=== PATIENT | female | born 1955 | race Caucasian/White ===

== ENCOUNTER 2016-05-03 10:28 | Outpatient (CLI) | payer OTHER | END 2016-05-03 10:29 | disposition home or self-care (01) | DX: E11.9 Type 2 diabetes mellitus without complications (principal) ==

== ENCOUNTER 2016-05-27 12:09 | Outpatient (CLI) | payer OTHER | END 2016-05-27 12:10 | disposition home or self-care (01) | DX: R92.1 Mammographic calcification found on diagnostic imaging of breast (principal) ==

== ENCOUNTER 2016-10-16 14:01 | Outpatient (CLI) | payer OTHER ==
[2016-10-16 20:26] LABS: CREATININE 1.4 mg/dL (0.4-1.0)
== END 2016-10-16 14:02 ==
LOC: LAB.WCP 14:01
PROVIDERS: ATTEND Family Medicine
DX: C79.51 Secondary malignant neoplasm of bone (principal)
CPT/HCPCS: 36415; 82565

== ENCOUNTER 2016-10-21 11:31 | Outpatient (CLI) | payer OTHER ==
--- NOTE | 2016-10-21 18:56 | CT Report ---
NONCONTRAST CT EXAM OF THE CHEST: 10/21/2016 CLINICAL HISTORY: A 61-year-old female who has a chronic cough. Only a noncontrast exam was done. Patient had an elevated creatinine of 1.4 with a GFR today of only 38. TECHNIQUE: Noncontrast CT exam was done in axial, coronal, and sagittal reconstruction images at 5 x 5 mm intervals. No comparison studies are available. In accordance with CT protocol optimization, one or more of the following dose reduction techniques were utilized for this exam: automated exposure control, adjustment of mA and/or KV based on patient size, or use of iterative reconstructive technique. FINDINGS: Thyroid appears mildly enlarged. Recommend clinical correlation. Thyroid enlargement can be a result of familial goiter, Graves disease, or Gosia's thyroiditis. Surgical clips are seen in the right axilla and right breast with some calcifications also noted in the right breast. This most likely is the result of a lumpectomy with axillary node dissection. There is some associated scarring present in the right breast especially toward the tail of the right breast. Left axilla and left breast show no significant abnormality. Mediastinum shows a few small benign-appearing lymph nodes. Normal cardiac size is seen. Vascular calcification is noted in the aortic arch and at the origin of the right subclavian artery. Lungs demonstrate an equivocal finding in regard to a tiny 3 mm nodule in the lateral aspect of the right middle lobe. Nodules of this size are not considered significant and do not require followup exams. No significant infiltrates are seen. No bronchial thickening is noted. Adrenal glands appear normal. Bones demonstrate sclerotic change along the anterior aspect of one of the lower thoracic vertebrae. This most likely is the result of osteoarthritis. Examination is negative for metastatic bone disease. Spleen demonstrates mild nonspecific enlargement. Recommend clinical correlation. IMPRESSION: 1. MEDIASTINUM AND LUNGS SHOW NO SIGNIFICANT ABNORMALITY. 2. MILD NONSPECIFIC ENLARGEMENT OF THE SPLEEN IS SEEN. 3. EVIDENCE OF RIGHT BREAST LUMPECTOMY WITH RIGHT AXILLARY NODE DISSECTION IS NOTED. JOB #: [id number] EXT JOB #: [id number] [facility]
== END 2016-10-21 11:32 | disposition home or self-care (01) ==
LOC: DI 11:31
PROVIDERS: ATTEND Family Medicine
DX: R05 Cough (principal)
CPT/HCPCS: 71250

== ENCOUNTER 2016-11-21 11:48 | Outpatient (CLI) | payer OTHER ==
--- NOTE | 2016-11-21 17:13 | CT Report ---
CT PARANASAL SINUSES WITHOUT CONTRAST: 11/21/2016 CLINICAL INDICATION: Sinusitis, chronic cough. Axial CT images of the paranasal sinuses were obtained without contrast. Sagittal and coronal recons tructions were performed. In accordance with CT protocol optimization, one or more of the following dose reduction techniques w ere utilized for this exam: automated exposure control, adjustment of mA and/or KV based on patient size, or use of iterative reconstructive technique. There is mucosal thickening in the right maxillary sinus and right ethmoid air cells. The right osti omeatal unit is patent. The nasal septum is midline. The other paranasal sinuses are clear. The le ft ostiomeatal unit is patent. There is no evidence of osseous destruction. The visualized intraorb ital contents are unremarkable. IMPRESSION: CHRONIC RIGHT MAXILLARY AND ETHMOID SINUS DISEASE. JOB #: [id number] EXT JOB #:[id number]
== END 2016-11-21 11:49 | disposition home or self-care (01) ==
LOC: DI 11:48
PROVIDERS: ATTEND Family Medicine
DX: J32.0 Chronic maxillary sinusitis (principal); J32.2 Chronic ethmoidal sinusitis
CPT/HCPCS: 70486

== ENCOUNTER 2016-11-27 13:01 | Outpatient (CLI) | payer OTHER ==
--- NOTE | 2016-11-28 11:11 | Mammography Report ---
DIGITAL DIAGNOSTIC BILATERAL MAMMOGRAM: 11/27/2016 CLINICAL INDICATION: History of right breast cancer, status post lumpectomy and radiation therapy, fo llowup calcifications. TECHNIQUE: Bilateral CC, MLO views, right true lateral and spot magnification views. COMPARISON: 05/27/2016, 11/24/2015, 10/23/2015, 10/21/2014, 08/20/2013, 08/05/2012, 06/26/2011, 06/05, 06/02/2009. FINDINGS: The breasts again demonstrate scattered fibroglandular densities. Postoperative and posttr eatment changes in the right breast are stable. Calcifications in the right lower central breast cont inue to coarsen, likely posttreatment in etiology. No suspicious masses, clustered microcalcification s, or regions of architectural distortion are identified. IMPRESSION: PROBABLE BENIGN FINDINGS. RECOMMENDATION: DIAGNOSTIC RIGHT MAMMOGRAM IN SIX MONTHS, TO ASSURE STABILITY. BIRADS CATEGORY 3-PROBABLE BENIGN FINDINGS. STANDARD QUALIFYING STATEMENTS 1. This examination was reviewed with the aid of Computer-Aided Detection (CAD). 2. A negative or benign imaging report should not delay biopsy if clinically suspicious findings are present. Consider surgical consultation if warranted. More than 5% of cancers are not identified by i maging. 3. Dense breasts may obscure an underlying neoplasm. JOB #: [id number] EXT JOB #:
== END 2016-11-27 13:02 | disposition home or self-care (01) ==
LOC: DI 13:01
PROVIDERS: ATTEND Family Medicine
DX: R92.1 Mammographic calcification found on diagnostic imaging of breast (principal); Z85.3 Personal history of malignant neoplasm of breast
CPT/HCPCS: 77066

== ENCOUNTER 2017-01-16 09:43 | Day surgery (SDC) | payer OTHER ==
[2017-01-16] MEDS ORDERED: MIDAZOLAM 2 MG/2 ML VIAL IVP ONE (10:44)
[2017-01-16] MEDS ORDERED: ONDANSETRON 4 MG/2 ML VIAL IVP ONE (10:44)
[2017-01-16] MEDS ORDERED: fentaNYL 100 MCG/2 ML VIAL IVP ONE (10:44)
[2017-01-16] MEDS ORDERED: LACTATED RINGERS 1,000 ML IV ONE (10:50)
[2017-01-16 11:44] VITALS: BP 102/68
== END 2017-01-16 09:44 | disposition home or self-care (01) ==
LOC: SDS 09:43
PROVIDERS: ATTEND Surgery
PROC: 0DB78ZX Excision of Stomach, Pylorus, Via Natural or Artificial Opening Endoscopic, Diagnostic (ICD-10-PCS; principal; 2017-01-16 11:00)
DX: K31.89 Other diseases of stomach and duodenum (principal); C79.51 Secondary malignant neoplasm of bone; C50.911 Malignant neoplasm of unspecified site of right female breast; E11.9 Type 2 diabetes mellitus without complications; Z79.4 Long term (current) use of insulin; K21.9 Gastro-esophageal reflux disease without esophagitis; Z87.891 Personal history of nicotine dependence
CPT/HCPCS: 43239; 88305; J7120

== ENCOUNTER 2017-06-12 06:08 | Day surgery (SDC) | payer OTHER ==
[2017-06-12 06:57] LABS: CALCIUM 9.1 mg/dL (8.5-10.3); CREATININE 2.7 mg/dL (0.4-1.0)
--- NOTE | 2017-06-12 07:22 | HISTORY & PHYSICAL EXAMINATION ---
HPI - History of Present Illness HPI Comment/Other: Francisca is here for colonoscopy for severe transfusion dependent anemia. Past Medical History: Reviewed history from 01/08/2017 and no changes required: NKDA R breast cancer--infiltrating ductal cancer. Rx with surgery, chemo and radiation. 04/25 nodes +. Tumor 2.5cm in size. Transitional Cell Bladder Ca Anxiety Chest Pain Heart Murmur High Blood Pressure Chronic Cough Diabetes Acid Reflux Heartburn Past Surgical History: Reviewed history from 01/08/2017 and no changes required: R lumpectomy and axillary node dissection--2006 Cataract Extraction--R eye 2012 Perirectal Abcess C-Sections Family History Summary: Reviewed history Last on 01/08/2017 and no changes required:05/07/2017 Father (biol.) - Has a father - Committed suicide. - Entered On: 2013 Mother (biol.) - Has Family History of Heart Disease - Entered On: 05/07/2017 Mother (biol.) - Has Family History of Kidney/Renal Disease - Entered On: 2017 Sister (full) - Has Family History of Uterine Cancer - Entered On: 05/07/2017 Sister (full) - Has Family History of Other Cancer - Entered On: 05/07/2017 General Comments - FH: Sister had endometrial cancer. Father committed suicide. Sister has bipolar disorder. Parkinson's--grandfather. Social History: Reviewed history from 03/26/2010 and no changes required: Patient is a former smoker. Alcohol Use - no , one son Risk Factors: Smoked Tobacco Use: Former smoker Cigarettes: Yes -- 1 pack(s) per day, Year quit: 1995 Years Since Last Quit: 22 Drug use: no Alcohol use: no Exercise: no Review of Systems General Denies weight loss. GI Bleeding hemorrhoids. Denies vomiting, diarrhea, constipation, change in bowel habits, melena and hematochezia. CV Complains of chest pains. Resp Denies shortness of breath. Psych Denies anxiety. Heme easy bruising, nose bleeds anemia Medications were reviewed with the patient during this visit. Allergies were reviewed with the patient during this visit. Allergies: LEVAQUIN (Critical) INDOCIN (Critical) * TAPE (Critical) * MICARDIS (Critical) * METFORMIN (Critical) * LISINOPRIL (Moderate) Physical Exam General: normal appearance and obese. Lungs: clear bilaterally to A & P Heart: regular rate and rhythm, S1, S2 without murmurs, rubs, gallops, or clicks Abdomen: bowel sounds positive; abdomen soft and non-tender without masses, organomegaly, or hernias noted Pulses: pulses normal in all 4 extremities Extremities: no clubbing, cyanosis, edema, or deformity noted with normal full range of motion of all joints Cervical Nodes: no significant adenopathy Psych: alert and cooperative; normal mood and affect; normal attention span and concentration Impression & Recommendations: Problem # 1: severe anemia Will proceed with colonoscopy. PMH/PSH - Past Medical History Cardiovascular: positive: Hypertension, High cholesterol, Murmur Respiratory: positive: None Neuro: positive: None Endocrine/Autoimmune: positive: Type 2 diabetes GI: positive: Hemorrhoids : positive: Renal insuffiency HEENT: positive: Chronic sinusitis Psych: positive: None Musculoskeletal: positive: Fatigue, Chronic back pain Derm: positive: Psoriasis MRSA Hx?: No - Past Surgical History General: positive: Colonoscopy /FINGER WAVER: positive: section HEENT: positive: Cataracts Social & Family Hx - Social History Does the pt smoke?: No Smoking Status: Former smoker Meds/Allgy - Home Medications Home Medications: Ambulatory Orders Medication Instructions Recorded Confirmed Folic Acid 1 mg PO DAILY 10/21/12 06/12/17 Insulin Aspart [Novolog Flexpen] 9 - 15 units SQ TIDWM 03/20/15 06/12/17 Insulin Glargine [Lantus Solostar] 40 units SQ QPM 03/20/15 06/12/17 Letrozole [Femara] 2.5 mg PO DAILY 03/20/15 06/12/17 Palbociclib [Ibrance] 125 mg PO .21DAYSON,7DAYSOFF 03/20/15 06/12/17 Cyclobenzaprine HCl 10 mg PO PRN PRN 06/10/17 06/10/17 Famotidine 20 mg PO DAILY 06/10/17 06/12/17 Potassium Chloride [Klor-Con M20] 20 meq PO BID 06/10/17 06/12/17 amLODIPine [Norvasc] 5 mg PO DAILY 06/10/17 06/12/17 - Allergies Allergies/Adverse Reactions: Allergies Allergy/AdvReac Type Severity Reaction Status Date / Time indomethacin [From Indocin] Allergy Intermediate Rash Verified 06/10/17 15:10 lisinopril Allergy Intermediate cough Verified 06/10/17 15:10 levofloxacin [From Levaquin] Allergy Unknown rash? Verified 06/10/17 15:10 oxycodone HCl * AdvReac Emesis Verified 06/10/17 15:10 [From Percocet] shrimp Allergy Intermediate Hives Uncoded 06/10/17 15:10 Exam - Vital Signs Vital Signs: Vital Signs x48h Temp Pulse Resp BP Pulse Ox 06/12/17 06:41 37.4 C 116 H 16 104/85 H 100 Results - Lab Results Fish Bones: 06/12/17 06:45 Other Lab Results: Lab Results x24hrs 06/12/17 06/12/17 Range/Units 06:45 06:43 Sodium 137 (135-145) mmol/L Potassium 3.2 L (3.5-5.0) mmol/L Chloride 110 (101-111) mmol/L Carbon Dioxide 14 L (21-32) mmol/L Anion Gap 13.0 (6-13) BUN 19 (6-20) mg/dL Creatinine 2.7 H (0.4-1.0) mg/dL Estimated GFR (MDRD) 18 L (>89) Glucose 182 H (70-100) mg/dL POC Whole Bld Glucose 177 H (70 - 100) mg/dL Calcium 9.1 (8.5-10.3) mg/dL
[2017-06-12] MEDS ORDERED: LACTATED RINGERS 1,000 ML IV ONE (07:24)
[2017-06-12] MEDS ORDERED: LIDOCAINE 1% 50 ML MDV ONE (07:26)
[2017-06-12] MEDS ORDERED: LIDOCAINE-MPF 2% 5 ML VIAL IM ONE (07:57)
[2017-06-12] MEDS ORDERED: PROPOFOL 200 MG/20 ML VIAL IVP ONE (07:57)
[2017-06-12 08:40] VITALS: BP 116/54
== END 2017-06-12 06:09 | disposition home or self-care (01) ==
LOC: SDS 06:08
PROVIDERS: ATTEND Surgery
PROC: 0DJD8ZZ Inspection of Lower Intestinal Tract, Via Natural or Artificial Opening Endoscopic (ICD-10-PCS; principal; 2017-06-12 07:30)
DX: D64.9 Anemia, unspecified (principal); K57.30 Diverticulosis of large intestine without perforation or abscess without bleeding; K64.8 Other hemorrhoids; K64.4 Residual hemorrhoidal skin tags; E11.9 Type 2 diabetes mellitus without complications; Z79.4 Long term (current) use of insulin; I10 Essential (primary) hypertension; L40.9 Psoriasis, unspecified; E78.00 Pure hypercholesterolemia, unspecified; Z87.891 Personal history of nicotine dependence
CPT/HCPCS: 36415; 45378; 80048; J7120

== ENCOUNTER 2017-06-14 11:31 | Inpatient (IN) | payer OTHER ==
[2017-06-14] MEDS ORDERED: SODIUM CHLORIDE 0.9% 1,000 ML IV ONE ×2 (11:57)
[2017-06-14] MEDS ORDERED: ONDANSETRON 4 MG/2 ML VIAL IVP STA (11:58)
[2017-06-14] MEDS ORDERED: fentaNYL 100 MCG/2 ML VIAL IVP STA (11:58)
--- NOTE | 2017-06-14 12:19 | ED Physician Documentation ---
PD HPI ABD PAIN - Stated complaint Stated Complaint: FEMALE - Chief complaint Chief Complaint: Abd Pain - History obtained from History obtained from: Patient - History of Present Illness Timing - onset: How many days ago (2) Timing - duration: Days (2) Timing - details: Gradual onset Pain level max: 10 Pain level now: 10 Quality: Aching, Pain Location: RLQ, Other (rectal) Improved by: Other (nothing) Worsened by: Other (everything) Associated symptoms: Fever. No: Nausea, Vomiting, Hematemesis, Melena, Hematochezia Recently seen: Surgery (had a colonoscopy 2 weeks ago) - Additional information Additional information: pt with a history of metastatic breast cancer with mets to bones. Currently on chemotherapy. Had renal failure in april of this year at [facility]. States pain of the R side of abdomen since then. Now worse since the colonoscopy. Review of Systems Ten Systems: 10 systems reviewed and negative Constitutional: reports: Fever (today), Chills Ears: denies: Ear pain Nose: reports: Rhinorrhea / runny nose, Congestion Throat: denies: Sore throat Cardiac: denies: Chest pain / pressure Respiratory: reports: Cough (dry) GI: denies: Vomiting, Diarrhea Skin: denies: Rash Musculoskeletal: denies: Neck pain, Back pain Neurologic: denies: Headache PD PAST MEDICAL HISTORY - Past Medical History Cardiovascular: Hypertension, High cholesterol, Murmur Respiratory: None Neuro: None Endocrine/Autoimmune: Type 2 diabetes GI: Hemorrhoids : Renal insuffiency HEENT: Chronic sinusitis Psych: None Musculoskeletal: Fatigue, Chronic back pain Derm: Psoriasis - Past Surgical History Past Surgical History: Yes General: Colonoscopy /CORE PLACER: section HEENT: Cataracts - Present Medications Home Medications: Ambulatory Orders Medication Instructions Recorded Confirmed Folic Acid 1 mg PO DAILY 10/21/12 06/14/17 Insulin Aspart [Novolog Flexpen] 10 units SUBQ TIDWM 03/20/15 06/14/17 Insulin Glargine [Lantus Solostar] 40 units SUBQ QPM 03/20/15 06/14/17 Letrozole [Femara] 2.5 mg PO DAILY 03/20/15 06/14/17 Palbociclib [Ibrance] 125 mg PO .21DAYSON,7DAYSOFF 03/20/15 06/14/17 Cyclobenzaprine HCl 10 mg PO TID PRN 06/10/17 06/14/17 Famotidine 20 mg PO BID 06/10/17 06/14/17 Potassium Chloride [Klor-Con M20] 20 meq PO BIDWM 06/10/17 06/14/17 amLODIPine [Norvasc] 5 mg PO DAILY 06/10/17 06/14/17 Aspirin [Aspirin EC] 81 mg PO DAILY 06/14/17 06/14/17 Atorvastatin Calcium 40 mg PO QPM 06/14/17 06/14/17 Spironolactone [Spironolactone] 50 mg PO DAILY 06/14/17 06/14/17 - Allergies Allergies/Adverse Reactions: Allergies Allergy/AdvReac Type Severity Reaction Status Date / Time indomethacin [From Indocin] Allergy Intermediate Rash Verified 06/14/17 11:47 lisinopril Allergy Intermediate cough Verified 06/14/17 11:47 levofloxacin [From Levaquin] Allergy Unknown rash? Verified 06/14/17 11:47 oxycodone HCl * AdvReac Emesis Verified 06/14/17 11:47 [From Percocet] shrimp Allergy Intermediate Hives Uncoded 06/14/17 11:47 - Social History Does the pt smoke?: No Smoking Status: Former smoker PD ED PE NORMAL - Vitals Vital signs reviewed: Yes - General General: Alert and oriented X 3, No acute distress - HEENT HEENT: Moist mucous membranes - Neck Neck: Supple, no meningeal sign - Cardiac Cardiac: RRR - Respiratory Respiratory: No respiratory distress, Clear bilaterally - Abdomen Abdomen: Other (TTP RLQ at Mcburney's point. + rebound and guarding.) - Derm Derm: Warm and dry - Neuro Neuro: Alert and oriented X 3 - Psych Psych: Normal mood, Normal affect Results - Vitals Vitals: Vital Signs - 24 hr 06/14/17 06/14/17 11:42 13:58 Temperature 38.6 C H 38.5 C H Heart Rate 111 H 98 Respiratory 22 16 Rate Blood Pressure 133/63 H 99/51 L O2 Saturation 100 98 Oxygen O2 Source Room air - Labs Labs: Laboratory Tests 06/14/17 06/14/17 06/14/17 12:23 12:23 12:23 WBC 2.1 L RBC 2.25 L Hgb 7.6 L Hct 21.6 L MCV 96.0 MCH 33.9 H MCHC 35.4 RDW 23.8 H Plt Count 67 L MPV 10.0 Neut # Not Reportable Lymph # Not Reportable [place] # Not Reportable Eos # Not Reportable Baso # Not Reportable Absolute Nucleated RBC Not Reportable Total Counted 100 Band Neuts % (Manual) 5 Abnorm Lymph % (Manual) 0 Myelocytes % 2 H Promyelocytes % 1 H Nucleated RBC % Not Reportable Neutrophils # (Manual) 1.7 Lymphocytes # (Manual) 0.3 L Monocytes # (Manual) 0.0 Eosinophils # (Manual) 0.0 Basophils # (Manual) 0.0 Differential Comment MANUAL DIFFERENTIAL Platelet Estimate DECREASED (<130,000) RBC Morph Micro Appear OVALOCYTES Sodium 136 Potassium 2.6 L Chloride 109 Carbon Dioxide 16 L Anion Gap 11.0 BUN 15 Creatinine 2.2 H Estimated GFR (MDRD) 23 L Glucose 135 H Lactic Acid Calcium 8.7 Total Bilirubin 1.5 H AST 34 ALT 20 Alkaline Phosphatase 100 Total Protein 7.9 Albumin 3.7 Globulin 4.2 Albumin/Globulin Ratio 0.9 L Lipase 77 H Urine Color Urine Clarity Urine pH Ur Specific [place] Urine Protein Urine Glucose (UA) Urine Ketones Urine Occult Blood Urine Nitrite Urine Bilirubin Urine Urobilinogen Ur Leukocyte Esterase Urine RBC Urine WBC Ur Squamous Epith Cells Urine Bacteria Urine Casts Ur Microscopic Review Urine Culture Comments Blood Type Blood Type Recheck A POSITIVE Antibody Screen Crossmatch IS Only 06/14/17 06/14/17 06/14/17 12:57 13:27 13:27 WBC RBC Hgb Hct MCV MCH MCHC RDW Plt Count MPV Neut # Lymph # [place] # Eos # Baso # Absolute Nucleated RBC Total Counted Band Neuts % (Manual) Abnorm Lymph % (Manual) Myelocytes % Promyelocytes % Nucleated RBC % Neutrophils # (Manual) Lymphocytes # (Manual) Monocytes # (Manual) Eosinophils # (Manual) Basophils # (Manual) Differential Comment Platelet Estimate RBC Morph Micro Appear Sodium Potassium Chloride Carbon Dioxide Anion Gap BUN Creatinine Estimated GFR (MDRD) Glucose Lactic Acid 1.7 Calcium Total Bilirubin AST ALT Alkaline Phosphatase Total Protein Albumin Globulin Albumin/Globulin Ratio Lipase Urine Color YELLOW Urine Clarity CLEAR Urine pH 6.0 Ur Specific [place] 1.025 Urine Protein 100 H Urine Glucose (UA) NEGATIVE Urine Ketones NEGATIVE Urine Occult Blood MODERATE H Urine Nitrite NEGATIVE Urine Bilirubin NEGATIVE Urine Urobilinogen 1 (NORMAL) Ur Leukocyte Esterase NEGATIVE Urine RBC 0-5 Urine WBC 0-3 Ur Squamous Epith Cells RARE Squamous Urine Bacteria Few Urine Casts 0-2 Granular Casts Ur Microscopic Review INDICATED Urine Culture Comments NOT INDICATED Blood Type A POSITIVE Blood Type Recheck Antibody Screen NEGATIVE Crossmatch IS Only See Detail - Rads (name of study) CT abd/pelvis Radiology: Prelim report reviewed, EMP read contemporaneously, See rad report ( Possible mild ascending colon acute colitis. Mild stranding seen in the bilateral lateral recesses and paracolic gutters and there could be a minimal amount of ascites present. Normal appendix. Multiple areas of sclerosis are seen in the right iliac bone, left proximal femur, L4 pedicle and transverse process and at the T9 vertebral body, could represent blastic bone metastasis. Correlate clinically. Perianal abscesses with gas, the largest is on the right measuring 1.9 x 3.8 x 2.3 cm. The perianal abscess on the left side measures 3.2 x 1.2 x 1.9 cm. Perianal gas pockets are seen more proximally. ) PD MEDICAL DECISION MAKING - ED course Complexity details: reviewed results, re-evaluated patient, considered differential, d/w patient, d/w family ED course: Patient is a 62-year-old female who presents to the emergency department with a perirectal abscess, concern for early sepsis. Given Zosyn and Flagyl. Her fever broke with Ofirmev. IV fluids given. Consulted general surgery, Dr. Cruz we will plan to take the patient to the operating room once she is stable. Discussed the case with Dr. Gutierrez, hospitalist who will admit the patient to the ICU for further care. This document was made in part using voice recognition software. While efforts are made to proofread this document, sound alike and grammatical errors may occur. Departure - Departure Disposition: ED Transfer to [facility] Clinical Impression: Hypokalemia, Perirectal abscess, Acute renal insufficiency Fever Qualifiers: Fever type: unspecified Qualified Code(s): R50.9 - Fever, unspecified T2DM (type 2 diabetes mellitus) Qualifiers: Diabetes mellitus complication status: with unspecified complications Diabetes mellitus fdc insulin use: unspecified fdc insulin use status Qualified Code(s): E11.8 - Type 2 diabetes mellitus with unspecified complications Condition: Stable Discharge Date/Time: 06/14/17 17:10
[2017-06-14 12:36] LABS: BASOPHILS % (AUTO) 3.5 %; EOSINOPHILS % (AUTO) 0.1 %; HGB - HEMOGLOBIN 7.6 g/dL (12.0-16.0); LYMPHOCYTES % (AUTO) 12.2 %; MEAN CORPUSCULAR HEMOGLOBIN 33.9 pg (27.0-31.0); MEAN CORPUSCULAR HGB CONC 35.4 g/dL (32.0-36.0); NEUTROPHILS % (AUTO) 72.2 %; PLT - PLATELET COUNT 67 10^3/uL (130-450); RED BLOOD COUNT 2.25 10^6/uL (4.20-5.40); RED CELL DISTRIBUTION WIDTH 23.8 % (12.0-15.0); WHITE BLOOD COUNT 2.1 x10^3/uL (4.8-10.8)
[2017-06-14 12:43] LABS: ABNORMAL LYMPHS % (MANUAL) 0 %
[2017-06-14 12:51] LABS: ALBUMIN 3.7 g/dL (3.2-5.5); ALBUMIN/GLOBULIN RATIO 0.9 (1.0-2.2); BILIRUBIN,TOTAL 1.5 mg/dL (0.2-1.0); CALCIUM 8.7 mg/dL (8.5-10.3); CREATININE 2.2 mg/dL (0.4-1.0); TOTAL PROTEIN 7.9 g/dL (6.7-8.2)
[2017-06-14] MEDS ORDERED: ACETAMINOPHEN 1,000 MG/100 ML 100 ML IV STA (13:06)
[2017-06-14] MEDS ORDERED: HYDROmorphone 1 MG/ML SYRINGE IVP STA ×2 (13:07→15:33)
[2017-06-14 13:10] LABS: BILIRUBIN,URINE NEGATIVE (NEGATIVE); GLUCOSE, URINE (UA) NEGATIVE (NEGATIVE); KETONES,URINE (UA) NEGATIVE (NEGATIVE); LEUKOCYTE ESTERASE, URINE NEGATIVE (NEGATIVE); NITRITE,URINE NEGATIVE (NEGATIVE); OCCULT BLOOD,URINE MODERATE (NEGATIVE); PROTEIN,URINE 100 mg/dL (NEGATIVE); UROBILINOGEN,URINE 1 (NORMAL) E.U./dL (NORMAL)
[2017-06-14 13:14] LABS: BAND NEUTROPHILS % (MANUAL) 5 %; LYMPHOCYTES # (MANUAL) 0.3 10^3/uL (1.5-3.5); LYMPHOCYTES % (MANUAL) 12 %; MYELOCYTES % (MANUAL) 2 %; NEUTROPHILS # (MANUAL) 1.7 10^3/uL (1.5-6.6); NEUTROPHILS % (MANUAL) 78 %; PROMYELOCYTES % (MANUAL) 1 %
[2017-06-14 13:17] LABS: PLATELET ESTIMATE, MANUAL DECREASED (<130,000) (NORMAL)
[2017-06-14 13:17] LABS: CLARITY,URINE CLEAR (CLEAR)
[2017-06-14 13:20] LABS: DIFFERENTIAL COMMENT MANUAL DIFFERENTIAL
[2017-06-14 13:26] LABS: BACTERIA,URINE Few /HPF (None Seen); RBC,URINE 0-5 /HPF (0-5); SQUAMOUS EPITHELIAL CELL,UR RARE Squamous (<= Few)
[2017-06-14] MEDS ORDERED: metroNIDAZOLE 500 MG/100 ML 500 MG/100 ML BAG IV ONE (14:34)
[2017-06-14] MEDS ORDERED: PIPERACILLIN/TAZOBACTAM 4.5 GM in SODIUM CHLORIDE 0.9% MINIBAG 100 ML IV STA (14:34)
[2017-06-14] MEDS ORDERED: POTASSIUM CHLOR 10 MEQ/100 ML 10 MEQ/100 ML BAG IV ONE ×2 (14:34→18:00)
--- NOTE | 2017-06-14 15:23 | CT Report ---
EXAM: CT ABDOMEN AND PELVIS EXAM DATE: 06/14/2017 02:20 PM. CLINICAL HISTORY: Right lower quadrant abdominal pain status post colonoscopy 2 days ago. Rectal pain . History of renal failure. Not on dialysis. COMPARISONS: None. TECHNIQUE: Routine helical CT imaging was performed through the abdomen and pelvis. IV contrast: No. Enteric contrast: No. Reconstructions: Coronal and sagittal. In accordance with CT protocol optimization, one or more of the following dose reduction techniques w ere utilized for this exam: automated exposure control, adjustment of mA and/or KV based on patient s ize, or use of iterative reconstructive technique. FINDINGS: Lung bases: No acute findings. Aortic valve calcifications. Liver: Unremarkable. Gallbladder: Unremarkable. Bile ducts: Unremarkable. Pancreas: Unremarkable. Spleen: Unremarkable. Adrenals: Unremarkable. Kidneys: Unremarkable. No renal calculus. No hydronephrosis. Bowel: Normal appendix. No dilated bowel loops are seen to suggest obstruction. Mild stranding seen i n the bilateral lateral recesses and paracolic gutters and there could be a minimal amount of ascites present. No free air. No abscess. Mild stranding is most prominent adjacent to the ascending colon a nd mild acute colitis is not excluded. Mild amount of ascending colon colonic wall thickening is poss ible. Pelvis: The bladder and remaining pelvic organs appear unremarkable. Rectum appears unremarkable. Vascular structures: No acute findings. Bones: Multiple areas of sclerosis are seen in the right iliac bone, left proximal femur, L4 pedicle and transverse process and at the T9 vertebral body, could represent blastic bone metastasis. Correla te clinically. IMPRESSION: 1. Possible mild ascending colon acute colitis. 2. Mild stranding seen in the bilateral lateral recesses and paracolic gutters and there could be a m inimal amount of ascites present. 3. Normal appendix. 4. Multiple areas of sclerosis are seen in the right iliac bone, left proximal femur, L4 pedicle and transverse process and at the T9 vertebral body, could represent blastic bone metastasis. Correlate oscar GROSS Referring Provider Line: [phone] SITE ID: [id number]
[2017-06-14] MEDS ORDERED: ONDANSETRON 4 MG/2 ML VIAL IVP PRN (15:48)
[2017-06-14] MEDS ORDERED: ACETAMINOPHEN 1,000 MG/100 ML 100 ML IV ONE (17:26)
[2017-06-14] MEDS: SODIUM CHLORIDE 0.9% 1,000 ML IV SCH (17:51)
[2017-06-14] MEDS: PANTOPRAZOLE 40 MG VIAL IVP SCH (18:18)
[2017-06-14] MEDS: SODIUM CHLORIDE FLUSH 0.9% 10 ML SYRINGE IVP PRN (18:21)
[2017-06-14] MEDS ORDERED: diphenhydrAMINE INJ 50 MG/ML VIAL IVP ONE (18:30)
[2017-06-14] MEDS ORDERED: LORazepam 2 MG/ML VIAL IVP SCH (19:00)
[2017-06-14] MEDS ORDERED: LIDOCAINE-MPF 1% 5 ML VIAL ONE (19:20)
[2017-06-14] MEDS ORDERED: POTASSIUM CHLOR 10 MEQ/100 ML 10 MEQ/100 ML BAG IV SCH (20:00)
--- NOTE | 2017-06-14 20:01 | XRAY Report ---
EXAM: CHEST RADIOGRAPHY EXAM DATE: 06/14/2017 07:41 PM. CLINICAL HISTORY: Line placement. COMPARISON: 07/22/2016. TECHNIQUE: 1 view. FINDINGS: Lungs/Pleura: No focal opacities evident. No pleural effusion. No pneumothorax. Mediastinum: Within exam limitations, the cardiomediastinal contour is normal. Other: Right IJ line to the low SVC. IMPRESSION: Right IJ line to the low SVC, otherwise unremarkable single view chest. [facility] Referring Provider Line: [phone] SITE ID: [id number]
[2017-06-14] MEDS: INSULIN REGULAR HUMAN 100 UNIT/1 ML 10 ML MDV SUBQ SCH (20:42)
[2017-06-14] MEDS: metroNIDAZOLE 500 MG/100 ML 500 MG/100 ML BAG IV SCH (21:05)
[2017-06-14] MEDS: INSULIN GLARGINE 300 UNIT/3 ML PEN SUBQ SCH (21:06)
[2017-06-14] MEDS: POTASSIUM CHLOR 20 MEQ/100 ML 20 MEQ/100 ML BAG IV SCH ×3 (21:11→23:18)
[2017-06-14] MEDS: PIPERACILLIN/TAZOBACTAM 3.375 GM in SODIUM CHLORIDE 0.9% MINIBAG 100 ML IV SCH (22:06)
--- NOTE | 2017-06-14 22:36 | HISTORY & PHYSICAL EXAMINATION ---
DATE OF SERVICE: 06/14/2017 Physician: Aurora Gutierrez MD PRIMARY CARE PROVIDER: Juanito Wilkins DO ADMITTING PROVIDER: Aurora Gutierrez MD CHIEF COMPLAINT: Severe rectal pain. HISTORY OF PRESENT ILLNESS: The patient is an unfortunate 62-year-old female who already has suffered the consequences of a perirectal abscess as a complication of internal hemorrhoids with the use of Ibrance, status post radiation therapy for bladder cancer to the pelvis in March 2015. At that time, she was admitted with the rectal abscess and had incision and debridement by the local surgeon litigation examiner. Admission was complicated by hypokalemia and acute kidney injury. Between then and now, the patient has begun to have symptomatic anemia and has been requiring 1-2 units of packed cells a month. She has already had a previous colonoscopy in 2010 or so. It was done at [facility]. She underwent an EGD, looking for causes of anemia 01/24/2017 here at [facility]. She had diffuse erythematous mucosa in the esophagus, stomach, and duodenum, but the pathology report was negative. She did not have a colonoscopy at that time because she was unable to do the colonoscopy prep. She vomited the prep and did not complete the colonoscopy. She has continued to have anemia, and her oncologist has been pressing her to get the workup done. She finally agreed to do the colonoscopy and underwent the colonoscopy with Dr. Hinson on 06/12/2017 of this year. The colonoscopy found her to have diverticulosis and internal hemorrhoids. Her other GI history does consist of gastroesophageal reflux disease, but she has no other pathology. About 2 days ago, she started developing aching rectal pain, made worse with bowel movements. The pain occasionally shot into her right lower quadrant and right labial area and was agonizing. Sitting on it made it worse. She did not have any rectal bleeding. The pain finally got so severe that she came to the emergency room, and she was seen by Dr. Kim. She is febrile to 38.6, tachycardic to 111. Respiratory rate was 111. Her blood pressure started out at 133/63 and then dropped to 99/51. She has tender McBurney point, rebound and guarding. She does have bowel sounds. CT scans shows a perirectal abscess. It is invading into the gluteus juan. She has mild stranding seen in the bilateral lateral recesses and pericolic gutters. The perianal abscesses do have gas. It is both on the right and left side. She also continues to have multiple areas of sclerosis from her metastatic breast cancer. Her white cell count is low. This is chronic for her. She is 2.1, and she has 5% bands, 2% myelocytes, and 1% promyelocytes. Her chronic anemia is still evident at 7.6. Her last transfusion was a month ago. She is hypokalemic to 2.6, and creatinine is elevated to 2.2. Lactic acid is 1.7. Preoperative evaluation and review of systems showed her to have chronic dyspnea on exertion. She says that she gets short of breath with walking up a flight of stairs on a regular basis, much less when she is anemic. She develops mild central aching chest pain that is nonradiating, she is very anemic, as she does exertion. This was evaluated with echocardiogram and nuclear medicine stress test on 05/13/2017. She has a chronic murmur since childhood. The echocardiogram shows mild concentric left ventricular hypertrophy, an ejection fraction of 55%-60%. She has generalized normal wall motion. She does have aortic stenosis of 1.7 cm cm2 with a gradient of 9 mmHg. The stress test has an ejection fraction with exertion at 84% and dropped into the 70s at rest. She has an extensive reversible defect that is read as probably artifact in this obese lady. Cardiology evaluation done with Dr. Cervantes was done 05/23/2017 as he interpreted those results. He feels that this woman has chest pain due to severe anemia and mild to moderate coronary artery disease. He does not think that she should result in an intervention, and he recommends maximal medical management for coronary artery disease, which includes aspirin, atorvastatin, optimal blood pressure control with amlodipine, continual optimal diabetes management, and work on weight loss. She was hypokalemic with his visit as well. PAST MEDICAL HISTORY 1. Type 2 diabetes mellitus for over 10 years. Complications include nephropathy, mild neuropathy, no retinopathy. 2. Hypertension. 3. Right breast infiltrating ductal carcinoma in 2006, status post lumpectomy, radiation for 35 treatments, and chemotherapy for 12 weeks before radiation and 12 weeks after radiation. In September 2014, she underwent a PET scan, which showed her to have diffuse bony metastatic disease. She had 3 weeks of radiation therapy in October 2014 and was started on Ibrance 10/24/2014 for 21 days a month. Then, a 7-day break. A PET scan done 05/09/2017 at [facility] shows numerous sclerotic lesions scattered throughout the osseous skeleton, compatible with metastatic disease. They are not significantly changed in size, contour or number compared to 04/17/2016. She has no new lesions. No lymphadenopathy. Splenomegaly is present of uncertain etiology. She has trace free fluid in the cul-de-sac of the pelvis and adjacent to the right lobe of the liver of uncertain etiology. In addition to the Ibrance, she is on Femara. PAST MEDICAL HISTORY 1. Morbid obesity. 2. Psoriasis. 3. Transitional cell bladder cancer, status post resection in 2009. 4. Fatty liver disease. 5. Gout. 6. Right cataract removed October 2012 with lens implant. Left cataract removed March 2013 with lens implant. 7. Chronic kidney disease. She was hospitalized with [facility] with a sharp rise in her creatinine, associated with dehydration. She did not need dialysis. In addition to the renal failure from dehydration, she was felt to have acute interstitial nephritis secondary to drug-induced nephritis. The drug noted was ampicillin. She had been recently treated with ampicillin for unstated reasons. Her creatinine was 5.58 on admission and 3.57 on discharge. ALLERGIES 1. INDOMETHACIN. 2. LISINOPRIL. 3. PERCOCET. 4. SHRIMP. She does not like taking statins but will take them. MEDICATIONS: Are supposed to be 1. Folic acid 1 mg daily. 2. Letrozole 2.5 mg daily. 3. Ibrance 125 mg capsule daily, 21 days out of the month. 4. Lantus 66 units daily. 5. Aspirin 81 mg daily. 6. Zofran 4 mg every 4 hours as needed for nausea. 7. Lispro 10 units a.c. t.i.d. 8. Pepcid 20 mg b.i.d. 9. Potassium 20 mEq daily. 10. Acetaminophen 500 mg every 6 hours. 11. Flexeril 10 mg 3 times a day as needed. 12. Amlodipine 5 mg daily. 13. Atorvastatin 40 mg daily. SOCIAL HISTORY: She was born and raised in [place]. Her is from [place]. They currently live in [place]. They have been for 42 years, and they have one son who lives in [place]. She smokes 1-1/2 packs per day since her early 20s and quit in 1995. She has no history of alcohol abuse or recreational substance abuse. CODE STATUS: FULL CODE. FAMILY HISTORY: Mom at 84 of complications of gout, hypertension, skin cancer, macular degeneration, and aging. Dad killed himself in his 40s and had a history of depression. She has a sister who has had skin cancer, another sister who has had uterine cancer. One sister is healthy. Her son has had testicular cancer in the past but is currently healthy. REVIEW OF SYSTEMS GENERAL: She has no recent changes in weight status or fevers. She has had sweats with her medications for cancer. HEAD AND NECK: On head and neck questioning, she denies changes in vision, blurred vision, spots in her vision. No change in hearing. No change in swallowing. No facial deficits. No facial dysesthesias. No allergy symptoms of rhinitis. PULMONARY: She denies coughing, wheezing, chest congestion, recent cold. CARDIAC: She is always dyspneic on exertion. She is overweight and really does not exercise. Again, her shortness of breath gets worse when she is anemic and causes some anginal-like equivalents with the recent evaluation. That is unchanged in this last week or two since she has had her stress test, with no edema or orthopnea. GI: Positive as above. : Occasional urinary incontinence but no urgency, frequency, dysuria or hematuria. JOINTS: Between her arthritis and diffuse metastatic disease, she hurts "all the time." That is unchanged. PSYCHIATRIC: Depression but no suicidal ideation. 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 She has no focal deficits. No gait ataxia. She denies peripheral neuropathy. PHYSICAL EXAMINATION VITAL SIGNS: The patient is seen in the emergency room. She has received Zosyn and Flagyl and IV fluids. Blood pressure had dropped to 99/51 and has now rebounded to 112/56. Pulse was 111 and is now 80. Temperature was 38.6 and now 37.1. She is breathing around 19 breaths a minute and 97% on room air. GENERAL: She is a severely overweight middle-aged female. is at the bedside. She is dying for ice or a glass of water. Lips are quite dry, and she keeps on licking them, but is in no acute respiratory or abdominal distress. HEAD AND NECK: Exam showed her to be wearing glasses. Dry, dry oral mucosa. No facial asymmetry. Voice is slightly hoarse. Pupils are reactive. Sclerae are nonicteric. Neck is supple without goiter or bruits. LUNGS: Clear to auscultation and percussion with slow, shallow, unlabored respiration. Sitting her up is difficult because it induces quite a bit of abdominal pain. Breath sounds are diminished at the bases. CARDIAC: Regular rate and rhythm. Murmur starts at the left lower sternal border, systolic. It gets louder to the right upper sternal border and does radiate to the carotids. No axillary murmur. No right ventricular lift. ABDOMEN: Huge pannus, tender, right lower quadrant. Rebound and guarding but it is not tense or rigid. She does have infrequent bowel sounds that are hypoactive. I really cannot assess for organomegaly because of the large pannus. SKIN: Intertriginous fold, resolving candidiasis. RECTAL: Deferred. The patient has been examined by General Surgery and Dr. Kim. EXTREMITIES: Warm. She does not have any clubbing, cyanosis or edema. There are no chronic venous stasis changes. Calves are soft. Haim's negative. NEUROLOGIC: She is alert and oriented to person, place and time. Can follow 2-step commands. Has spontaneous, natural, normal movement of her upper extremities as she repositions glasses, repositions IV tubing, grabs a blanket and puts it over her. She lifts her legs off the bed for me, but that quickly comes down because of pain in the right lower quadrant. She can plantar and dorsiflex her feet at my request with no loss of strength. She says that she feels light touch on the soles of her feet and the tops of her feet when I examine her. LABORATORY DATA: Sodium is 136, potassium 2.6, BUN 15, creatinine 2.2, GFR 23, random glucose 135, lactic acid 1.7, total bilirubin 1.5. Lipase is 77. White cell count is 2.1, hemoglobin 7.6, hematocrit 21.6, platelets 67,000. 5% bands, 2% myelocytes, 1% promyelocytes. Urinalysis has proteinuria, hematuria, rare squamous cells, a few bacteria. Culture is not indicated. Abdomen, pelvis CT has perianal abscesses with gas. The largest is on the right, measuring 1.9 x 3.8 x 2.3 cm. The perianal abscess on the left is 3.2 x 1.2 x 1.9 cm. Perianal gas pockets are seen more proximally. She has multiple areas of sclerosis on the right iliac bone, left proximal femur, L4 pedicle, and the transverse process of L4 with involvement also of T9 vertebral body. Normal appendix. Possible mild ascending colon acute colitis. A CBC from 05/08/2017 shows her to have a white cell count of 2.5, hemoglobin 7 for which she was transfused, hematocrit 21.3, platelets 136. The CBC on 04/29/2017 of this year shows her to have a white cell count of 1.5, hemoglobin 7.7, platelets 67. With that cell count differential, she had 58% neutrophils. Absolute neutrophil count was 900 with that CBC. ASSESSMENT/PLAN 1. Perianal abscesses that are multiple. This is in the face of the patient who has diabetes and immunocompromised state on current immunotherapy for positive metastatic breast cancer. PLAN: The patient will be admitted acute inpatient status. ATTESTATION: That the patient will be admitted for less than 96 hours. At 96 hours, she will be evaluated for transfer or discharge. Surgical consult with Dr. Danyel Cruz who will be taking the patient to the operating room today. 2. Sepsis. Criteria met with tachycardia, fever, hypotension, but a creatinine that is stable. Source is her perirectal abscess. Antibiotics in the form of Zosyn and Levaquin have been started. Blood cultures have been done and will be reassessed in [address] Cruz may or may not do intraoperative cultures as well. With a rectal abscess, I will assume polymicrobial growth tending toward bowel jada. 3. Preoperative evaluation shows this patient to have aortic stenosis. A recent treadmill test, indicating coronary artery disease that is to be medically managed. Her risks for perioperative and postoperative angina/arrhythmia/myocardial infarction are elevated. However, her own camera assembler said she is to be medically managed and therapy to be optimized. In the preoperative setting, before the OR, I will be transfusing her since her hemoglobin is low and her angina is worse in the face of a low hemoglobin. In the immediate postoperative setting, she will receive her aspirin, statin, ANGELO inhibitor, and/or beta luiz. She does not have a history of recent myocardial infarction. Her ejection fraction is normal. She has no history of arrhythmia. 4. Chronic kidney disease, stage III. I am unclear what her baseline kidney function was before her episode of acute interstitial nephritis and dehydration this last April. In any case, we will be avoiding nephrotoxic agents when at all possible. Hydrate the patient appropriately. 5. Type 2 diabetes mellitus, controlled, with long-term complications and on long-term use of insulin. She usually takes 60-66 units of Lantus at night. She will get 20 tonight since she is fasting and in the postoperative setting of her rectal abscesses. A Glenn procedure is anticipated. She should be able to eat by tomorrow morning or later tomorrow afternoon. Her Lantus will be increased accordingly when she is eating. Sliding scale insulin will also be given. At this time, no fixed dose correctional until I see what her sugars are doing. Check A1c. 6. Chronic pain from stage IV metastatic breast cancer. Amazingly enough, this patient does not do a lot of medications in the outpatient setting. She will be temporarily n.p.o. prior to surgery and in the immediate postoperative period. She will receive Dilaudid 0.5 mg with A STATED ALLERGY TO OXYCODONE. I cannot give her Toradol because of nephrotoxicity. 7. Morbid obesity. She is already a relatively sedentary person because of pain, shortness of breath. In the postoperative period, I will strongly encourage her to get out of bed in a chair, walk in her room as much as possible, and I will follow up with Nursing on that. 8. Anemia, unknown etiology. Currently being worked up by her oncologist. She shares with me that her oncologist suddenly this week. He was getting an elective surgical procedure and on the table. She is understandably upset and with mild grief. She says that he was a tremendous physician and she is anxious at the idea of moving forward with a brand new oncologist to help her get through this process. As stated above in the preoperative evaluation setting, I will transfuse her 2 units. She will continue her anemia workup in the outpatient setting with the appropriate specialty service when she gets out of here. 9. Aortic stenosis. Well compensated left ventricle. I will discuss with Anesthesia to make sure they know her preoperative risk. 10. FULL CODE STATUS. 11. DVT prophylaxis at this time will be SCD and GAURAV smallwood until the postoperative setting where I may or may not transition her to subcu Lovenox. TD: 06/14/2017 22:35
[2017-06-14] MEDS ORDERED: ACETAMINOPHEN 325 MG TABLET PO PRN (23:25)
[2017-06-15] MEDS: POTASSIUM CHLOR 20 MEQ/100 ML 20 MEQ/100 ML BAG IV SCH ×4 (00:16→14:42)
[2017-06-15] MEDS: INSULIN REGULAR HUMAN 100 UNIT/1 ML 10 ML MDV SUBQ SCH ×3 (00:17→14:40)
[2017-06-15] MEDS: SODIUM CHLORIDE FLUSH 0.9% 10 ML SYRINGE IVP PRN ×4 (00:53→15:05)
[2017-06-15] MEDS: SODIUM CHLORIDE FLUSH 0.9% 10 ML SYRINGE IVP SCH ×3 (00:53→17:21)
[2017-06-15 01:17] LABS: ALBUMIN 3.1 g/dL (3.2-5.5); ALBUMIN/GLOBULIN RATIO 0.9 (1.0-2.2); ALKALINE PHOSPHATASE 82 IU/L (42-121); ALT ALANINE AMINOTRANSFERASE 18 IU/L (10-60); AST ASPARTATE AMINOTRANSFERASE 27 IU/L (10-42); BUN - BLOOD UREA NITROGEN 13 mg/dL (6-20); CALCIUM 7.8 mg/dL (8.5-10.3); CARBON DIOXIDE - CO2 15 mmol/L (21-32); CHLORIDE 115 mmol/L (101-111); CREATININE 2.1 mg/dL (0.4-1.0); GFR - MDRD 24 (>89); GLUCOSE 109 mg/dL (70-100); SODIUM 138 mmol/L (135-145); TOTAL PROTEIN 6.7 g/dL (6.7-8.2)
[2017-06-15] MEDS: HYDROmorphone 1 MG/ML SYRINGE IVP PRN ×3 (01:21→12:45)
[2017-06-15 01:26] LABS: VBG PH 7.308 (7.31-7.41)
[2017-06-15] MEDS: metroNIDAZOLE 500 MG/100 ML 500 MG/100 ML BAG IV SCH ×4 (01:57→20:09)
[2017-06-15] MEDS: PIPERACILLIN/TAZOBACTAM 3.375 GM in SODIUM CHLORIDE 0.9% MINIBAG 100 ML IV SCH ×4 (04:20→22:32)
[2017-06-15] MEDS: SODIUM CHLORIDE 0.9% 1,000 ML IV SCH ×2 (04:21→17:19)
[2017-06-15 05:34] LABS: BASOPHILS % (AUTO) 1.8 %; EOSINOPHILS % (AUTO) 0.2 %; HGB - HEMOGLOBIN 8.2 g/dL (12.0-16.0); LYMPHOCYTES # (AUTO) 0.2 10^3/uL (1.5-3.5); LYMPHOCYTES % (AUTO) 13.5 %; MEAN CORPUSCULAR HEMOGLOBIN 32.1 pg (27.0-31.0); MEAN CORPUSCULAR HGB CONC 34.4 g/dL (32.0-36.0); MEAN CORPUSCULAR VOLUME 93.3 fL (81.0-99.0); MEAN PLATELET VOLUME 9.7 fL (7.9-10.8); MONOCYTES # (AUTO) 0.2 10^3/uL (0.0-1.0); MONOCYTES % (AUTO) 14.4 %; NEUTROPHILS # (AUTO) 1.1 10^3/uL (1.5-6.6); NEUTROPHILS % (AUTO) 70.1 %; PLT - PLATELET COUNT 52 10^3/uL (130-450); RED BLOOD COUNT 2.57 10^6/uL (4.20-5.40); RED CELL DISTRIBUTION WIDTH 19.9 % (12.0-15.0)
[2017-06-15 05:50] LABS: WHITE BLOOD COUNT 1.6 x10^3/uL (4.8-10.8)
[2017-06-15 06:09] LABS: ALBUMIN 2.9 g/dL (3.2-5.5); ALBUMIN/GLOBULIN RATIO 0.9 (1.0-2.2); BILIRUBIN,TOTAL 2.7 mg/dL (0.2-1.0); CALCIUM 7.5 mg/dL (8.5-10.3); TOTAL PROTEIN 6.2 g/dL (6.7-8.2)
[2017-06-15] MEDS: PANTOPRAZOLE 40 MG VIAL IVP SCH (06:41)
[2017-06-15 07:02] LABS: PLATELET ESTIMATE, MANUAL DECREASED (<130,000) (NORMAL); PLATELET MORPHOLOGY NORMAL APPEARANCE (NORMAL); RBC MORPHOLOGY (MULTIPLE) 1+ ANISOCYTOSIS (NORMAL)
[2017-06-15] MEDS ORDERED: PROPOFOL 200 MG/20 ML VIAL IVP ONE (07:30)
[2017-06-15] MEDS ORDERED: SUCCINYLCHOLINE 200 MG/10 ML VIAL IVP ONE (07:30)
[2017-06-15] MEDS ORDERED: ONDANSETRON 4 MG/2 ML VIAL IVP ONE (07:30)
[2017-06-15] MEDS ORDERED: FLUMAZENIL 0.1 MG/1 ML 5 ML MDV IVP ONE (07:30)
[2017-06-15] MEDS ORDERED: DEXAMETHASONE 4 MG/ML VIAL IVP ONE (07:30)
[2017-06-15] MEDS ORDERED: fentaNYL 250 MCG/5 ML VIAL IVP ONE (07:30)
[2017-06-15] MEDS ORDERED: MIDAZOLAM 2 MG/2 ML VIAL IVP ONE (07:30)
[2017-06-15] MEDS ORDERED: LIDOCAINE-MPF 2% 5 ML VIAL IM ONE (07:30)
[2017-06-15 07:31] LABS: HB2 TOTAL 8.7 g/dL; HEMOGLOBIN A1C 0.3 g/dL; HEMOGLOBIN A1C % 5.3 % (4.6-6.2)
[2017-06-15] MEDS ORDERED: BUPIVACAINE 0.5%-EPI 1:200000 PF 30 ML VIAL SUBQ ONE ×3 (07:51→08:58)
[2017-06-15] MEDS ORDERED: BUPIVACAINE 0.5%-EPI 1:200000 PF 10 ML VIAL ONE (08:01)
[2017-06-15] MEDS ORDERED: SODIUM CHLORIDE 0.9% 1,000 ML IV ONE ×2 (08:23→09:08)
[2017-06-15] MEDS ORDERED: LACTATED RINGERS 1,000 ML IV ONE (09:43)
[2017-06-15] MEDS ORDERED: ALBUTEROL NEB 2.5 MG/3 ML INH ONE (09:48)
--- NOTE | 2017-06-15 10:20 | PROCEDURE REPORT ---
DATE OF SERVICE: Physician: Danyel Cruz MD DATE OF PROCEDURE: 06/14/2017 PREPROCEDURE DIAGNOSES 1. Central line needed for intravenous access. 2. Metastatic breast cancer. 3. Perirectal abscess. POSTOPERATIVE DIAGNOSES 1. Central line needed for intravenous access. 2. Metastatic breast cancer. 3. Perirectal abscess. PROCEDURE PERFORMED: Placement of right internal jugular central venous line with ultrasound guidance. DESCRIPTION OF PROCEDURE: After informed consent was obtained, the patient's right neck was then prepped and draped in the usual sterile fashion. Ultrasound was then used to identify the vein, internal jugular, on the right side. The skin overlying the vein was then injected with local anesthesia. An 18-gauge needle was then inserted through the skin and into the internal jugular vein under direct vision. There was return of dark nonpulsatile blood. A guidewire was placed through the needle and the needle was withdrawn. A dilator was placed over the guidewire and removed. A triple lumen catheter was then placed over the guidewire, and the guidewire was removed. There was good aspiration of blood through the ports with the ports being flushed easily. The central line was then secured to the skin using 3-0 silk suture. A dry dressing was applied to the insertion site. The patient then had a stat chest x-ray ordered. There were no immediate complications. TD: 06/15/2017 10:20
[2017-06-15] MEDS ORDERED: BENZOCAINE/MENTHOL LOZENGE MM PRN (14:43)
--- NOTE | 2017-06-15 15:20 | PROVIDER PROGRESS NOTE ---
Subjective - Prog Note Date Prog Note Date: 06/15/17 Prog Note Time: 15:17 - Subjective Subjective: I put her in ICU last night bc of her fever, chillls, hypotension and risk of CAD worsening. She received 2 units of PRBC's and electrolyte supplement. K was 3.0 and Hgb was 8.2 this am. Taken to the OR this morning. she has pain in perianal area. mouth is dry. denies cp, sob. I had reduced her lantus to half her usual dose and she's had glucose 90-140 w that on clear liquids. Current Medications - Current Medications Current Medications: Active Medications Acetaminophen (Tylenol) 650 mg PO Q4HR PRN PRN Reason: Pain or Fever > 38C (100.4F) Last Admin: 06/15/17 00:09 Dose: 650 mg Hydromorphone HCl (Dilaudid Inj Syringe) 1 mg IVP Q2H PRN PRN Reason: Pain 8 to 10 Sodium Chloride (Normal Saline 0.9%) 1,000 mls @ 100 mls/hr IV .Q10H [facility] Last Infusion: 06/15/17 15:05 Dose: Infused Metronidazole (Flagyl 500 Mg/100 Ml) 500 mg in 100 mls @ 100 mls/hr IV Q6H [facility] Last Admin: 06/15/17 15:05 Dose: 100 mls/hr Piperacillin Sod/Tazobactam (Sod 3.375 gm/ Sodium Chloride) 100 mls @ 200 mls/ hr IV Q6H [facility] Last Infusion: 06/15/17 12:08 Dose: Infused Insulin Glargine (Lantus Solostar) 20 unit SUBQ QPM [facility] Last Admin: 06/14/17 21:06 Dose: 20 unit Insulin Human Regular (Novolin R) 1 - 5 unit SUBQ Q6HR [facility] PRN Reason: Protocol Last Admin: 06/15/17 14:40 Dose: Not Given Ondansetron HCl (Zofran Inj) 4 mg IVP Q6HR PRN PRN Reason: Nausea / Vomiting Pantoprazole Sodium (Protonix) 40 mg IVP QDAC [facility] Last Admin: 06/15/17 06:41 Dose: 40 mg Sodium Chloride (Normal Saline Flush 0.9%) 10 ml IVP 0100,0900,1700 [facility] Last Admin: 06/15/17 15:10 Dose: Not Given Sodium Chloride (Normal Saline Flush 0.9%) 10 ml IVP PRN PRN PRN Reason: NEEDED PER PROVIDER ORDERS Last Admin: 06/15/17 15:05 Dose: 20 ml Throat Lozenges (Cepacol) 1 lozenge MM Q2HR PRN PRN Reason: Throat pain Last Admin: 06/15/17 15:12 Dose: 1 lozenge Folic Acid 1 mg PO DAILY 10/21/12 Insulin Aspart [Novolog Flexpen] 10 units SUBQ TIDWM 03/20/15 Insulin Glargine [Lantus Solostar] 40 units SUBQ QPM 03/20/15 Letrozole [Femara] 2.5 mg PO DAILY 03/20/15 Palbociclib [Ibrance] 125 mg PO .21DAYSON,7DAYSOFF 03/20/15 Cyclobenzaprine HCl 10 mg PO TID PRN 06/10/17 Famotidine 20 mg PO BID 06/10/17 Potassium Chloride [Klor-Con M20] 20 meq PO BIDWM 06/10/17 amLODIPine [Norvasc] 5 mg PO DAILY 06/10/17 Aspirin [Aspirin EC] 81 mg PO DAILY 06/14/17 Atorvastatin Calcium 40 mg PO QPM 06/14/17 Spironolactone [Spironolactone] 50 mg PO DAILY 06/14/17 Objective - Vital Signs/Intake & Output Reviewed Vital Signs: Yes Vital Signs: Vital Signs Temp Pulse Resp BP Pulse Ox 06/15/17 14:54 85 19 106/59 L 96 06/15/17 14:08 37.1 C 20 106/59 L 98 06/15/17 14:00 88 20 115/57 L 99 06/15/17 13:00 18 115/51 L 97 06/15/17 12:00 88 24 108/66 97 06/15/17 11:32 96 27 H 98 Intake & Output: Intake & Output 06/12/17 06/13/17 06/14/17 06/16/17 23:59 23:59 23:59 00:59 Intake Total 2690.001 1828 Output Total 3130 Balance 2690.001 -1302 - Objective General Appearance: positive: No acute distress, Alert, Moderate distress (from rectal pain), Other (shows me pictures of her gorgeous cut twin grandchildren. Laments loss of her Oncologist again.) Eyes Bilateral: positive: PERRL, EOMI ENT: positive: Dry mucous membranes Neck: positive: No JVD. negative: Stiff neck, Carotid bruit Respiratory: positive: Chest non-tender. negative: Wheezes, Rales, Rhonchi Cardiovascular: positive: Regular rate & rhythm, Systolic murmur. negative: Gallop/S4, Friction rub Abdomen: positive: Non-tender, Nml bowel sounds, No distention Skin: positive: Warm, Dry Extremities: positive: No pedal edema Neurologic/Psychiatric: positive: Oriented x3, CN's nml (2-12), Motor nml - Lab Results Fish Bones: 06/15/17 05:00 06/15/17 05:00 Other Labs: Lab Results x24hrs 06/15/17 06/15/17 06/15/17 Range/Units 12:19 05:00 05:00 WBC 1.6 L* (4.8-10.8) x10^3/uL RBC 2.57 L (4.20-5.40) 10^6/uL Hgb 8.2 L (12.0-16.0) g/dL Hct 24.0 L (37.0-47.0) % MCV 93.3 (81.0-99.0) fL MCH 32.1 H (27.0-31.0) pg MCHC 34.4 (32.0-36.0) g/dL RDW 19.9 H (12.0-15.0) % Plt Count 52 L (130-450) 10^3/uL MPV 9.7 (7.9-10.8) fL Neut # 1.1 L (1.5-6.6) 10^3/uL Lymph # 0.2 L (1.5-3.5) 10^3/uL [place] # 0.2 (0.0-1.0) 10^3/uL Eos # 0.0 (0.0-0.7) 10^3/uL Baso # 0.0 (0.0-0.1) 10^3/uL Absolute Nucleated RBC 0.00 x10^3/uL Nucleated RBC % 0.0 /100WBC Manual Slide Review Indicated Platelet Estimate DECREASED (<130,000) (NORMAL) Platelet Morphology NORMAL APPEARANCE (NORMAL) RBC Morph Micro Appear 1+ ANISOCYTOSIS (NORMAL) VBG pH (7.31-7.41) Ionized Calcium (1.15-1.33) mmol/L Sodium 137 (135-145) mmol/L Potassium 3.0 L (3.5-5.0) mmol/L Chloride 115 H (101-111) mmol/L Carbon Dioxide 15 L (21-32) mmol/L Anion Gap 7.0 (6-13) BUN 14 (6-20) mg/dL Creatinine 2.0 H (0.4-1.0) mg/dL Estimated GFR (MDRD) 25 L (>89) Glucose 94 (70-100) mg/dL POC Whole Bld Glucose 140 H (70 - 100) mg/dL Glycated Hemoglobin (4.6-6.2) % Estim Average Glucose (70-100) Calcium 7.5 L (8.5-10.3) mg/dL Total Bilirubin 2.7 H (0.2-1.0) mg/dL AST 24 (10-42) IU/L ALT 15 (10-60) IU/L Alkaline Phosphatase 74 (42-121) IU/L Total Protein 6.2 L (6.7-8.2) g/dL Albumin 2.9 L (3.2-5.5) g/dL Globulin 3.3 (2.1-4.2) g/dL Albumin/Globulin Ratio 0.9 L (1.0-2.2) 06/15/17 06/15/17 06/15/17 Range/Units 05:00 00:55 00:55 WBC (4.8-10.8) x10^3/uL RBC (4.20-5.40) 10^6/uL Hgb (12.0-16.0) g/dL Hct (37.0-47.0) % MCV (81.0-99.0) fL MCH (27.0-31.0) pg MCHC (32.0-36.0) g/dL RDW (12.0-15.0) % Plt Count (130-450) 10^3/uL MPV (7.9-10.8) fL Neut # (1.5-6.6) 10^3/uL Lymph # (1.5-3.5) 10^3/uL [place] # (0.0-1.0) 10^3/uL Eos # (0.0-0.7) 10^3/uL Baso # (0.0-0.1) 10^3/uL Absolute Nucleated RBC x10^3/uL Nucleated RBC % /100WBC Manual Slide Review Platelet Estimate (NORMAL) Platelet Morphology (NORMAL) RBC Morph Micro Appear (NORMAL) VBG pH 7.308 L (7.31-7.41) Ionized Calcium 1.09 L YES (1.15-1.33) mmol/L Sodium 138 (135-145) mmol/L Potassium 3.4 L (3.5-5.0) mmol/L Chloride 115 H (101-111) mmol/L Carbon Dioxide 15 L (21-32) mmol/L Anion Gap 8.0 (6-13) BUN 13 (6-20) mg/dL Creatinine 2.1 H (0.4-1.0) mg/dL Estimated GFR (MDRD) 24 L (>89) Glucose 109 H (70-100) mg/dL POC Whole Bld Glucose (70 - 100) mg/dL Glycated Hemoglobin 5.3 (4.6-6.2) % Estim Average Glucose 105 H (70-100) Calcium 7.8 L (8.5-10.3) mg/dL Total Bilirubin 2.0 H (0.2-1.0) mg/dL AST 27 (10-42) IU/L ALT 18 (10-60) IU/L Alkaline Phosphatase 82 (42-121) IU/L Total Protein 6.7 (6.7-8.2) g/dL Albumin 3.1 L (3.2-5.5) g/dL Globulin 3.6 (2.1-4.2) g/dL Albumin/Globulin Ratio 0.9 L (1.0-2.2) 06/14/17 06/14/17 06/14/17 Range/Units 20:40 19:50 18:38 WBC (4.8-10.8) x10^3/uL RBC (4.20-5.40) 10^6/uL Hgb (12.0-16.0) g/dL Hct (37.0-47.0) % MCV (81.0-99.0) fL MCH (27.0-31.0) pg MCHC (32.0-36.0) g/dL RDW (12.0-15.0) % Plt Count (130-450) 10^3/uL MPV (7.9-10.8) fL Neut # (1.5-6.6) 10^3/uL Lymph # (1.5-3.5) 10^3/uL [place] # (0.0-1.0) 10^3/uL Eos # (0.0-0.7) 10^3/uL Baso # (0.0-0.1) 10^3/uL Absolute Nucleated RBC x10^3/uL Nucleated RBC % /100WBC Manual Slide Review Platelet Estimate (NORMAL) Platelet Morphology (NORMAL) RBC Morph Micro Appear (NORMAL) VBG pH (7.31-7.41) Ionized Calcium (1.15-1.33) mmol/L Sodium (135-145) mmol/L Potassium 2.7 L (3.5-5.0) mmol/L Chloride (101-111) mmol/L Carbon Dioxide (21-32) mmol/L Anion Gap (6-13) BUN (6-20) mg/dL Creatinine (0.4-1.0) mg/dL Estimated GFR (MDRD) (>89) Glucose (70-100) mg/dL POC Whole Bld Glucose 90 94 (70 - 100) mg/dL Glycated Hemoglobin (4.6-6.2) % Estim Average Glucose (70-100) Calcium (8.5-10.3) mg/dL Total Bilirubin (0.2-1.0) mg/dL AST (10-42) IU/L ALT (10-60) IU/L Alkaline Phosphatase (42-121) IU/L Total Protein (6.7-8.2) g/dL Albumin (3.2-5.5) g/dL Globulin (2.1-4.2) g/dL Albumin/Globulin Ratio (1.0-2.2) Assessment/Plan - Problem List (1) Perianal abscess Impression: multiple. presents as pt who had one in the past, is on immune modulating chemo , is a diabetic and had colonosopy 06/12/17. POD #0. Plan: continue zosyn and flagyl until her cultures come back daily wound care per RN and Dr. Cruz already eating and diet to be advance per Dr. Cruz (2) Postoperative pain Impression: increase dilaudid from 0.5 mg q2 to 1 mg q2 prn. (3) Sepsis Impression: associated with perianal abcess. She was hypotensive, tachycardic, febrile. Resolved with IVF, IV abx, and surgery. Qualifiers: Sepsis type: sepsis due to unspecified organism Qualified Code(s): A41.9 - Sepsis, unspecified organism (4) CKD (chronic kidney disease) stage 4, GFR 15-29 ml/min Impression: stable in spite of hypotension. avoid nephrotoxic drugs. (5) Controlled type 2 diabetes mellitus with complication, with long-term current use of insulin Impression: On half of her usual lantus dose plus SS ac tid. once her glucose comes up, resume usual home dose. (6) CAD (coronary artery disease) Impression: goal is to keep her on maximal medical therapy so make sure statin, ASA, control of BP and glucose. resume usual meds. no far no chest pain. Keep Hgb >8. Qualifiers: Coronary Disease-Associated Artery/Lesion type: [place] artery [place] vs. transplanted heart: [place] heart Associated angina: with stable angina Qualified Code(s): I25.118 - Atherosclerotic heart disease of [place] coronary artery with other forms of angina pectoris (7) Chronic anemia Impression: so far EGD and colonoscopy do not show disease that would cause this. Will investigate bladder tumor hx and tx and where does she stand. Keep Hgb >8 (8) Aortic stenosis Impression: avoid fluid overload. So far no CHF, syncope or chest pain. Qualifiers: Cardiac valve disease etiology: etiology unspecified Qualified Code(s): I35.0 - Nonrheumatic aortic (valve) stenosis
[2017-06-15] MEDS: INSULIN ASPART 300 UNIT/3 ML PEN SUBQ SCH ×2 (17:21→21:03)
[2017-06-15] MEDS: INSULIN GLARGINE 300 UNIT/3 ML PEN SUBQ SCH (21:03)
[2017-06-16] MEDS: SODIUM CHLORIDE FLUSH 0.9% 10 ML SYRINGE IVP SCH ×3 (01:38→17:21)
[2017-06-16] MEDS: SODIUM CHLORIDE 0.9% 1,000 ML IV SCH ×3 (01:39→23:11)
[2017-06-16] MEDS: metroNIDAZOLE 500 MG/100 ML 500 MG/100 ML BAG IV SCH ×4 (01:40→19:50)
--- NOTE | 2017-06-16 02:26 | OPERATIVE REPORT ---
DATE OF SERVICE: 06/14/2017 Physician: Danyel Cruz MD PREOPERATIVE DIAGNOSIS: Horseshoe fistula abscess. POSTOPERATIVE DIAGNOSIS: Horseshoe fistula abscess. NAME OF PROCEDURE: Modified Glenn procedure, which included incision and drainage of posterior deep anal space abscess along with bilateral ischiorectal abscesses and placement of Seton ring through the posterior anal fistula. SURGEON: Danyel Cruz MD ANESTHESIA: General. INDICATIONS FOR PROCEDURE: The patient is a 62-year-old female who has metastatic breast cancer, on immunosuppression chemotherapy. She had a previous posterior anal fissure drained 2 years ago. She now presents after undergoing a colonoscopy 2 days ago having pain in the anal area. CT scan of the pelvis reveals a bilateral anal abscess being present. FINDINGS AT SURGERY: The patient had a horseshoe abscess being present. The deep postanal space was opened up fully with a Seton ring placed through the fistula and around the sphincter muscle. Counter incisions were made at the 3 and 9 o'clock position for the Fl[place] drains placement. This adequately drain the ischiorectal abscesses. PROCEDURE: After informed consent was obtained, patient was taken to the operating room, placed in supine position. General endotracheal anesthesia was administered. The patient was then placed in a lithotomy position. Her anal area was then prepped and draped in the usual sterile fashion. A Hill-Mancilla retractor was then placed in the anal canal and a posterior anal fissure was then identified. A lacrimal duct probe was then placed into the fistula and directed posteriorly into the deep post-anal space. The skin from the anoderm at the 6 o'clock position to the coccyx bone area was then incised. Hemostasis was obtained using electrocautery. The muscles in the [place] was then split and the deep postanal space was then entered directed by the lacrimal duct probe. The space was then fully opened up. The anoderm was then incised around the sphincter muscles and a vessel loop was then placed around the muscles by going through the fistula first. The 2 ends of the vessel loop were then secured together using 3-0 silk sutures with excess length to being excised. I was able to place a finger into both ischiorectal spaces. At the 3 and 9 o'clock position, the skin was then incised down to the ischiorectal space. A clamp was then placed through the midline posterior opening and up through this counterincision. Flushing drain was then grasped and brought through the tract and out through the deep postanal space area. This was done bilaterally. The 2 ends of the Carleen drains were then tied together loosely using 0 silk sutures. The wound was then irrigated fully. Hemostasis was obtained using electrocautery. A dry dressing was then applied. The patient was then awakened, extubated, and taken from the operating room in stable condition. ESTIMATED BLOOD LOSS: Less than 25 mL COMPLICATIONS: None. CONDITION OF THE PATIENT AT THE END OF THE PROCEDURE: Stable. SPECIMENS: Fluid for Gram stain, culture and sensitivity. DRAINS OR PACKS: Flushing drains along with vessel loops were placed. CLASSIFICATION: Wound is dirty. TD: 06/16/2017 02:25 WILL
[2017-06-16] MEDS: PIPERACILLIN/TAZOBACTAM 3.375 GM in SODIUM CHLORIDE 0.9% MINIBAG 100 ML IV SCH ×4 (04:25→22:12)
[2017-06-16 06:09] LABS: BASOPHILS % (AUTO) 0.4 %; EOSINOPHILS % (AUTO) 0.1 %; HGB - HEMOGLOBIN 7.7 g/dL (12.0-16.0); LYMPHOCYTES # (AUTO) 0.2 10^3/uL (1.5-3.5); LYMPHOCYTES % (AUTO) 12.3 %; MEAN CORPUSCULAR HEMOGLOBIN 31.8 pg (27.0-31.0); MEAN CORPUSCULAR HGB CONC 33.6 g/dL (32.0-36.0); MEAN CORPUSCULAR VOLUME 94.6 fL (81.0-99.0); MONOCYTES # (AUTO) 0.1 10^3/uL (0.0-1.0); MONOCYTES % (AUTO) 7.5 %; NEUTROPHILS % (AUTO) 79.7 %; PLT - PLATELET COUNT 47 10^3/uL (130-450); RED BLOOD COUNT 2.43 10^6/uL (4.20-5.40); RED CELL DISTRIBUTION WIDTH 20.6 % (12.0-15.0)
[2017-06-16 06:24] LABS: CALCIUM 7.1 mg/dL (8.5-10.3); CREATININE 1.8 mg/dL (0.4-1.0); MAGNESIUM 1.7 mg/dL (1.7-2.8); PHOSPHORUS 2.2 mg/dL (2.5-4.6)
[2017-06-16 06:26] LABS: WHITE BLOOD COUNT 1.3 x10^3/uL (4.8-10.8)
[2017-06-16] MEDS: PANTOPRAZOLE 40 MG VIAL IVP SCH (06:28)
[2017-06-16] MEDS ORDERED: MAGNESIUM SULFATE 2 GRAM 2 GM/50 ML BAG IV ONE (06:57)
[2017-06-16 07:00] LABS: PLATELET ESTIMATE, MANUAL DECREASED (<130,000) (NORMAL); PLATELET MORPHOLOGY NORMAL APPEARANCE (NORMAL); RBC MORPHOLOGY (MULTIPLE) 1+ BURR CELLS (NORMAL)
[2017-06-16] MEDS: INSULIN ASPART 300 UNIT/3 ML PEN SUBQ SCH ×4 (07:33→21:10)
[2017-06-16] MEDS: POTASSIUM CHLOR 20 MEQ/100 ML 20 MEQ/100 ML BAG IV SCH ×2 (07:57→09:16)
[2017-06-16] MEDS: HYDROmorphone 1 MG/ML SYRINGE IVP PRN ×4 (08:14→19:50)
[2017-06-16] MEDS: SODIUM CHLORIDE FLUSH 0.9% 10 ML SYRINGE IVP PRN ×7 (08:15→17:21)
[2017-06-16] MEDS ORDERED: POTASSIUM CHLORIDE 20 MEQ TABLET PO ONE (08:16)
--- NOTE | 2017-06-16 08:32 | PROVIDER PROGRESS NOTE ---
Subjective - Prog Note Date Prog Note Date: 06/16/17 Prog Note Time: 08:30 - Subjective Subjective: she's in tears this am. No pain meds needed overnight but this am just so so painful in rectum. no comfortable position for her denies cp, sob. Hgb has dropped below 8 Current Medications - Current Medications Current Medications: Active Medications Acetaminophen (Tylenol) 650 mg PO Q4HR PRN PRN Reason: Pain or Fever > 38C (100.4F) Last Admin: 06/15/17 00:09 Dose: 650 mg Hydromorphone HCl (Dilaudid Inj Syringe) 1 mg IVP Q2H PRN PRN Reason: Pain 8 to 10 Last Admin: 06/16/17 08:14 Dose: 1 mg Sodium Chloride (Normal Saline 0.9%) 1,000 mls @ 100 mls/hr IV .Q10H [facility] Last Infusion: 06/16/17 07:51 Dose: 0 mls/hr Metronidazole (Flagyl 500 Mg/100 Ml) 500 mg in 100 mls @ 100 mls/hr IV Q6H [facility] Last Infusion: 06/16/17 02:40 Dose: Infused Piperacillin Sod/Tazobactam (Sod 3.375 gm/ Sodium Chloride) 100 mls @ 200 mls/ hr IV Q6H [facility] Last Infusion: 06/16/17 05:00 Dose: Infused Potassium Chloride (Potassium Chloride) 20 meq in 100 mls @ 100 mls/hr IV Q1H [facility] PRN Reason: Protocol Stop: 06/16/17 08:59 Last Admin: 06/16/17 07:57 Dose: 100 mls/hr Potassium Phosphate 15 mmol/ (Sodium Chloride) 255 mls @ 63 mls/hr IV ONCE ONE PRN Reason: Protocol Stop: 06/16/17 14:02 Insulin Aspart (Novolog) 1 - 5 unit SUBQ 0800,1200,1700,2100 [facility] PRN Reason: Protocol Last Admin: 06/16/17 07:33 Dose: Not Given Insulin Glargine (Lantus Solostar) 20 unit SUBQ QPM [facility] Last Admin: 06/15/17 21:03 Dose: 20 unit Ondansetron HCl (Zofran Inj) 4 mg IVP Q6HR PRN PRN Reason: Nausea / Vomiting Pantoprazole Sodium (Protonix) 40 mg IVP QDAC [facility] Last Admin: 06/16/17 06:28 Dose: 40 mg Sodium Chloride (Normal Saline Flush 0.9%) 10 ml IVP 0100,0900,1700 [facility] Last Admin: 06/16/17 07:57 Dose: 10 ml Sodium Chloride (Normal Saline Flush 0.9%) 10 ml IVP PRN PRN PRN Reason: NEEDED PER PROVIDER ORDERS Last Admin: 06/16/17 08:30 Dose: 30 ml Throat Lozenges (Cepacol) 1 lozenge MM Q2HR PRN PRN Reason: Throat pain Last Admin: 06/15/17 15:12 Dose: 1 lozenge Folic Acid 1 mg PO DAILY 10/21/12 Insulin Aspart [Novolog Flexpen] 10 units SUBQ TIDWM 03/20/15 Insulin Glargine [Lantus Solostar] 40 units SUBQ QPM 03/20/15 Letrozole [Femara] 2.5 mg PO DAILY 03/20/15 Palbociclib [Ibrance] 125 mg PO .21DAYSON,7DAYSOFF 03/20/15 Cyclobenzaprine HCl 10 mg PO TID PRN 06/10/17 Famotidine 20 mg PO BID 06/10/17 Potassium Chloride [Klor-Con M20] 20 meq PO BIDWM 06/10/17 amLODIPine [Norvasc] 5 mg PO DAILY 06/10/17 Aspirin [Aspirin EC] 81 mg PO DAILY 06/14/17 Atorvastatin Calcium 40 mg PO QPM 06/14/17 Spironolactone [Spironolactone] 50 mg PO DAILY 06/14/17 Objective - Vital Signs/Intake & Output Reviewed Vital Signs: Yes Vital Signs: Vital Signs Temp Pulse Resp BP Pulse Ox 06/16/17 08:00 36.8 C 73 21 97/54 L 94 06/16/17 07:00 71 22 99/46 L 94 06/16/17 06:00 73 21 103/54 L 98 06/16/17 05:00 78 23 105/54 L 95 Intake & Output: Intake & Output 06/13/17 06/14/17 06/15/17 06/16/17 22:59 22:59 23:59 23:59 Intake Total 1371.667 Output Total 493 Balance 878.667 - Objective General Appearance: positive: Alert, Moderate distress (from pain), Other ( morbidly obese white female, looks stated age, wearing glasses) Eyes Bilateral: positive: PERRL, EOMI ENT: positive: Pharynx nml, Other (her dry oral mucosa from admission has resolved) Neck: positive: No JVD Respiratory: positive: Chest non-tender, No respiratory distress. negative: Wheezes, Rales, Rhonchi Cardiovascular: positive: Regular rate & rhythm, Systolic murmur (loudes RUSB > carotids). negative: Gallop/S4, Friction rub Abdomen: positive: Non-tender, Nml bowel sounds, No distention. negative: Guarding, Rebound Rectal: positive: Other (not examined by me. pain is here. deferred to surgeon visit today) Skin: positive: Warm, Dry Extremities: positive: Full ROM, No pedal edema Neurologic/Psychiatric: positive: Oriented x3, CN's nml (2-12), Motor nml - Lab Results Fish Bones: 06/16/17 05:05 06/16/17 05:05 Other Labs: Lab Results x24hrs 06/16/17 06/16/17 06/16/17 Range/Units 07:19 05:05 05:05 WBC 1.3 L* (4.8-10.8) x10^3/uL RBC 2.43 L (4.20-5.40) 10^6/uL Hgb 7.7 L (12.0-16.0) g/dL Hct 23.0 L (37.0-47.0) % MCV 94.6 (81.0-99.0) fL MCH 31.8 H (27.0-31.0) pg MCHC 33.6 (32.0-36.0) g/dL RDW 20.6 H (12.0-15.0) % Plt Count 47 L (130-450) 10^3/uL MPV 10.0 (7.9-10.8) fL Neut # 1.0 L (1.5-6.6) 10^3/uL Lymph # 0.2 L (1.5-3.5) 10^3/uL [place] # 0.1 (0.0-1.0) 10^3/uL Eos # 0.0 (0.0-0.7) 10^3/uL Baso # 0.0 (0.0-0.1) 10^3/uL Absolute Nucleated RBC 0.00 x10^3/uL Nucleated RBC % 0.1 /100WBC Manual Slide Review Indicated Platelet Estimate DECREASED (<130,000) (NORMAL) Platelet Morphology NORMAL APPEARANCE (NORMAL) RBC Morph Micro Appear 1+ MARL[place] CELLS (NORMAL) Sodium 138 (135-145) mmol/L Potassium 3.1 L (3.5-5.0) mmol/L Chloride 116 H (101-111) mmol/L Carbon Dioxide 15 L (21-32) mmol/L Anion Gap 7.0 (6-13) BUN 17 (6-20) mg/dL Creatinine 1.8 H (0.4-1.0) mg/dL Estimated GFR (MDRD) 29 L (>89) Glucose 184 H (70-100) mg/dL POC Whole Bld Glucose 139 H (70 - 100) mg/dL Calcium 7.1 L (8.5-10.3) mg/dL Phosphorus 2.2 L (2.5-4.6) mg/dL Magnesium 1.7 (1.7-2.8) mg/dL Albumin (3.2-5.5) g/dL 06/16/17 06/15/17 06/15/17 Range/Units 05:03 20:50 16:53 WBC (4.8-10.8) x10^3/uL RBC (4.20-5.40) 10^6/uL Hgb (12.0-16.0) g/dL Hct (37.0-47.0) % MCV (81.0-99.0) fL MCH (27.0-31.0) pg MCHC (32.0-36.0) g/dL RDW (12.0-15.0) % Plt Count (130-450) 10^3/uL MPV (7.9-10.8) fL Neut # (1.5-6.6) 10^3/uL Lymph # (1.5-3.5) 10^3/uL [place] # (0.0-1.0) 10^3/uL Eos # (0.0-0.7) 10^3/uL Baso # (0.0-0.1) 10^3/uL Absolute Nucleated RBC x10^3/uL Nucleated RBC % /100WBC Manual Slide Review Platelet Estimate (NORMAL) Platelet Morphology (NORMAL) RBC Morph Micro Appear (NORMAL) Sodium (135-145) mmol/L Potassium 3.7 (3.5-5.0) mmol/L Chloride (101-111) mmol/L Carbon Dioxide (21-32) mmol/L Anion Gap (6-13) BUN (6-20) mg/dL Creatinine (0.4-1.0) mg/dL Estimated GFR (MDRD) (>89) Glucose (70-100) mg/dL POC Whole Bld Glucose 215 H (70 - 100) mg/dL Calcium (8.5-10.3) mg/dL Phosphorus (2.5-4.6) mg/dL Magnesium (1.7-2.8) mg/dL Albumin 2.6 L (3.2-5.5) g/dL 06/15/17 06/15/17 Range/Units 16:47 12:19 WBC (4.8-10.8) x10^3/uL RBC (4.20-5.40) 10^6/uL Hgb (12.0-16.0) g/dL Hct (37.0-47.0) % MCV (81.0-99.0) fL MCH (27.0-31.0) pg MCHC (32.0-36.0) g/dL RDW (12.0-15.0) % Plt Count (130-450) 10^3/uL MPV (7.9-10.8) fL Neut # (1.5-6.6) 10^3/uL Lymph # (1.5-3.5) 10^3/uL [place] # (0.0-1.0) 10^3/uL Eos # (0.0-0.7) 10^3/uL Baso # (0.0-0.1) 10^3/uL Absolute Nucleated RBC x10^3/uL Nucleated RBC % /100WBC Manual Slide Review Platelet Estimate (NORMAL) Platelet Morphology (NORMAL) RBC Morph Micro Appear (NORMAL) Sodium (135-145) mmol/L Potassium (3.5-5.0) mmol/L Chloride (101-111) mmol/L Carbon Dioxide (21-32) mmol/L Anion Gap (6-13) BUN (6-20) mg/dL Creatinine (0.4-1.0) mg/dL Estimated GFR (MDRD) (>89) Glucose (70-100) mg/dL POC Whole Bld Glucose 150 H 140 H (70 - 100) mg/dL Calcium (8.5-10.3) mg/dL Phosphorus (2.5-4.6) mg/dL Magnesium (1.7-2.8) mg/dL Albumin (3.2-5.5) g/dL Assessment/Plan - Problem List (1) Perianal abscess Impression: multiple. presents as pt who had one in the past, is on immune modulating chemo , is a diabetic and had colonosopy 3. POD #1. Plan: continue zosyn and flagyl, Day #2, until her cultures come back. So far blood cultures are negative and wound cultures pending. daily wound care per RN and Dr. Cruz already eating and diet to be advance per Dr. Cruz (2) Postoperative pain Impression: already increased dilaudid from 0.5 mg q2 to 1 mg q2 prn on am of 06/15. discussed with her RN, Anca,and right now we won't change her dosing. She didn't get meds all night. Will reassess after this once dose of dilaudid Patient reassured she really is doing well. (3) Sepsis Impression: Resolved associated with perianal abcess. She was hypotensive, tachycardic, febrile. Resolved with IVF, IV abx, and surgery. Qualifiers: Sepsis type: sepsis due to unspecified organism Qualified Code(s): A41.9 - Sepsis, unspecified organism (4) CKD (chronic kidney disease) stage 4, GFR 15-29 ml/min Impression: stable in spite of hypotension. avoid nephrotoxic drugs. (5) Controlled type 2 diabetes mellitus with complication, with long-term current use of insulin Impression: On half of her usual 40 units lantus dose plus SS ac tid. 139 this morning, 215 last night. once her glucose comes up, resume usual home dose. That may be today if her diet is advanced by MD Anthony (6) CAD (coronary artery disease) Impression: goal is to keep her on maximal medical therapy so make sure statin, ASA, control of BP and glucose. resume usual meds. no far no chest pain. Keep Hgb >8. Will transfuse today. Qualifiers: Coronary Disease-Associated Artery/Lesion type: [place] artery [place] vs. 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 Will investigate bladder tumor hx and tx and where does she stand. Keep Hgb >8. Today she dropped below 8 so will transfuse. (8) Aortic stenosis Impression: avoid fluid overload. So far no CHF, syncope or chest pain. Qualifiers: Cardiac valve disease etiology: etiology unspecified Qualified Code(s): I35.0 - Nonrheumatic aortic (valve) stenosis (9) Neutropenia Impression: continues. ANC is still acceptable. Qualifiers: Neutropenia type: secondary to cancer chemotherapy Qualified Code(s): D70.1 - Agranulocytosis secondary to cancer chemotherapy; T45.1X5A - Adverse effect of antineoplastic and immunosuppressive drugs, initial encounter; T45.1X5A - Adverse effect of antineoplastic and immunosuppressive drugs, initial encounter (10) Hypokalemia Impression: supplemented. [employer] Operator wrote for IV and I will give po. recheck in am.
[2017-06-16 09:49] LABS: VBG PH 7.291 (7.31-7.41)
[2017-06-16] MEDS ORDERED: POTASSIUM PHOSPHATE 15 MMOL in SODIUM CHLORIDE 0.9% 250 ML IV ONE (10:00)
[2017-06-16] MEDS ORDERED: CALCIUM GLUCONATE 1,000 MG in SODIUM CHLORIDE 0.9% 50 ML IV ONE (15:00)
--- NOTE | 2017-06-16 20:57 | XRAY Report ---
EXAM: CHEST RADIOGRAPHY EXAM DATE: 06/16/2017 08:21 PM. CLINICAL HISTORY: Hemoptysis. COMPARISON: None. TECHNIQUE: 1 view. FINDINGS: Lungs/Pleura: There is airway thickening without consolidation or focal airspace opacity. The lung vo lumes are normal. Negative for pneumothorax. Mediastinum: Is a right-sided central line with tip at the mid superior vena cava. The heart size is normal. The trachea is midline. There are surgical clips overlying the right breast and axilla, uncha nged. Other: None. IMPRESSION: Airway thickening or inflammation without focal airspace opacity. [facility] Referring Provider Line: [phone] SITE ID: [id number]
--- NOTE | 2017-06-16 20:57 | XRAY Preliminary Report ---
Exam: XR CHEST 1 VIEW X-RAY IMPRESSION: Airway thickening or inflammation without focal airspace opacity. [facility] SITE ID: [id number]
[2017-06-16] MEDS: INSULIN GLARGINE 300 UNIT/3 ML PEN SUBQ SCH (21:13)
[2017-06-17] MEDS: metroNIDAZOLE 500 MG/100 ML 500 MG/100 ML BAG IV SCH ×3 (02:01→14:23)
[2017-06-17] MEDS: SODIUM CHLORIDE FLUSH 0.9% 10 ML SYRINGE IVP SCH ×3 (03:51→16:02)
[2017-06-17] MEDS: PIPERACILLIN/TAZOBACTAM 3.375 GM in SODIUM CHLORIDE 0.9% MINIBAG 100 ML IV SCH ×2 (04:19→10:58)
[2017-06-17] MEDS ORDERED: SODIUM CHLORIDE FLUSH 0.9% 10 ML SYRINGE ONE (05:01)
[2017-06-17 05:19] LABS: BASOPHILS % (AUTO) 0.5 %; EOSINOPHILS % (AUTO) 0.1 %; HGB - HEMOGLOBIN 10.6 g/dL (12.0-16.0); LYMPHOCYTES # (AUTO) 0.4 10^3/uL (1.5-3.5); LYMPHOCYTES % (AUTO) 13.4 %; MEAN CORPUSCULAR HGB CONC 33.5 g/dL (32.0-36.0); MEAN CORPUSCULAR VOLUME 92.6 fL (81.0-99.0); MEAN PLATELET VOLUME 9.7 fL (7.9-10.8); MONOCYTES # (AUTO) 0.2 10^3/uL (0.0-1.0); MONOCYTES % (AUTO) 7.4 %; NEUTROPHILS # (AUTO) 2.6 10^3/uL (1.5-6.6); NEUTROPHILS % (AUTO) 78.6 %; PLT - PLATELET COUNT 65 10^3/uL (130-450); RED BLOOD COUNT 3.43 10^6/uL (4.20-5.40); RED CELL DISTRIBUTION WIDTH 18.2 % (12.0-15.0); WHITE BLOOD COUNT 3.3 x10^3/uL (4.8-10.8)
[2017-06-17] MEDS: SODIUM CHLORIDE FLUSH 0.9% 10 ML SYRINGE IVP PRN ×3 (05:24→12:56)
[2017-06-17 05:35] LABS: CALCIUM 7.5 mg/dL (8.5-10.3); CREATININE 1.7 mg/dL (0.4-1.0); PHOSPHORUS 2.5 mg/dL (2.5-4.6)
[2017-06-17] MEDS: PANTOPRAZOLE 40 MG VIAL IVP SCH (06:53)
[2017-06-17] MEDS: HYDROmorphone 1 MG/ML SYRINGE IVP PRN ×4 (06:53→22:41)
[2017-06-17] MEDS: INSULIN ASPART 300 UNIT/3 ML PEN SUBQ SCH ×4 (08:01→20:59)
[2017-06-17] MEDS: POLYETHYLENE GLYCOL 3350 17 GM PACKET PO SCH (08:01)
[2017-06-17] MEDS: SODIUM CHLORIDE 0.9% 1,000 ML IV SCH ×3 (13:30→23:48)
[2017-06-17] MEDS: levoFLOXacin 250 MG TABLET PO SCH (15:47)
--- NOTE | 2017-06-17 16:37 | PROVIDER PROGRESS NOTE ---
Subjective - Prog Note Date Prog Note Date: 06/17/17 Prog Note Time: 13:00 - Subjective Pt reports feeling: Improved (The patient says she feels better. Her only complaint at this time is of some pain in her her buttocks which is fairly well- controlled with Vicodin. She is eating a little bit better and since her appetite seems to be improving. She is wearing supplemental oxygen at 2 L via nasal cannula for shortness of breath and denies any fever or chills.) Current Medications - Current Medications Current Medications: Acetaminophen, benzocaine, Lomotil, heparin, hydromorphone, insulin, Levaquin, ondansetron, pantoprazole, Polyethylene glycol, potassium chloride, Saccharomyces, sodium chloride Objective - Vital Signs/Intake & Output Reviewed Vital Signs: Yes Vital Signs: Vital Signs Temp Pulse Resp BP Pulse Ox 06/17/17 15:43 36.9 C 80 18 120/57 L 94 Intake & Output: Intake & Output 06/14/17 06/15/17 06/16/17 06/17/17 22:59 23:59 23:59 23:59 Intake Total 4979.667 3541.667 Output Total 1053 750 Balance 3926.667 2791.667 - Objective General Appearance: positive: No acute distress, Alert Eyes Bilateral: positive: Normal inspection, PERRL, EOMI, No lid inflammation, Conjunctivae nml, No scleral icterus ENT: positive: ENT inspection nml, Pharynx nml, No signs of dehydration Neck: positive: Nml inspection, Thyroid nml, No JVD, Trachea midline. negative : Thyromegaly Respiratory: positive: Chest non-tender, No respiratory distress, Breath sounds nml. negative: Wheezes, Rales, Rhonchi Cardiovascular: positive: Regular rate & rhythm, No murmur, No gallop, Systolic murmur (2/6) Abdomen: positive: Non-tender, No organomegaly, Nml bowel sounds, No distention. negative: Guarding, Rebound Rectal: positive: Tenderness, Other (Patient is status post multiple abscess drainage to the buttocks.) Back: positive: Nml inspection. negative: CVA tenderness (R), CVA tenderness (L ) Skin: positive: Color nml, No rash, Warm, Dry. negative: Cyanosis Extremities: positive: Non-tender, Full ROM, Nml appearance. negative: Calf tenderness, Joint swelling Neurologic/Psychiatric: positive: Oriented x3, CN's nml (2-12), Motor nml, Sensation nml, Mood/affect nml - Lab Results Fish Bones: 06/17/17 05:00 06/17/17 05:00 Other Labs: Lab Results x24hrs 06/17/17 06/17/17 06/17/17 Range/Units 11:51 07:51 05:00 WBC (4.8-10.8) x10^3/uL RBC (4.20-5.40) 10^6/uL Hgb (12.0-16.0) g/dL Hct (37.0-47.0) % MCV (81.0-99.0) fL MCH (27.0-31.0) pg MCHC (32.0-36.0) g/dL RDW (12.0-15.0) % Plt Count (130-450) 10^3/uL MPV (7.9-10.8) fL Neut # (1.5-6.6) 10^3/uL Lymph # (1.5-3.5) 10^3/uL [place] # (0.0-1.0) 10^3/uL Eos # (0.0-0.7) 10^3/uL Baso # (0.0-0.1) 10^3/uL Absolute Nucleated RBC x10^3/uL Nucleated RBC % /100WBC Sodium 141 (135-145) mmol/L Potassium 3.1 L (3.5-5.0) mmol/L Chloride 118 H (101-111) mmol/L Carbon Dioxide 14 L (21-32) mmol/L Anion Gap 9.0 (6-13) BUN 15 (6-20) mg/dL Creatinine 1.7 H (0.4-1.0) mg/dL Estimated GFR (MDRD) 30 L (>89) Glucose 96 (70-100) mg/dL POC Whole Bld Glucose 95 78 (70 - 100) mg/dL Calcium 7.5 L (8.5-10.3) mg/dL Phosphorus 2.5 (2.5-4.6) mg/dL Magnesium 2.0 (1.7-2.8) mg/dL 06/17/17 06/16/17 06/16/17 Range/Units 05:00 21:06 16:40 WBC 3.3 L (4.8-10.8) x10^3/uL RBC 3.43 L (4.20-5.40) 10^6/uL Hgb 10.6 L (12.0-16.0) g/dL Hct 31.8 L (37.0-47.0) % MCV 92.6 (81.0-99.0) fL MCH 31.0 (27.0-31.0) pg MCHC 33.5 (32.0-36.0) g/dL RDW 18.2 H (12.0-15.0) % Plt Count 65 L (130-450) 10^3/uL MPV 9.7 (7.9-10.8) fL Neut # 2.6 (1.5-6.6) 10^3/uL Lymph # 0.4 L (1.5-3.5) 10^3/uL [place] # 0.2 (0.0-1.0) 10^3/uL Eos # 0.0 (0.0-0.7) 10^3/uL Baso # 0.0 (0.0-0.1) 10^3/uL Absolute Nucleated RBC 0.00 x10^3/uL Nucleated RBC % 0.1 /100WBC Sodium (135-145) mmol/L Potassium (3.5-5.0) mmol/L Chloride (101-111) mmol/L Carbon Dioxide (21-32) mmol/L Anion Gap (6-13) BUN (6-20) mg/dL Creatinine (0.4-1.0) mg/dL Estimated GFR (MDRD) (>89) Glucose (70-100) mg/dL POC Whole Bld Glucose 138 H 157 H (70 - 100) mg/dL Calcium (8.5-10.3) mg/dL Phosphorus (2.5-4.6) mg/dL Magnesium (1.7-2.8) mg/dL - Diagnostic Imaging Diagnostic Imaging Results: positive: Final report reviewed Diagnostic Imaging Comments: EXAM: CHEST RADIOGRAPHY EXAM DATE: 06/16/2017 08:21 PM. CLINICAL HISTORY: Hemoptysis. COMPARISON: None. TECHNIQUE: 1 view. FINDINGS: Lungs/Pleura: There is airway thickening without consolidation or focal airspace opacity. The lung volumes are normal. Negative for pneumothorax. Mediastinum: Is a right-sided central line with tip at the mid superior vena cava. The heart size is normal. The trachea is midline. There are surgical clips overlying the right breast and axilla, unchanged. Other: None. IMPRESSION: Airway thickening or inflammation without focal airspace opacity. Assessment/Plan - Problem List (1) Perianal abscess Impression: Patient has been receiving IV antibiotics and this may have been causing the diarrhea she has been experiencing. Additionally, we do have results back from her microbiology culture of her perianal abscess. I will stop her IV antibiotics and start her on Levaquin which the Klebsiella Pneumoniae is exquisitely sensitive to. I will also start her on Florastor for probiotic and as needed Lomotil for her severe diarrhea which she had this morning.The plan at this time is for the patient to be discharged home in a day or 2 where her will take care of her. She and her have discussed the case thoroughly and have refused any home health offers to this point. (2) CAD (coronary artery disease) Impression: Patient is comfortable and is not complained of shortness of breath or chest pain. Her hemoglobin was 7.7 yesterday and she was transfused 2 units which brought her up to 10.6 today.Suspect patient has anemia associated with chronic disease as she has had breast cancer for 10 years which recently came back.She also developed bladder cancer secondary to 1 of her chemotherapy drugs. (3) CKD (chronic kidney disease) stage 4, GFR 15-29 ml/min Impression: Patient's creatinine today is 1.7 her BUN is 15. Continue present care. (4) Chronic anemia Impression: Likely secondary to chronic disease, the patient was transfused yesterday and her hemoglobin today is 10.6. (5) Controlled type 2 diabetes mellitus with complication, with long-term current use of insulin Impression: The patient's blood glucose has been extremely well controlled today with readings of 78, 95, and 94. Continue present care. The patient will receive a regular diet tonight. (6) Postoperative pain Impression: Well-managed at this time. Continue present care. (7) Sepsis Impression: Resolved with antibiotics, surgery, and IV fluids. (8) Aortic stenosis Impression: Grade 2/6 holosystolic murmur noted on exam. The patient is not complaining of any chest pain nor has she had any syncopal episodes. (9) Hypokalemia Impression: Still low despite multiple supplements yesterday, will continue with supplements today. (10) Neutropenia Impression: The patient's white blood cell count has come up to 3.3 today from 1.3 yesterday. Her neutropenia secondary to chemotherapy. Qualifiers: Neutropenia type: secondary to cancer chemotherapy Qualified Code(s): D70.1 - Agranulocytosis secondary to cancer chemotherapy; T45.1X5A - Adverse effect of antineoplastic and immunosuppressive drugs, initial encounter; T45.1X5A - Adverse effect of antineoplastic and immunosuppressive drugs, initial encounter
[2017-06-17] MEDS: SACCHAROMYCES BOULARDII 250 MG CAPSULE PO SCH (17:44)
[2017-06-17] MEDS: INSULIN GLARGINE 300 UNIT/3 ML PEN SUBQ SCH (21:01)
[2017-06-17] MEDS: DIPHENOX/ATROPINE 2.5/0.025 MG TABLET PO PRN (21:41)
[2017-06-18] MEDS: SODIUM CHLORIDE FLUSH 0.9% 10 ML SYRINGE IVP PRN (04:34)
[2017-06-18 05:28] LABS: BASOPHILS % (AUTO) 0.9 %; EOSINOPHILS % (AUTO) 0.7 %; HGB - HEMOGLOBIN 9.9 g/dL (12.0-16.0); LYMPHOCYTES # (AUTO) 0.3 10^3/uL (1.5-3.5); MEAN CORPUSCULAR HEMOGLOBIN 31.2 pg (27.0-31.0); MEAN CORPUSCULAR HGB CONC 33.7 g/dL (32.0-36.0); MEAN CORPUSCULAR VOLUME 92.6 fL (81.0-99.0); MONOCYTES # (AUTO) 0.2 10^3/uL (0.0-1.0); MONOCYTES % (AUTO) 9.3 %; NEUTROPHILS # (AUTO) 1.3 10^3/uL (1.5-6.6); NEUTROPHILS % (AUTO) 72.1 %; PLT - PLATELET COUNT 51 10^3/uL (130-450); RED BLOOD COUNT 3.17 10^6/uL (4.20-5.40); RED CELL DISTRIBUTION WIDTH 18.4 % (12.0-15.0)
[2017-06-18 05:42] LABS: CALCIUM 7.8 mg/dL (8.5-10.3); CREATININE 1.5 mg/dL (0.4-1.0); MAGNESIUM 1.8 mg/dL (1.7-2.8); PHOSPHORUS 2.1 mg/dL (2.5-4.6)
[2017-06-18 05:44] LABS: WHITE BLOOD COUNT 1.8 x10^3/uL (4.8-10.8)
[2017-06-18] MEDS: PANTOPRAZOLE 40 MG VIAL IVP SCH (06:43)
[2017-06-18 07:01] LABS: PLATELET ESTIMATE, MANUAL DECREASED (<130,000) (NORMAL); PLATELET MORPHOLOGY NORMAL APPEARANCE (NORMAL); RBC MORPHOLOGY (MULTIPLE) NORMAL APPEARANCE (NORMAL)
[2017-06-18] MEDS ORDERED: POTASSIUM CHLORIDE 20 MEQ TABLET PO SCH (08:00)
[2017-06-18] MEDS: INSULIN ASPART 300 UNIT/3 ML PEN SUBQ SCH ×4 (08:14→21:23)
[2017-06-18] MEDS: SACCHAROMYCES BOULARDII 250 MG CAPSULE PO SCH ×2 (08:15→18:02)
[2017-06-18] MEDS: POTASSIUM CHLOR 10 MEQ/100 ML 10 MEQ/100 ML BAG IV SCH ×3 (08:15→10:51)
[2017-06-18] MEDS: POLYETHYLENE GLYCOL 3350 17 GM PACKET PO SCH (08:17)
[2017-06-18] MEDS: SODIUM CHLORIDE FLUSH 0.9% 10 ML SYRINGE IVP SCH ×3 (08:18→18:11)
[2017-06-18] MEDS: NEUTRA-PHOS 250 MG TABLET PO SCH ×3 (08:59→18:11)
[2017-06-18] MEDS: POTASSIUM CHLORIDE 20 MEQ TABLET PO SCH ×3 (09:30→18:11)
[2017-06-18] MEDS: HYDROmorphone 1 MG/ML SYRINGE IVP PRN (12:55)
[2017-06-18 14:34] LABS: CALCIUM 8.1 mg/dL (8.5-10.3); CREATININE 1.5 mg/dL (0.4-1.0)
[2017-06-18] MEDS: levoFLOXacin 250 MG TABLET PO SCH (16:59)
--- NOTE | 2017-06-18 17:23 | PROVIDER PROGRESS NOTE ---
Subjective - Prog Note Date Prog Note Date: 06/18/17 Prog Note Time: 16:15 - Subjective Pt reports feeling: Improved (The patient's wounds to her buttocks are improving daily and the pain associated with them has improved significantly. She denies any new problems, shortness of breath, fever or chills.) Subjective: The patient feels better and has been's spending more time sitting on her buttocks because her pain is improved significantly. Her appetite is improved and her diarrhea is better controlled, with no significant episodes today. She denies any fever or chills. Current Medications - Current Medications Current Medications: Acetaminophen, benzocaine, Lomotil, heparin, hydromorphone, insulin, Levaquin, ondansetron, pantoprazole, Polyethylene glycol, potassium chloride, Saccharomyces, sodium chloride Objective - Vital Signs/Intake & Output Reviewed Vital Signs: Yes Vital Signs: Vital Signs Temp Pulse Resp BP Pulse Ox 06/18/17 14:47 37.1 C 88 20 134/53 H 96 Intake & Output: Intake & Output 06/15/17 06/16/17 06/17/17 06/18/17 23:59 23:59 23:59 23:59 Intake Total 4979.667 4740.000 2060.000 Output Total 1053 800 1 Balance 3926.667 3940.000 2059.000 - Objective General Appearance: positive: No acute distress, Alert Eyes Bilateral: positive: Normal inspection, PERRL, EOMI, No lid inflammation, Conjunctivae nml, No scleral icterus ENT: positive: ENT inspection nml, Pharynx nml, No signs of dehydration Neck: positive: Nml inspection, Thyroid nml, No JVD, Trachea midline. negative : Thyromegaly Respiratory: positive: Chest non-tender, No respiratory distress, Breath sounds nml. negative: Wheezes, Rales, Rhonchi Cardiovascular: positive: Regular rate & rhythm, No murmur, No gallop Abdomen: positive: Non-tender, No organomegaly, Nml bowel sounds, No distention. negative: Tenderness Back: positive: Nml inspection. negative: CVA tenderness (R), CVA tenderness (L ) Skin: positive: Color nml, No rash, Warm, Dry. negative: Cyanosis Extremities: positive: Non-tender, Full ROM, Nml appearance, No pedal edema Neurologic/Psychiatric: positive: Oriented x3, CN's nml (2-12), Motor nml, Sensation nml, Mood/affect nml - Lab Results Fish Bones: 06/18/17 04:40 06/18/17 14:00 Other Labs: Lab Results x24hrs 06/18/17 06/18/17 06/18/17 Range/Units 16:35 14:00 11:13 WBC (4.8-10.8) x10^3/uL RBC (4.20-5.40) 10^6/uL Hgb (12.0-16.0) g/dL Hct (37.0-47.0) % MCV (81.0-99.0) fL MCH (27.0-31.0) pg MCHC (32.0-36.0) g/dL RDW (12.0-15.0) % Plt Count (130-450) 10^3/uL MPV (7.9-10.8) fL Neut # (1.5-6.6) 10^3/uL Lymph # (1.5-3.5) 10^3/uL [place] # (0.0-1.0) 10^3/uL Eos # (0.0-0.7) 10^3/uL Baso # (0.0-0.1) 10^3/uL Absolute Nucleated RBC x10^3/uL Nucleated RBC % /100WBC Manual Slide Review Platelet Estimate (NORMAL) Platelet Morphology (NORMAL) RBC Morph Micro Appear (NORMAL) Sodium 141 (135-145) mmol/L Potassium 3.4 L (3.5-5.0) mmol/L Chloride 118 H (101-111) mmol/L Carbon Dioxide 18 L (21-32) mmol/L Anion Gap 5.0 L (6-13) BUN 17 (6-20) mg/dL Creatinine 1.5 H (0.4-1.0) mg/dL Estimated GFR (MDRD) 35 L (>89) Glucose 114 H (70-100) mg/dL POC Whole Bld Glucose 94 99 (70 - 100) mg/dL Calcium 8.1 L (8.5-10.3) mg/dL Phosphorus (2.5-4.6) mg/dL Magnesium (1.7-2.8) mg/dL 06/18/17 06/18/17 06/18/17 Range/Units 07:57 04:40 04:40 WBC 1.8 L* (4.8-10.8) x10^3/uL RBC 3.17 L (4.20-5.40) 10^6/uL Hgb 9.9 L (12.0-16.0) g/dL Hct 29.3 L (37.0-47.0) % MCV 92.6 (81.0-99.0) fL MCH 31.2 H (27.0-31.0) pg MCHC 33.7 (32.0-36.0) g/dL RDW 18.4 H (12.0-15.0) % Plt Count 51 L (130-450) 10^3/uL MPV 9.0 (7.9-10.8) fL Neut # 1.3 L (1.5-6.6) 10^3/uL Lymph # 0.3 L (1.5-3.5) 10^3/uL [place] # 0.2 (0.0-1.0) 10^3/uL Eos # 0.0 (0.0-0.7) 10^3/uL Baso # 0.0 (0.0-0.1) 10^3/uL Absolute Nucleated RBC 0.00 x10^3/uL Nucleated RBC % 0.0 /100WBC Manual Slide Review Indicated Platelet Estimate DECREASED (<130,000) (NORMAL) Platelet Morphology NORMAL APPEARANCE (NORMAL) RBC Morph Micro Appear NORMAL APPEARANCE (NORMAL) Sodium 141 (135-145) mmol/L Potassium 2.7 L (3.5-5.0) mmol/L Chloride 116 H (101-111) mmol/L Carbon Dioxide 17 L (21-32) mmol/L Anion Gap 8.0 (6-13) BUN 16 (6-20) mg/dL Creatinine 1.5 H (0.4-1.0) mg/dL Estimated GFR (MDRD) 35 L (>89) Glucose 84 (70-100) mg/dL POC Whole Bld Glucose 79 (70 - 100) mg/dL Calcium 7.8 L (8.5-10.3) mg/dL Phosphorus 2.1 L (2.5-4.6) mg/dL Magnesium 1.8 (1.7-2.8) mg/dL 06/17/17 Range/Units 20:57 WBC (4.8-10.8) x10^3/uL RBC (4.20-5.40) 10^6/uL Hgb (12.0-16.0) g/dL Hct (37.0-47.0) % MCV (81.0-99.0) fL MCH (27.0-31.0) pg MCHC (32.0-36.0) g/dL RDW (12.0-15.0) % Plt Count (130-450) 10^3/uL MPV (7.9-10.8) fL Neut # (1.5-6.6) 10^3/uL Lymph # (1.5-3.5) 10^3/uL [place] # (0.0-1.0) 10^3/uL Eos # (0.0-0.7) 10^3/uL Baso # (0.0-0.1) 10^3/uL Absolute Nucleated RBC x10^3/uL Nucleated RBC % /100WBC Manual Slide Review Platelet Estimate (NORMAL) Platelet Morphology (NORMAL) RBC Morph Micro Appear (NORMAL) Sodium (135-145) mmol/L Potassium (3.5-5.0) mmol/L Chloride (101-111) mmol/L Carbon Dioxide (21-32) mmol/L Anion Gap (6-13) BUN (6-20) mg/dL Creatinine (0.4-1.0) mg/dL Estimated GFR (MDRD) (>89) Glucose (70-100) mg/dL POC Whole Bld Glucose 109 H (70 - 100) mg/dL Calcium (8.5-10.3) mg/dL Phosphorus (2.5-4.6) mg/dL Magnesium (1.7-2.8) mg/dL Assessment/Plan - Problem List (1) Perianal abscess Impression: The patient's wounds appear to be healing and the drains have little return in them. She has been switched over to oral antibiotics and was given Florastor for probiotic and Lomotil [id number] and her diarrhea has been controlled today. Her white blood cell count remains artificially low secondary to chemotherapy induced leukopenia, however she has not been running any fevers and has not experienced any chills. We will continue the current care. (2) CAD (coronary artery disease) Impression: Patient is comfortable and is not complained of shortness of breath or chest pain. Her hemoglobin today is 10.1. Suspect patient has anemia associated with chronic disease as she has had breast cancer for 10 years which recently came back.She also developed bladder cancer secondary to 1 of her chemotherapy drugs. (3) CKD (chronic kidney disease) stage 4, GFR 15-29 ml/min Impression: The patient's kidney function remains stable with a creatinine of 1.5. She was admitted with a creatinine of 2.2 and reportedly has had creatinine levels as high as 5.8. Continue present care. (4) Chronic anemia Impression: Likely secondary to chronic disease, patient was transfused yesterday and Her hemoglobin today is 10.1 (5) Controlled type 2 diabetes mellitus with complication, with long-term current use of insulin Impression: Extremely well controlled. Continue present care. (6) Postoperative pain Impression: Well-managed, continue hydromorphone as needed. (7) Sepsis Impression: Resolved. (8) Hypokalemia Impression: I am unsure of the etiology, however the patient's hypokalemia has been very difficult to manage. I have given her multiple doses of oral and IV supplements and her potassium this afternoon has come up to 3.4. 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 Continue present care. (9) Neutropenia Impression: Chemotherapy-induced. We will continue to monitor. Qualifiers: Neutropenia type: secondary to cancer chemotherapy Qualified Code(s): D70.1 - Agranulocytosis secondary to cancer chemotherapy; T45.1X5A - Adverse effect of antineoplastic and immunosuppressive drugs, initial encounter; T45.1X5A - Adverse effect of antineoplastic and immunosuppressive drugs, initial encounter
[2017-06-18] MEDS: INSULIN GLARGINE 300 UNIT/3 ML PEN SUBQ SCH (21:24)
[2017-06-18] MEDS: DIPHENOX/ATROPINE 2.5/0.025 MG TABLET PO PRN (21:25)
[2017-06-19] MEDS: SODIUM CHLORIDE FLUSH 0.9% 10 ML SYRINGE IVP SCH ×3 (04:18→17:57)
[2017-06-19 04:46] LABS: CALCIUM 8.4 mg/dL (8.5-10.3); CREATININE 1.3 mg/dL (0.4-1.0); MAGNESIUM 1.6 mg/dL (1.7-2.8)
[2017-06-19 04:51] LABS: BASOPHILS % (AUTO) 1.1 %; EOSINOPHILS % (AUTO) 0.9 %; HGB - HEMOGLOBIN 10.6 g/dL (12.0-16.0); LYMPHOCYTES % (AUTO) 15.7 %; MEAN CORPUSCULAR HEMOGLOBIN 30.9 pg (27.0-31.0); MEAN CORPUSCULAR HGB CONC 33.4 g/dL (32.0-36.0); MEAN CORPUSCULAR VOLUME 92.6 fL (81.0-99.0); MONOCYTES % (AUTO) 9.1 %; NEUTROPHILS % (AUTO) 73.2 %; PLT - PLATELET COUNT 56 10^3/uL (130-450); RED BLOOD COUNT 3.44 10^6/uL (4.20-5.40); RED CELL DISTRIBUTION WIDTH 19.7 % (12.0-15.0); WHITE BLOOD COUNT 2.2 x10^3/uL (4.8-10.8)
[2017-06-19 04:56] LABS: ABNORMAL LYMPHS % (MANUAL) 0 %
[2017-06-19 05:24] LABS: BAND NEUTROPHILS % (MANUAL) 2 %; DIFFERENTIAL COMMENT MANUAL DIFFERENTIAL; EOSINOPHILS # (MANUAL) 0.1 10^3/uL (0-0.7); LYMPHOCYTES # (MANUAL) 0.5 10^3/uL (1.5-3.5); LYMPHOCYTES % (MANUAL) 21 %; MONOCYTES # (MANUAL) 0.2 10^3/uL (0.0-1.0); NEUTROPHILS # (MANUAL) 1.5 10^3/uL (1.5-6.6); NEUTROPHILS % (MANUAL) 65 %; PLATELET ESTIMATE, MANUAL DECREASED (<130,000) (NORMAL); RBC MORPHOLOGY (MULTIPLE) NORMAL APPEARANCE (NORMAL)
[2017-06-19] MEDS: PANTOPRAZOLE 40 MG VIAL IVP SCH (07:08)
[2017-06-19] MEDS ORDERED: MAGNESIUM SULFATE 2 GRAM 2 GM/50 ML BAG IV ONE (07:34)
[2017-06-19] MEDS: POLYETHYLENE GLYCOL 3350 17 GM PACKET PO SCH (08:15)
[2017-06-19] MEDS: INSULIN ASPART 300 UNIT/3 ML PEN SUBQ SCH ×4 (08:36→21:31)
[2017-06-19] MEDS: SACCHAROMYCES BOULARDII 250 MG CAPSULE PO SCH ×2 (08:55→17:56)
[2017-06-19] MEDS: NEUTRA-PHOS 250 MG TABLET PO SCH ×3 (09:19→17:56)
[2017-06-19] MEDS: POTASSIUM CHLORIDE 20 MEQ TABLET PO SCH ×3 (09:19→17:56)
--- NOTE | 2017-06-19 12:34 | PROVIDER PROGRESS NOTE ---
Subjective - General Admit Date: 06/14/17 Procedure Performed: Glenn procedure for horseshoe abscess - Review of Systems Gastrointestinal: positive: Diarrhea, Other (pain at surgical site in anal area. ) Objective - Patient Data Vital Signs: Vital Signs x48h Pulse Resp BP Pulse Ox 06/19/17 07:43 101 H 20 131/63 H 96 Weight: Weight 06/17/17 06/18/17 06/19/17 23:59 23:59 23:59 Weight (kg) 93.372 kg 95.481 kg 94.6 kg Intake & Output: Intake and Output Totals x24h 06/17/17 06/18/17 06/19/17 23:59 23:59 23:59 Intake Total 4740.000 2060.000 1000 Output Total 800 306 10 Balance 3940.000 1754.000 990 - Lab Results Lab Results: 06/19/17 04:15 06/19/17 04:15 Other Lab Results: Lab Results x24hrs 06/19/17 06/19/17 06/19/17 Range/Units 11:29 07:54 04:15 WBC (4.8-10.8) x10^3/uL RBC (4.20-5.40) 10^6/uL Hgb (12.0-16.0) g/dL Hct (37.0-47.0) % MCV (81.0-99.0) fL MCH (27.0-31.0) pg MCHC (32.0-36.0) g/dL RDW (12.0-15.0) % Plt Count (130-450) 10^3/uL MPV (7.9-10.8) fL Neut # Lymph # [place] # Eos # Baso # Absolute Nucleated RBC Total Counted Band Neuts % (Manual) (0 - 10) % Abnorm Lymph % (Manual) % Nucleated RBC % Neutrophils # (Manual) (1.5-6.6) 10^3/uL Lymphocytes # (Manual) (1.5-3.5) 10^3/uL Monocytes # (Manual) (0.0-1.0) 10^3/uL Eosinophils # (Manual) (0-0.7) 10^3/uL Basophils # (Manual) (0-0.1) 10^3/uL Differential Comment Platelet Estimate (NORMAL) RBC Morph Micro Appear (NORMAL) Sodium 140 (135-145) mmol/L Potassium 3.3 L (3.5-5.0) mmol/L Chloride 114 H (101-111) mmol/L Carbon Dioxide 17 L (21-32) mmol/L Anion Gap 9.0 (6-13) BUN 17 (6-20) mg/dL Creatinine 1.3 H (0.4-1.0) mg/dL Estimated GFR (MDRD) 42 L (>89) Glucose 91 (70-100) mg/dL POC Whole Bld Glucose 103 H 85 (70 - 100) mg/dL Calcium 8.4 L (8.5-10.3) mg/dL Magnesium 1.6 L (1.7-2.8) mg/dL 06/19/17 06/18/17 06/18/17 Range/Units 04:15 21:22 16:35 WBC 2.2 L (4.8-10.8) x10^3/uL RBC 3.44 L (4.20-5.40) 10^6/uL Hgb 10.6 L (12.0-16.0) g/dL Hct 31.8 L (37.0-47.0) % MCV 92.6 (81.0-99.0) fL MCH 30.9 (27.0-31.0) pg MCHC 33.4 (32.0-36.0) g/dL RDW 19.7 H (12.0-15.0) % Plt Count 56 L (130-450) 10^3/uL MPV 9.0 (7.9-10.8) fL Neut # Not Reportable Lymph # Not Reportable [place] # Not Reportable Eos # Not Reportable Baso # Not Reportable Absolute Nucleated RBC Not Reportable Total Counted 100 Band Neuts % (Manual) 2 (0 - 10) % Abnorm Lymph % (Manual) 0 % Nucleated RBC % Not Reportable Neutrophils # (Manual) 1.5 (1.5-6.6) 10^3/uL Lymphocytes # (Manual) 0.5 L (1.5-3.5) 10^3/uL Monocytes # (Manual) 0.2 (0.0-1.0) 10^3/uL Eosinophils # (Manual) 0.1 (0-0.7) 10^3/uL Basophils # (Manual) 0.0 (0-0.1) 10^3/uL Differential Comment MANUAL DIFFERENTIAL Platelet Estimate DECREASED (<130,000) (NORMAL) RBC Morph Micro Appear NORMAL APPEARANCE (NORMAL) Sodium (135-145) mmol/L Potassium (3.5-5.0) mmol/L Chloride (101-111) mmol/L Carbon Dioxide (21-32) mmol/L Anion Gap (6-13) BUN (6-20) mg/dL Creatinine (0.4-1.0) mg/dL Estimated GFR (MDRD) (>89) Glucose (70-100) mg/dL POC Whole Bld Glucose 96 94 (70 - 100) mg/dL Calcium (8.5-10.3) mg/dL Magnesium (1.7-2.8) mg/dL / Range/Units 14:00 WBC (4.8-10.8) x10^3/uL RBC (4.20-5.40) 10^6/uL Hgb (12.0-16.0) g/dL Hct (37.0-47.0) % MCV (81.0-99.0) fL MCH (27.0-31.0) pg MCHC (32.0-36.0) g/dL RDW (12.0-15.0) % Plt Count (130-450) 10^3/uL MPV (7.9-10.8) fL Neut # Lymph # [place] # Eos # Baso # Absolute Nucleated RBC Total Counted Band Neuts % (Manual) (0 - 10) % Abnorm Lymph % (Manual) % Nucleated RBC % Neutrophils # (Manual) (1.5-6.6) 10^3/uL Lymphocytes # (Manual) (1.5-3.5) 10^3/uL Monocytes # (Manual) (0.0-1.0) 10^3/uL Eosinophils # (Manual) (0-0.7) 10^3/uL Basophils # (Manual) (0-0.1) 10^3/uL Differential Comment Platelet Estimate (NORMAL) RBC Morph Micro Appear (NORMAL) Sodium 141 (135-145) mmol/L Potassium 3.4 L (3.5-5.0) mmol/L Chloride 118 H (101-111) mmol/L Carbon Dioxide 18 L (21-32) mmol/L Anion Gap 5.0 L (6-13) BUN 17 (6-20) mg/dL Creatinine 1.5 H (0.4-1.0) mg/dL Estimated GFR (MDRD) 35 L (>89) Glucose 114 H (70-100) mg/dL POC Whole Bld Glucose (70 - 100) mg/dL Calcium 8.1 L (8.5-10.3) mg/dL Magnesium (1.7-2.8) mg/dL - Current Medications Current Medications: Current Medications Generic Name Dose Route Start Last Admin Trade Name Freq PRN Reason Stop Dose Admin Acetaminophen 650 mg 06/14/17 23:25 06/15/17 00:09 Tylenol PO 650 mg Q4HR PRN Administration Pain or Fever > 38C (100.4F) Diphenoxylate HCl/Atropine 1 tab 06/17/17 15:33 06/18/17 21:25 Lomotil PO 1 tab QID PRN Administration Diarrhea Heparin Sodium (Beef Lung) 30 - 50 unit 06/17/17 12:36 06/19/17 04:21 IVP 50 unit Q8H PRN Administration Central Line Protocol (<24 hr) Hydromorphone HCl 1 mg 06/15/17 15:14 06/18/17 12:55 Dilaudid Inj Syringe IVP 1 mg Q2H PRN Administration Pain 8 to 10 Insulin Aspart 1 - 5 unit 06/15/17 17:00 06/19/17 12:03 Novolog SUBQ Not Given 0800,1200,1700,2100 [facility] Protocol Insulin Glargine 20 unit 06/14/17 21:00 06/18/17 21:24 Lantus Solostar SUBQ 20 unit QPM MAGGY Administration Levofloxacin 500 mg 06/17/17 16:00 06/18/17 16:59 Levaquin PO 500 mg Q24H MAGGY Administration Pantoprazole Sodium 40 mg 06/14/17 17:00 06/19/17 07:08 Protonix IVP 40 mg QDAC MAGGY Administration Polyethylene Glycol 17 gm 06/17/17 09:00 06/19/17 08:15 Miralax PO Not Given DAILY MAGGY Potassium Chloride 40 meq 06/18/17 09:00 06/19/17 09:19 K-Dur PO 40 meq TIDWM MAGGY Administration Saccharomyces Boulardii 250 mg 06/17/17 17:00 06/19/17 08:55 Florastor PO 250 mg BIDWM MAGGY Administration Sodium Chloride 10 ml 06/15/17 01:00 06/19/17 08:55 Normal Saline Flush 0.9% IVP 10 ml 0100,0900,1700 MAGGY Administration Sodium Chloride 10 ml 06/14/17 15:48 06/18/17 04:34 Normal Saline Flush 0.9% IVP 20 ml PRN PRN Administration NEEDED PER PROVIDER ORDERS Sodium Phosphate 250 mg 06/18/17 09:00 06/19/17 09:19 K-Phos Neutral PO 250 mg TIDWM MAGGY Administration Throat Lozenges 1 lozenge 06/15/17 14:43 06/15/17 15:12 Cepacol MM 1 lozenge Q2HR PRN Administration Throat pain - Physical Exam Wound/Incisions: positive: Healing well Impression/Plan - Problem List Problem List: 1) s/p Glenn procedure for horseshoe abscess. Drains in place. Patient needs at least 10 days of oral antibiotics. Continue sitz baths tid and with bowel movements. If d/c home today, f/u with me in clinic 07/03 with nurse visit in office next week. 2) Diarrhea. Cdiff is negative. Continue Probiotic. Imodium as needed for diarrhea.
--- NOTE | 2017-06-19 15:54 | PROVIDER PROGRESS NOTE ---
Subjective - Prog Note Date Prog Note Date: 06/19/17 Prog Note Time: 15:00 - Subjective Pt reports feeling: Improved (Patient says she slept fairly well last night. She denies any new problems. Her pain is still present but is fairly well- managed. She denies any shortness of breath fever or chills.) Current Medications - Current Medications Current Medications: Acetaminophen, benzocaine, Lomotil, heparin, hydromorphone, insulin, Levaquin, ondansetron, pantoprazole, Polyethylene glycol, potassium chloride, Saccharomyces, sodium chloride Objective - Vital Signs/Intake & Output Reviewed Vital Signs: Yes Intake & Output: Intake & Output 06/16/17 06/17/17 06/18/17 06/19/17 23:59 23:59 23:59 23:59 Intake Total 4979.667 4740.000 2060.000 1350 Output Total 1053 800 306 15 Balance 3926.667 3940.000 7595.448 5535 - Objective General Appearance: positive: No acute distress, Alert Eyes Bilateral: positive: Normal inspection, PERRL, EOMI, No lid inflammation, Conjunctivae nml, No scleral icterus ENT: positive: ENT inspection nml, Pharynx nml, No signs of dehydration Neck: positive: Nml inspection, Thyroid nml, No JVD, Trachea midline. negative : Thyromegaly Respiratory: positive: Chest non-tender, No respiratory distress, Breath sounds nml. negative: Wheezes, Rales, Rhonchi Cardiovascular: positive: Regular rate & rhythm, No murmur, No gallop Abdomen: positive: Non-tender, No organomegaly, Nml bowel sounds, No distention. negative: Guarding, Rebound Back: positive: Nml inspection. negative: CVA tenderness (R), CVA tenderness (L ) Skin: positive: Color nml, No rash, Warm, Dry. negative: Cyanosis Extremities: positive: Non-tender, Full ROM, Nml appearance Neurologic/Psychiatric: positive: Oriented x3, CN's nml (2-12), Motor nml, Sensation nml, Mood/affect nml - Lab Results Fish Bones: 06/19/17 04:15 06/19/17 04:15 Other Labs: Lab Results x24hrs 03/06/19/17 06/19/17 Range/Units 11:29 07:54 04:15 WBC (4.8-10.8) x10^3/uL RBC (4.20-5.40) 10^6/uL Hgb (12.0-16.0) g/dL Hct (37.0-47.0) % MCV (81.0-99.0) fL MCH (27.0-31.0) pg MCHC (32.0-36.0) g/dL RDW (12.0-15.0) % Plt Count (130-450) 10^3/uL MPV (7.9-10.8) fL Neut # Lymph # [place] # Eos # Baso # Absolute Nucleated RBC Total Counted Band Neuts % (Manual) (0 - 10) % Abnorm Lymph % (Manual) % Nucleated RBC % Neutrophils # (Manual) (1.5-6.6) 10^3/uL Lymphocytes # (Manual) (1.5-3.5) 10^3/uL Monocytes # (Manual) (0.0-1.0) 10^3/uL Eosinophils # (Manual) (0-0.7) 10^3/uL Basophils # (Manual) (0-0.1) 10^3/uL Differential Comment Platelet Estimate (NORMAL) RBC Morph Micro Appear (NORMAL) Sodium 140 (135-145) mmol/L Potassium 3.3 L (3.5-5.0) mmol/L Chloride 114 H (101-111) mmol/L Carbon Dioxide 17 L (21-32) mmol/L Anion Gap 9.0 (6-13) BUN 17 (6-20) mg/dL Creatinine 1.3 H (0.4-1.0) mg/dL Estimated GFR (MDRD) 42 L (>89) Glucose 91 (70-100) mg/dL POC Whole Bld Glucose 103 H 85 (70 - 100) mg/dL Calcium 8.4 L (8.5-10.3) mg/dL Magnesium 1.6 L (1.7-2.8) mg/dL 06/19/17 06/18/17 06/18/17 Range/Units 04:15 21:22 16:35 WBC 2.2 L (4.8-10.8) x10^3/uL RBC 3.44 L (4.20-5.40) 10^6/uL Hgb 10.6 L (12.0-16.0) g/dL Hct 31.8 L (37.0-47.0) % MCV 92.6 (81.0-99.0) fL MCH 30.9 (27.0-31.0) pg MCHC 33.4 (32.0-36.0) g/dL RDW 19.7 H (12.0-15.0) % Plt Count 56 L (130-450) 10^3/uL MPV 9.0 (7.9-10.8) fL Neut # Not Reportable Lymph # Not Reportable [place] # Not Reportable Eos # Not Reportable Baso # Not Reportable Absolute Nucleated RBC Not Reportable Total Counted 100 Band Neuts % (Manual) 2 (0 - 10) % Abnorm Lymph % (Manual) 0 % Nucleated RBC % Not Reportable Neutrophils # (Manual) 1.5 (1.5-6.6) 10^3/uL Lymphocytes # (Manual) 0.5 L (1.5-3.5) 10^3/uL Monocytes # (Manual) 0.2 (0.0-1.0) 10^3/uL Eosinophils # (Manual) 0.1 (0-0.7) 10^3/uL Basophils # (Manual) 0.0 (0-0.1) 10^3/uL Differential Comment MANUAL DIFFERENTIAL Platelet Estimate DECREASED (<130,000) (NORMAL) RBC Morph Micro Appear NORMAL APPEARANCE (NORMAL) Sodium (135-145) mmol/L Potassium (3.5-5.0) mmol/L Chloride (101-111) mmol/L Carbon Dioxide (21-32) mmol/L Anion Gap (6-13) BUN (6-20) mg/dL Creatinine (0.4-1.0) mg/dL Estimated GFR (MDRD) (>89) Glucose (70-100) mg/dL POC Whole Bld Glucose 96 94 (70 - 100) mg/dL Calcium (8.5-10.3) mg/dL Magnesium (1.7-2.8) mg/dL Assessment/Plan - Problem List (1) Perianal abscess Impression: The patient's wounds appear to be healing and the drains have little return in them. She has been switched over to oral antibiotics and was given Florastor for probiotic and Lomotil [id number] and her diarrhea has been controlled today. Her white blood cell count remains artificially low secondary to chemotherapy induced leukopenia, however she has not been running any fevers and has not experienced any chills. Dr. Cruz has signed off of the case and is okay with the patient being transferred home. I have discussed the case at length with the patient and her and the plan is still for her to go home with him being the primary caregiver. They both have steadfastly and adamantly refused home health care. We will continue the current inpatient care with anticipated discharge tomorrow. (2) CAD (coronary artery disease) Impression: Patient is comfortable and is not complained of shortness of breath or chest pain. Her hemoglobin today is 10.6. Suspect patient has anemia associated with chronic disease as she has had breast cancer for 10 years which recently came back.She also developed bladder cancer secondary to 1 of her chemotherapy drugs. (3) CKD (chronic kidney disease) stage 4, GFR 15-29 ml/min Impression: The patient's kidney function remains stable with a creatinine of 1.3. She was admitted with a creatinine of 2.2 and reportedly has had creatinine levels as high as 5.8. Continue present care. (4) Chronic anemia Impression: Likely secondary to chronic disease, patient was transfused several days ago and her hemoglobin is climbing, today is 10.6 (5) Controlled type 2 diabetes mellitus with complication, with long-term current use of insulin Impression: Extremely well controlled. Continue present care. (6) Postoperative pain Impression: Controlled with hydromorphone, continue present care (7) Hypokalemia Impression: I am unsure of the etiology, however the patient's hypokalemia has been very difficult to manage. I had given her multiple doses of oral and IV supplements and her potassium yesterday afternoon had come up to 3.4, down to 3.3 today. The patient's food service assistant was reportedly very concerned with this at their last appointment as well. I will add spirinolactone, otherwise continue present care. (8) Neutropenia Impression: Chemotherapy-induced. WBC count 2.2 today. Continue present care. Qualifiers: Neutropenia type: secondary to cancer chemotherapy Qualified Code(s): D70.1 - Agranulocytosis secondary to cancer chemotherapy; T45.1X5A - Adverse effect of antineoplastic and immunosuppressive drugs, initial encounter; T45.1X5A - Adverse effect of antineoplastic and immunosuppressive drugs, initial encounter (9) Sepsis Impression: Resolved.
[2017-06-19] MEDS ORDERED: SPIRONOLACTONE 25 MG TABLET PO SCH (16:00)
[2017-06-19] MEDS: levoFLOXacin 250 MG TABLET PO SCH (17:56)
[2017-06-19] MEDS: INSULIN GLARGINE 300 UNIT/3 ML PEN SUBQ SCH (21:31)
--- NOTE | 2017-06-19 22:51 | PROVIDER PROGRESS NOTE ---
Subjective - General Admit Date: 06/14/17 Procedure Performed: Glenn procedure for horseshoe abscess - Review of Systems Wound/Incisions: positive: Other (open wounds with drains in place) Gastrointestinal: positive: Diarrhea, Other (pain at surgical site in anal area. ) Objective - Patient Data Vital Signs: Vital Signs x48h Temp Pulse Resp BP Pulse Ox 06/19/17 21:27 36.6 C 96 24 147/65 H 95 06/19/17 18:44 36.9 C 94 20 141/59 H 95 Weight: Weight 06/17/17 06/18/17 06/19/17 23:59 23:59 23:59 Weight (kg) 93.372 kg 95.481 kg 94.6 kg Intake & Output: Intake and Output Totals x24h 06/17/17 06/18/17 06/19/17 23:59 23:59 23:59 Intake Total 4740.000 2060.000 1737 Output Total 800 306 15 Balance 3940.000 8008.921 7482 - Lab Results Lab Results: 06/19/17 04:15 06/19/17 04:15 Other Lab Results: Lab Results x24hrs 06/19/17 06/19/17 06/19/17 Range/Units 21:14 16:27 11:29 WBC (4.8-10.8) x10^3/uL RBC (4.20-5.40) 10^6/uL Hgb (12.0-16.0) g/dL Hct (37.0-47.0) % MCV (81.0-99.0) fL MCH (27.0-31.0) pg MCHC (32.0-36.0) g/dL RDW (12.0-15.0) % Plt Count (130-450) 10^3/uL MPV (7.9-10.8) fL Neut # Lymph # [place] # Eos # Baso # Absolute Nucleated RBC Total Counted Band Neuts % (Manual) (0 - 10) % Abnorm Lymph % (Manual) % Nucleated RBC % Neutrophils # (Manual) (1.5-6.6) 10^3/uL Lymphocytes # (Manual) (1.5-3.5) 10^3/uL Monocytes # (Manual) (0.0-1.0) 10^3/uL Eosinophils # (Manual) (0-0.7) 10^3/uL Basophils # (Manual) (0-0.1) 10^3/uL Differential Comment Platelet Estimate (NORMAL) RBC Morph Micro Appear (NORMAL) Sodium (135-145) mmol/L Potassium (3.5-5.0) mmol/L Chloride (101-111) mmol/L Carbon Dioxide (21-32) mmol/L Anion Gap (6-13) BUN (6-20) mg/dL Creatinine (0.4-1.0) mg/dL Estimated GFR (MDRD) (>89) Glucose (70-100) mg/dL POC Whole Bld Glucose 89 91 103 H (70 - 100) mg/dL Calcium (8.5-10.3) mg/dL Magnesium (1.7-2.8) mg/dL 06/19/17 06/19/17 06/19/17 Range/Units 07:54 04:15 04:15 WBC 2.2 L (4.8-10.8) x10^3/uL RBC 3.44 L (4.20-5.40) 10^6/uL Hgb 10.6 L (12.0-16.0) g/dL Hct 31.8 L (37.0-47.0) % MCV 92.6 (81.0-99.0) fL MCH 30.9 (27.0-31.0) pg MCHC 33.4 (32.0-36.0) g/dL RDW 19.7 H (12.0-15.0) % Plt Count 56 L (130-450) 10^3/uL MPV 9.0 (7.9-10.8) fL Neut # Not Reportable Lymph # Not Reportable [place] # Not Reportable Eos # Not Reportable Baso # Not Reportable Absolute Nucleated RBC Not Reportable Total Counted 100 Band Neuts % (Manual) 2 (0 - 10) % Abnorm Lymph % (Manual) 0 % Nucleated RBC % Not Reportable Neutrophils # (Manual) 1.5 (1.5-6.6) 10^3/uL Lymphocytes # (Manual) 0.5 L (1.5-3.5) 10^3/uL Monocytes # (Manual) 0.2 (0.0-1.0) 10^3/uL Eosinophils # (Manual) 0.1 (0-0.7) 10^3/uL Basophils # (Manual) 0.0 (0-0.1) 10^3/uL Differential Comment MANUAL DIFFERENTIAL Platelet Estimate DECREASED (<130,000) (NORMAL) RBC Morph Micro Appear NORMAL APPEARANCE (NORMAL) Sodium 140 (135-145) mmol/L Potassium 3.3 L (3.5-5.0) mmol/L Chloride 114 H (101-111) mmol/L Carbon Dioxide 17 L (21-32) mmol/L Anion Gap 9.0 (6-13) BUN 17 (6-20) mg/dL Creatinine 1.3 H (0.4-1.0) mg/dL Estimated GFR (MDRD) 42 L (>89) Glucose 91 (70-100) mg/dL POC Whole Bld Glucose 85 (70 - 100) mg/dL Calcium 8.4 L (8.5-10.3) mg/dL Magnesium 1.6 L (1.7-2.8) mg/dL - Current Medications Current Medications: Current Medications Generic Name Dose Route Start Last Admin Trade Name Freq PRN Reason Stop Dose Admin Acetaminophen 650 mg 06/14/17 23:25 06/15/17 00:09 Tylenol PO 650 mg Q4HR PRN Administration Pain or Fever > 38C (100.4F) Diphenoxylate HCl/Atropine 1 tab 06/17/17 15:33 06/18/17 21:25 Lomotil PO 1 tab QID PRN Administration Diarrhea Heparin Sodium (Beef Lung) 30 - 50 unit 06/17/17 12:36 06/19/17 04:21 IVP 50 unit Q8H PRN Administration Central Line Protocol (<24 hr) Hydromorphone HCl 1 mg 06/15/17 15:14 06/18/17 12:55 Dilaudid Inj Syringe IVP 1 mg Q2H PRN Administration Pain 8 to 10 Insulin Aspart 1 - 5 unit 06/15/17 17:00 06/19/17 21:31 Novolog SUBQ Not Given 0800,1200,1700,2100 MAGGY Protocol Insulin Glargine 20 unit 06/14/17 21:00 06/19/17 21:31 Lantus Solostar SUBQ 10 unit QPM MAGGY Administration Levofloxacin 500 mg 06/17/17 16:00 06/19/17 17:56 Levaquin PO 500 mg Q24H MAGGY Administration Pantoprazole Sodium 40 mg 06/14/17 17:00 06/19/17 07:08 Protonix IVP 40 mg QDAC MAGGY Administration Polyethylene Glycol 17 gm 06/17/17 09:00 06/19/17 08:15 Miralax PO Not Given DAILY MGAGY Potassium Chloride 40 meq 06/18/17 09:00 06/19/17 17:56 K-Dur PO 40 meq TIDWM MAGGY Administration Saccharomyces Boulardii 250 mg 06/17/17 17:00 06/19/17 17:56 Florastor PO 250 mg BIDWM MAGGY Administration Sodium Chloride 10 ml 06/15/17 01:00 06/19/17 17:57 Normal Saline Flush 0.9% IVP 10 ml 0100,0900,1700 MAGGY Administration Sodium Chloride 10 ml 06/14/17 15:48 06/18/17 04:34 Normal Saline Flush 0.9% IVP 20 ml PRN PRN Administration NEEDED PER PROVIDER ORDERS Sodium Phosphate 250 mg 06/18/17 09:00 06/19/17 17:56 K-Phos Neutral PO 250 mg TIDWM MAGGY Administration Throat Lozenges 1 lozenge 06/15/17 14:43 06/15/17 15:12 Cepacol MM 1 lozenge Q2HR PRN Administration Throat pain - Physical Exam Rectal: positive: Other (micah and vessel loops in place. No purulent drainage present) Impression/Plan - Problem List Problem List: 1) s/p Glenn procedure for horseshoe abscess POD#1. Start sitz baths. Continue IV antibiotics.
--- NOTE | 2017-06-19 22:58 | PROVIDER PROGRESS NOTE ---
Subjective - General Admit Date: 06/14/17 Procedure Performed: Glenn procedure for horseshoe abscess - Review of Systems Wound/Incisions: positive: Other (open wounds with drains in place) Gastrointestinal: positive: Diarrhea, Other (pain at surgical site in anal area. ) Objective - Patient Data Vital Signs: Vital Signs x48h Temp Pulse Resp BP Pulse Ox 06/19/17 21:27 36.6 C 96 24 147/65 H 95 06/19/17 18:44 36.9 C 94 20 141/59 H 95 Weight: Weight 06/17/17 06/18/17 06/19/17 23:59 23:59 23:59 Weight (kg) 93.372 kg 95.481 kg 94.6 kg Intake & Output: Intake and Output Totals x24h 06/17/17 06/18/17 06/19/17 23:59 23:59 23:59 Intake Total 4740.000 2060.000 1737 Output Total 800 306 15 Balance 3940.000 4560.539 6104 - Lab Results Lab Results: 06/19/17 04:15 06/19/17 04:15 Other Lab Results: Lab Results x24hrs 06/19/17 06/19/17 06/19/17 Range/Units 21:14 16:27 11:29 WBC (4.8-10.8) x10^3/uL RBC (4.20-5.40) 10^6/uL Hgb (12.0-16.0) g/dL Hct (37.0-47.0) % MCV (81.0-99.0) fL MCH (27.0-31.0) pg MCHC (32.0-36.0) g/dL RDW (12.0-15.0) % Plt Count (130-450) 10^3/uL MPV (7.9-10.8) fL Neut # Lymph # [place] # Eos # Baso # Absolute Nucleated RBC Total Counted Band Neuts % (Manual) (0 - 10) % Abnorm Lymph % (Manual) % Nucleated RBC % Neutrophils # (Manual) (1.5-6.6) 10^3/uL Lymphocytes # (Manual) (1.5-3.5) 10^3/uL Monocytes # (Manual) (0.0-1.0) 10^3/uL Eosinophils # (Manual) (0-0.7) 10^3/uL Basophils # (Manual) (0-0.1) 10^3/uL Differential Comment Platelet Estimate (NORMAL) RBC Morph Micro Appear (NORMAL) Sodium (135-145) mmol/L Potassium (3.5-5.0) mmol/L Chloride (101-111) mmol/L Carbon Dioxide (21-32) mmol/L Anion Gap (6-13) BUN (6-20) mg/dL Creatinine (0.4-1.0) mg/dL Estimated GFR (MDRD) (>89) Glucose (70-100) mg/dL POC Whole Bld Glucose 89 91 103 H (70 - 100) mg/dL Calcium (8.5-10.3) mg/dL Magnesium (1.7-2.8) mg/dL 06/19/17 06/19/17 06/19/17 Range/Units 07:54 04:15 04:15 WBC 2.2 L (4.8-10.8) x10^3/uL RBC 3.44 L (4.20-5.40) 10^6/uL Hgb 10.6 L (12.0-16.0) g/dL Hct 31.8 L (37.0-47.0) % MCV 92.6 (81.0-99.0) fL MCH 30.9 (27.0-31.0) pg MCHC 33.4 (32.0-36.0) g/dL RDW 19.7 H (12.0-15.0) % Plt Count 56 L (130-450) 10^3/uL MPV 9.0 (7.9-10.8) fL Neut # Not Reportable Lymph # Not Reportable [place] # Not Reportable Eos # Not Reportable Baso # Not Reportable Absolute Nucleated RBC Not Reportable Total Counted 100 Band Neuts % (Manual) 2 (0 - 10) % Abnorm Lymph % (Manual) 0 % Nucleated RBC % Not Reportable Neutrophils # (Manual) 1.5 (1.5-6.6) 10^3/uL Lymphocytes # (Manual) 0.5 L (1.5-3.5) 10^3/uL Monocytes # (Manual) 0.2 (0.0-1.0) 10^3/uL Eosinophils # (Manual) 0.1 (0-0.7) 10^3/uL Basophils # (Manual) 0.0 (0-0.1) 10^3/uL Differential Comment MANUAL DIFFERENTIAL Platelet Estimate DECREASED (<130,000) (NORMAL) RBC Morph Micro Appear NORMAL APPEARANCE (NORMAL) Sodium 140 (135-145) mmol/L Potassium 3.3 L (3.5-5.0) mmol/L Chloride 114 H (101-111) mmol/L Carbon Dioxide 17 L (21-32) mmol/L Anion Gap 9.0 (6-13) BUN 17 (6-20) mg/dL Creatinine 1.3 H (0.4-1.0) mg/dL Estimated GFR (MDRD) 42 L (>89) Glucose 91 (70-100) mg/dL POC Whole Bld Glucose 85 (70 - 100) mg/dL Calcium 8.4 L (8.5-10.3) mg/dL Magnesium 1.6 L (1.7-2.8) mg/dL - Current Medications Current Medications: Current Medications Generic Name Dose Route Start Last Admin Trade Name Freq PRN Reason Stop Dose Admin Acetaminophen 650 mg 06/14/17 23:25 06/15/17 00:09 Tylenol PO 650 mg Q4HR PRN Administration Pain or Fever > 38C (100.4F) Diphenoxylate HCl/Atropine 1 tab 06/17/17 15:33 06/18/17 21:25 Lomotil PO 1 tab QID PRN Administration Diarrhea Heparin Sodium (Beef Lung) 30 - 50 unit 06/17/17 12:36 06/19/17 04:21 IVP 50 unit Q8H PRN Administration Central Line Protocol (<24 hr) Hydromorphone HCl 1 mg 06/15/17 15:14 06/18/17 12:55 Dilaudid Inj Syringe IVP 1 mg Q2H PRN Administration Pain 8 to 10 Insulin Aspart 1 - 5 unit 06/15/17 17:00 06/19/17 21:31 Novolog SUBQ Not Given 0800,1200,1700,2100 MAGGY Protocol Insulin Glargine 20 unit 06/14/17 21:00 06/19/17 21:31 Lantus Solostar SUBQ 10 unit QPM MAGGY Administration Levofloxacin 500 mg 06/17/17 16:00 06/19/17 17:56 Levaquin PO 500 mg Q24H MAGGY Administration Pantoprazole Sodium 40 mg 06/14/17 17:00 06/19/17 07:08 Protonix IVP 40 mg QDAC MAGGY Administration Polyethylene Glycol 17 gm 06/17/17 09:00 06/19/17 08:15 Miralax PO Not Given DAILY MAGGY Potassium Chloride 40 meq 06/18/17 09:00 06/19/17 17:56 K-Dur PO 40 meq TIDWM MAGGY Administration Saccharomyces Boulardii 250 mg 06/17/17 17:00 06/19/17 17:56 Florastor PO 250 mg BIDWM MAGGY Administration Sodium Chloride 10 ml 06/15/17 01:00 06/19/17 17:57 Normal Saline Flush 0.9% IVP 10 ml 0100,0900,1700 MAGGY Administration Sodium Chloride 10 ml 06/14/17 15:48 06/18/17 04:34 Normal Saline Flush 0.9% IVP 20 ml PRN PRN Administration NEEDED PER PROVIDER ORDERS Sodium Phosphate 250 mg 06/18/17 09:00 06/19/17 17:56 K-Phos Neutral PO 250 mg TIDWM MAGGY Administration Throat Lozenges 1 lozenge 06/15/17 14:43 06/15/17 15:12 Cepacol MM 1 lozenge Q2HR PRN Administration Throat pain - Physical Exam Rectal: positive: Other (Carleen drains in place along with seton.) Impression/Plan - Problem List Problem List: s/p Glenn procedure for horseshoe abscess POD#2. Wounds clean. Continue sitz baths, pain control, and IV antibiotics.
--- NOTE | 2017-06-19 23:21 | PROVIDER PROGRESS NOTE ---
Subjective - General Admit Date: 06/14/17 Procedure Performed: Glenn procedure for horseshoe abscess - Review of Systems Wound/Incisions: positive: Other (open wounds with drains in place) Gastrointestinal: positive: Diarrhea, Other (pain at surgical site in anal area. ) Objective - Patient Data Vital Signs: Vital Signs x48h Temp Pulse Resp BP Pulse Ox 06/19/17 21:27 36.6 C 96 24 147/65 H 95 06/19/17 18:44 36.9 C 94 20 141/59 H 95 Weight: Weight 06/17/17 06/18/17 06/19/17 23:59 23:59 23:59 Weight (kg) 93.372 kg 95.481 kg 94.6 kg Intake & Output: Intake and Output Totals x24h 06/17/17 06/18/17 06/19/17 23:59 23:59 23:59 Intake Total 4740.000 2060.000 1737 Output Total 800 306 15 Balance 3940.000 0798.864 9788 - Lab Results Lab Results: 06/19/17 04:15 06/19/17 04:15 Other Lab Results: Lab Results x24hrs 06/19/17 06/19/17 06/19/17 Range/Units 21:14 16:27 11:29 WBC (4.8-10.8) x10^3/uL RBC (4.20-5.40) 10^6/uL Hgb (12.0-16.0) g/dL Hct (37.0-47.0) % MCV (81.0-99.0) fL MCH (27.0-31.0) pg MCHC (32.0-36.0) g/dL RDW (12.0-15.0) % Plt Count (130-450) 10^3/uL MPV (7.9-10.8) fL Neut # Lymph # [place] # Eos # Baso # Absolute Nucleated RBC Total Counted Band Neuts % (Manual) (0 - 10) % Abnorm Lymph % (Manual) % Nucleated RBC % Neutrophils # (Manual) (1.5-6.6) 10^3/uL Lymphocytes # (Manual) (1.5-3.5) 10^3/uL Monocytes # (Manual) (0.0-1.0) 10^3/uL Eosinophils # (Manual) (0-0.7) 10^3/uL Basophils # (Manual) (0-0.1) 10^3/uL Differential Comment Platelet Estimate (NORMAL) RBC Morph Micro Appear (NORMAL) Sodium (135-145) mmol/L Potassium (3.5-5.0) mmol/L Chloride (101-111) mmol/L Carbon Dioxide (21-32) mmol/L Anion Gap (6-13) BUN (6-20) mg/dL Creatinine (0.4-1.0) mg/dL Estimated GFR (MDRD) (>89) Glucose (70-100) mg/dL POC Whole Bld Glucose 89 91 103 H (70 - 100) mg/dL Calcium (8.5-10.3) mg/dL Magnesium (1.7-2.8) mg/dL 06/19/17 06/19/17 06/19/17 Range/Units 07:54 04:15 04:15 WBC 2.2 L (4.8-10.8) x10^3/uL RBC 3.44 L (4.20-5.40) 10^6/uL Hgb 10.6 L (12.0-16.0) g/dL Hct 31.8 L (37.0-47.0) % MCV 92.6 (81.0-99.0) fL MCH 30.9 (27.0-31.0) pg MCHC 33.4 (32.0-36.0) g/dL RDW 19.7 H (12.0-15.0) % Plt Count 56 L (130-450) 10^3/uL MPV 9.0 (7.9-10.8) fL Neut # Not Reportable Lymph # Not Reportable [place] # Not Reportable Eos # Not Reportable Baso # Not Reportable Absolute Nucleated RBC Not Reportable Total Counted 100 Band Neuts % (Manual) 2 (0 - 10) % Abnorm Lymph % (Manual) 0 % Nucleated RBC % Not Reportable Neutrophils # (Manual) 1.5 (1.5-6.6) 10^3/uL Lymphocytes # (Manual) 0.5 L (1.5-3.5) 10^3/uL Monocytes # (Manual) 0.2 (0.0-1.0) 10^3/uL Eosinophils # (Manual) 0.1 (0-0.7) 10^3/uL Basophils # (Manual) 0.0 (0-0.1) 10^3/uL Differential Comment MANUAL DIFFERENTIAL Platelet Estimate DECREASED (<130,000) (NORMAL) RBC Morph Micro Appear NORMAL APPEARANCE (NORMAL) Sodium 140 (135-145) mmol/L Potassium 3.3 L (3.5-5.0) mmol/L Chloride 114 H (101-111) mmol/L Carbon Dioxide 17 L (21-32) mmol/L Anion Gap 9.0 (6-13) BUN 17 (6-20) mg/dL Creatinine 1.3 H (0.4-1.0) mg/dL Estimated GFR (MDRD) 42 L (>89) Glucose 91 (70-100) mg/dL POC Whole Bld Glucose 85 (70 - 100) mg/dL Calcium 8.4 L (8.5-10.3) mg/dL Magnesium 1.6 L (1.7-2.8) mg/dL - Current Medications Current Medications: Current Medications Generic Name Dose Route Start Last Admin Trade Name Freq PRN Reason Stop Dose Admin Acetaminophen 650 mg 06/14/17 23:25 06/15/17 00:09 Tylenol PO 650 mg Q4HR PRN Administration Pain or Fever > 38C (100.4F) Diphenoxylate HCl/Atropine 1 tab 06/17/17 15:33 06/18/17 21:25 Lomotil PO 1 tab QID PRN Administration Diarrhea Heparin Sodium (Beef Lung) 30 - 50 unit 06/17/17 12:36 06/19/17 04:21 IVP 50 unit Q8H PRN Administration Central Line Protocol (<24 hr) Hydromorphone HCl 1 mg 06/15/17 15:14 06/18/17 12:55 Dilaudid Inj Syringe IVP 1 mg Q2H PRN Administration Pain 8 to 10 Insulin Aspart 1 - 5 unit 06/15/17 17:00 06/19/17 21:31 Novolog SUBQ Not Given 0800,1200,1700,2100 MAGGY Protocol Insulin Glargine 20 unit 06/14/17 21:00 06/19/17 21:31 Lantus Solostar SUBQ 10 unit QPM MAGGY Administration Levofloxacin 500 mg 06/17/17 16:00 06/19/17 17:56 Levaquin PO 500 mg Q24H MAGGY Administration Pantoprazole Sodium 40 mg 06/14/17 17:00 06/19/17 07:08 Protonix IVP 40 mg QDAC MAGGY Administration Polyethylene Glycol 17 gm 06/17/17 09:00 06/19/17 08:15 Miralax PO Not Given DAILY MAGGY Potassium Chloride 40 meq 06/18/17 09:00 06/19/17 17:56 K-Dur PO 40 meq TIDWM MAGGY Administration Saccharomyces Boulardii 250 mg 06/17/17 17:00 06/19/17 17:56 Florastor PO 250 mg BIDWM MAGGY Administration Sodium Chloride 10 ml 06/15/17 01:00 06/19/17 17:57 Normal Saline Flush 0.9% IVP 10 ml 0100,0900,1700 MAGGY Administration Sodium Chloride 10 ml 06/14/17 15:48 06/18/17 04:34 Normal Saline Flush 0.9% IVP 20 ml PRN PRN Administration NEEDED PER PROVIDER ORDERS Sodium Phosphate 250 mg 06/18/17 09:00 06/19/17 17:56 K-Phos Neutral PO 250 mg TIDWM MAGGY Administration Throat Lozenges 1 lozenge 06/15/17 14:43 06/15/17 15:12 Cepacol MM 1 lozenge Q2HR PRN Administration Throat pain - Physical Exam Abdomen: positive: Other (anal micah drains in place. No purulent drainage or erythema) Impression/Plan - Problem List Problem List: s/p Glenn procedure for horseshoe abscess POD#2. Wound looks good in anal area. Continue sitzs baths and IV antibiotics. P
--- NOTE | 2017-06-19 23:27 | PROVIDER PROGRESS NOTE ---
Subjective - General Admit Date: 06/14/17 Procedure Performed: Glenn procedure for horseshoe abscess - Review of Systems Wound/Incisions: positive: Other (open wounds with drains in place) Gastrointestinal: positive: Diarrhea, Other (pain at surgical site in anal area. ) Objective - Patient Data Vital Signs: Vital Signs x48h Temp Pulse Resp BP Pulse Ox 06/19/17 21:27 36.6 C 96 24 147/65 H 95 06/19/17 18:44 36.9 C 94 20 141/59 H 95 Weight: Weight 06/17/17 06/18/17 06/19/17 23:59 23:59 23:59 Weight (kg) 93.372 kg 95.481 kg 94.6 kg Intake & Output: Intake and Output Totals x24h 06/17/17 06/18/17 06/19/17 23:59 23:59 23:59 Intake Total 4740.000 2060.000 1737 Output Total 800 306 15 Balance 3940.000 2677.331 5595 - Lab Results Lab Results: 06/19/17 04:15 06/19/17 04:15 Other Lab Results: Lab Results x24hrs 06/19/17 06/19/17 06/19/17 Range/Units 21:14 16:27 11:29 WBC (4.8-10.8) x10^3/uL RBC (4.20-5.40) 10^6/uL Hgb (12.0-16.0) g/dL Hct (37.0-47.0) % MCV (81.0-99.0) fL MCH (27.0-31.0) pg MCHC (32.0-36.0) g/dL RDW (12.0-15.0) % Plt Count (130-450) 10^3/uL MPV (7.9-10.8) fL Neut # Lymph # [place] # Eos # Baso # Absolute Nucleated RBC Total Counted Band Neuts % (Manual) (0 - 10) % Abnorm Lymph % (Manual) % Nucleated RBC % Neutrophils # (Manual) (1.5-6.6) 10^3/uL Lymphocytes # (Manual) (1.5-3.5) 10^3/uL Monocytes # (Manual) (0.0-1.0) 10^3/uL Eosinophils # (Manual) (0-0.7) 10^3/uL Basophils # (Manual) (0-0.1) 10^3/uL Differential Comment Platelet Estimate (NORMAL) RBC Morph Micro Appear (NORMAL) Sodium (135-145) mmol/L Potassium (3.5-5.0) mmol/L Chloride (101-111) mmol/L Carbon Dioxide (21-32) mmol/L Anion Gap (6-13) BUN (6-20) mg/dL Creatinine (0.4-1.0) mg/dL Estimated GFR (MDRD) (>89) Glucose (70-100) mg/dL POC Whole Bld Glucose 89 91 103 H (70 - 100) mg/dL Calcium (8.5-10.3) mg/dL Magnesium (1.7-2.8) mg/dL 06/19/17 06/19/17 06/19/17 Range/Units 07:54 04:15 04:15 WBC 2.2 L (4.8-10.8) x10^3/uL RBC 3.44 L (4.20-5.40) 10^6/uL Hgb 10.6 L (12.0-16.0) g/dL Hct 31.8 L (37.0-47.0) % MCV 92.6 (81.0-99.0) fL MCH 30.9 (27.0-31.0) pg MCHC 33.4 (32.0-36.0) g/dL RDW 19.7 H (12.0-15.0) % Plt Count 56 L (130-450) 10^3/uL MPV 9.0 (7.9-10.8) fL Neut # Not Reportable Lymph # Not Reportable [place] # Not Reportable Eos # Not Reportable Baso # Not Reportable Absolute Nucleated RBC Not Reportable Total Counted 100 Band Neuts % (Manual) 2 (0 - 10) % Abnorm Lymph % (Manual) 0 % Nucleated RBC % Not Reportable Neutrophils # (Manual) 1.5 (1.5-6.6) 10^3/uL Lymphocytes # (Manual) 0.5 L (1.5-3.5) 10^3/uL Monocytes # (Manual) 0.2 (0.0-1.0) 10^3/uL Eosinophils # (Manual) 0.1 (0-0.7) 10^3/uL Basophils # (Manual) 0.0 (0-0.1) 10^3/uL Differential Comment MANUAL DIFFERENTIAL Platelet Estimate DECREASED (<130,000) (NORMAL) RBC Morph Micro Appear NORMAL APPEARANCE (NORMAL) Sodium 140 (135-145) mmol/L Potassium 3.3 L (3.5-5.0) mmol/L Chloride 114 H (101-111) mmol/L Carbon Dioxide 17 L (21-32) mmol/L Anion Gap 9.0 (6-13) BUN 17 (6-20) mg/dL Creatinine 1.3 H (0.4-1.0) mg/dL Estimated GFR (MDRD) 42 L (>89) Glucose 91 (70-100) mg/dL POC Whole Bld Glucose 85 (70 - 100) mg/dL Calcium 8.4 L (8.5-10.3) mg/dL Magnesium 1.6 L (1.7-2.8) mg/dL - Current Medications Current Medications: Current Medications Generic Name Dose Route Start Last Admin Trade Name Freq PRN Reason Stop Dose Admin Acetaminophen 650 mg 06/14/17 23:25 06/15/17 00:09 Tylenol PO 650 mg Q4HR PRN Administration Pain or Fever > 38C (100.4F) Diphenoxylate HCl/Atropine 1 tab 06/17/17 15:33 06/18/17 21:25 Lomotil PO 1 tab QID PRN Administration Diarrhea Heparin Sodium (Beef Lung) 30 - 50 unit 06/17/17 12:36 06/19/17 04:21 IVP 50 unit Q8H PRN Administration Central Line Protocol (<24 hr) Hydromorphone HCl 1 mg 06/15/17 15:14 06/18/17 12:55 Dilaudid Inj Syringe IVP 1 mg Q2H PRN Administration Pain 8 to 10 Insulin Aspart 1 - 5 unit 06/15/17 17:00 06/19/17 21:31 Novolog SUBQ Not Given 0800,1200,1700,2100 MAGGY Protocol Insulin Glargine 20 unit 06/14/17 21:00 06/19/17 21:31 Lantus Solostar SUBQ 10 unit QPM MAGGY Administration Levofloxacin 500 mg 06/17/17 16:00 06/19/17 17:56 Levaquin PO 500 mg Q24H MAGGY Administration Pantoprazole Sodium 40 mg 06/14/17 17:00 06/19/17 07:08 Protonix IVP 40 mg QDAC MAGGY Administration Polyethylene Glycol 17 gm 06/17/17 09:00 06/19/17 08:15 Miralax PO Not Given DAILY MAGGY Potassium Chloride 40 meq 06/18/17 09:00 06/19/17 17:56 K-Dur PO 40 meq TIDWM MAGGY Administration Saccharomyces Boulardii 250 mg 06/17/17 17:00 06/19/17 17:56 Florastor PO 250 mg BIDWM MAGGY Administration Sodium Chloride 10 ml 06/15/17 01:00 06/19/17 17:57 Normal Saline Flush 0.9% IVP 10 ml 0100,0900,1700 MAGGY Administration Sodium Chloride 10 ml 06/14/17 15:48 06/18/17 04:34 Normal Saline Flush 0.9% IVP 20 ml PRN PRN Administration NEEDED PER PROVIDER ORDERS Sodium Phosphate 250 mg 06/18/17 09:00 06/19/17 17:56 K-Phos Neutral PO 250 mg TIDWM MAGGY Administration Throat Lozenges 1 lozenge 06/15/17 14:43 06/15/17 15:12 Cepacol MM 1 lozenge Q2HR PRN Administration Throat pain - Physical Exam Rectal: positive: Other (Carleen in place. No signficant drainage or erythema.) Impression/Plan - Problem List Problem List: s/p Glenn procedure for horseshoe abscess POD#3. wound clean. C/o diarrhea. Check C. Difficle. If negative then will start Imodium Continue Sitz baths and IV antibiotics for Klebsiella
[2017-06-20] MEDS: SODIUM CHLORIDE FLUSH 0.9% 10 ML SYRINGE IVP PRN ×2 (00:47→06:33)
[2017-06-20] MEDS: SODIUM CHLORIDE FLUSH 0.9% 10 ML SYRINGE IVP SCH ×2 (00:47→09:45)
[2017-06-20] MEDS: PANTOPRAZOLE 40 MG VIAL IVP SCH (06:33)
[2017-06-20 08:11] LABS: HGB - HEMOGLOBIN 11.4 g/dL (12.0-16.0); MEAN CORPUSCULAR HGB CONC 34.4 g/dL (32.0-36.0); MEAN CORPUSCULAR VOLUME 92.8 fL (81.0-99.0); MEAN PLATELET VOLUME 9.1 fL (7.9-10.8); RED BLOOD COUNT 3.58 10^6/uL (4.20-5.40); RED CELL DISTRIBUTION WIDTH 18.6 % (12.0-15.0); WHITE BLOOD COUNT 2.5 x10^3/uL (4.8-10.8)
[2017-06-20 08:20] LABS: CALCIUM 8.9 mg/dL (8.5-10.3); CREATININE 1.2 mg/dL (0.4-1.0)
[2017-06-20] MEDS ORDERED: SPIRONOLACTONE 25 MG TABLET PO SCH (09:00)
[2017-06-20] MEDS: INSULIN ASPART 300 UNIT/3 ML PEN SUBQ SCH ×2 (09:36→12:19)
[2017-06-20] MEDS: NEUTRA-PHOS 250 MG TABLET PO SCH ×2 (09:36→12:20)
[2017-06-20] MEDS: POTASSIUM CHLORIDE 20 MEQ TABLET PO SCH ×2 (09:37→12:20)
[2017-06-20] MEDS: DIPHENOX/ATROPINE 2.5/0.025 MG TABLET PO PRN (09:37)
[2017-06-20] MEDS: SACCHAROMYCES BOULARDII 250 MG CAPSULE PO SCH (09:37)
[2017-06-20] MEDS: POLYETHYLENE GLYCOL 3350 17 GM PACKET PO SCH (09:37)
--- NOTE | 2017-06-20 10:55 | Discharge Plan ---
Discharge Plan Disposition: 01 Home, Self Care Condition: Stable Prescriptions: Diphenoxylate/Atropine [Lomotil] 1 tab PO QID PRN #20 tablet PRN Reason: Diarrhea Instruction Topics: Levofloxacin tablets, Sitz Bath, Perianal Abscess No Smoking: If you smoke, Please STOP! Call for help. Follow-up with: Juanito Wilkins DO [Primary Care Provider] -
--- NOTE | 2017-06-20 13:23 | DISCHARGE SUMMARY ---
Discharge Summary Admit Date: 06/14/17 Discharge Date: 06/20/17 Discharging Provider: Delilah Ordonez Primary Care Provider: Juanito Wilkins Code Status: Do Not Attempt Resuscitation Condition at Discharge: Stable Discharge Disposition: 01 Home, Self Care - DIAGNOSES Admission Diagnoses: 1. Perianal abscesses 2. Sepsis 3. Aortic stenosis 4. Chronic kidney disease, stage III 5. Type 2 diabetes mellitus 6. Chronic pain from stage IV metastatic breast cancer 7. morbid obesity 8. Anemia Discharge Diagnoses with Status of Each Condition: 1. Perianal abscesses -The patient underwent multiple incision and drainages with Dr. Cruz and now has Carleen drains in place. Dr. Cruz anticipates the drain staying in place for another 3-4 weeks. We will discharge the patient home on 7 days of antibiotic therapy and she will follow-up with Dr. Cruz in 1-2 weeks. 2. Sepsis- Resolved, improved. The patient will be discharged home on oral antibiotics for 7 days. 3. Aortic stenosis- Well-managed, no episodes of syncope, chest pain, or CHF. 4. Chronic kidney disease, stage III - Well-managed, creatinine is 1.2 today. This is lowest the patient is seen at in many years. 5. Type 2 diabetes mellitus- Very well-managed, suggest patient to keep same medication regimen at home she has been here in the hospital. 6. Chronic pain from stage IV metastatic breast cancer - Well-managed with use of hydromorphone. Continue as needed. 7. morbid obesity - Patient is overweight but this is not the time for her to diet. She is aware of her overweight status. 8. Anemia- The patient was transfused on June 16. Her hemoglobin has remained stable since then, and is climbing daily. - HPI History of Present Illness: The patient is a very pleasant 62-year-old female with a history of metastatic breast cancer. Unfortunately 1 of the patient's chemotherapy drugs predisposed her to bladder cancer which she later developed. In treating her for the bladder cancer she received radiation which caused some scarring to her rectal area and the patient recently underwent a colonoscopy. Several days after undergoing the colonoscopy the patient began to experience pain in her buttocks and rectal area and she developed several bryan-anal abscesses. - HOSPITAL COURSE Hospital Course: Patient was admitted to medical floor and she was taken to surgery with Dr. Cruz who inserted multiple [place] drains following multiple incision and drainages. She is returned back to the floor on IV antibiotics which were later changed over to oral. She has continued to remain relatively stable and her only complaints have been to pain in the buttocks area where she had the surgeries. She has stabilized over the last several days and will not be discharged home with her . Both she and her are adamant that they do not want home health and want to care for her themselves. - ALLERGIES Allergies/Adverse Reactions: Allergies Allergy/AdvReac Type Severity Reaction Status Date / Time shrimp Allergy Severe Hives Verified 06/15/17 07:18 indomethacin [From Indocin] Allergy Intermediate Rash Verified 06/14/17 11:47 lisinopril Allergy Intermediate cough Verified 06/14/17 11:47 levofloxacin [From Levaquin] Allergy Unknown rash? Verified 06/14/17 11:47 oxycodone HCl * AdvReac Emesis Verified 06/14/17 11:47 [From Percocet] - MEDICATIONS Home Medications: Ambulatory Orders Medication Instructions Recorded Confirmed Folic Acid 1 mg PO DAILY 10/21/12 06/14/17 Insulin Aspart [Novolog Flexpen] 10 units SUBQ TIDWM 03/20/15 06/14/17 Insulin Glargine [Lantus Solostar] 40 units SUBQ QPM 03/20/15 06/14/17 Letrozole [Femara] 2.5 mg PO DAILY 03/20/15 06/14/17 Palbociclib [Ibrance] 125 mg PO .21DAYSON,7DAYSOFF 03/20/15 06/14/17 Cyclobenzaprine HCl 10 mg PO TID PRN 06/10/17 06/14/17 Famotidine 20 mg PO BID 06/10/17 06/14/17 Potassium Chloride [Klor-Con M20] 20 meq PO BIDWM 06/10/17 06/14/17 amLODIPine [Norvasc] 5 mg PO DAILY 06/10/17 06/14/17 Aspirin [Aspirin EC] 81 mg PO DAILY 06/14/17 06/14/17 Atorvastatin Calcium 40 mg PO QPM 06/14/17 06/14/17 Spironolactone 50 mg PO DAILY 06/14/17 06/14/17 Diphenoxylate/Atropine [Lomotil] 1 tab PO QID PRN #20 tablet 06/20/17 - PHYSICAL EXAM AT DISCHARGE General Appearance: positive: No acute distress, Alert Eyes Bilateral: positive: Normal inspection, PERRL, EOMI, No lid inflammation, Conjunctivae nml, No scleral icterus ENT: positive: ENT inspection nml, Pharynx nml, No signs of dehydration Neck: positive: Nml inspection, Thyroid nml, No JVD, Trachea midline. negative : Thyromegaly Respiratory: positive: Chest non-tender, No respiratory distress, Breath sounds nml. negative: Wheezes, Rales, Rhonchi Cardiovascular: positive: Regular rate & rhythm, No murmur, No gallop Peripheral Pulses: positive: 1+ Abdomen: positive: Non-tender, No organomegaly, Nml bowel sounds, No distention. negative: Guarding, Rebound Back: positive: Nml inspection. negative: CVA tenderness (R), CVA tenderness (L ) Skin: positive: Color nml, No rash, Warm, Dry. negative: Cyanosis Extremities: positive: Non-tender, Full ROM, Nml appearance, No pedal edema Neurologic/Psychiatric: positive: Oriented x3, CN's nml (2-12), Motor nml, Sensation nml, Mood/affect nml - LABS Result Diagrams: 06/20/17 08:08 06/20/17 08:08 - FOLLOW UP Follow Up: Follow-up with Dr. Cruz in 2 weeks. Continue doxycycline for 1 week. - TIME SPENT Time Spent in Discharge (Minutes): 40
[2017-06-20 14:26] VITALS: BP 143/53
[2017-06-20] MEDS ORDERED: DOXYCYCLINE 100 MG TABLET PO SCH (21:00)
== END 2017-06-20 15:00 | disposition home or self-care (01) | DRG 854 ==
LOC: ED 11:31 → ICU 15:49 → MS2 06-19 18:22
PROVIDERS: ADMIT Specialist; ATTEND Hospitalist
PROC: 02HV33Z Insertion of Infusion Device into Superior Vena Cava, Percutaneous Approach (ICD-10-PCS; 2017-06-14)
PROC: B548ZZA Ultrasonography of Superior Vena Cava, Guidance (ICD-10-PCS; 2017-06-14)
PROC: 30233N1 Transfusion of Nonautologous Red Blood Cells into Peripheral Vein, Percutaneous Approach (ICD-10-PCS; 2017-06-14)
PROC: 0D9Q00Z Drainage of Anus with Drainage Device, Open Approach (ICD-10-PCS; principal; 2017-06-15 08:00)
DX: A41.9 Sepsis, unspecified organism (principal); K61.0 Anal abscess; C79.51 Secondary malignant neoplasm of bone; I35.0 Nonrheumatic aortic (valve) stenosis; I12.9 Hypertensive chronic kidney disease with stage 1 through stage 4 chronic kidney disease, or unspecified chronic kidney disease; N18.3 Chronic kidney disease, stage 3 (moderate); E11.22 Type 2 diabetes mellitus with diabetic chronic kidney disease; E11.40 Type 2 diabetes mellitus with diabetic neuropathy, unspecified; E66.01 Morbid (severe) obesity due to excess calories; Z68.34 Body mass index [BMI] 34.0-34.9, adult; E87.6 Hypokalemia; D64.9 Anemia, unspecified; D70.1 Agranulocytosis secondary to cancer chemotherapy; T45.1X5D Adverse effect of antineoplastic and immunosuppressive drugs, subsequent encounter; G89.3 Neoplasm related pain (acute) (chronic); I25.118 Atherosclerotic heart disease of native coronary artery with other forms of angina pectoris; K57.30 Diverticulosis of large intestine without perforation or abscess without bleeding; K64.8 Other hemorrhoids; K21.9 Gastro-esophageal reflux disease without esophagitis; K62.89 Other specified diseases of anus and rectum; Y84.2 Radiological procedure and radiotherapy as the cause of abnormal reaction of the patient, or of later complication, without mention of misadventure at the time of the procedure; L40.9 Psoriasis, unspecified; M10.9 Gout, unspecified; K76.0 Fatty (change of) liver, not elsewhere classified; Z66 Do not resuscitate; Z79.4 Long term (current) use of insulin; Z79.82 Long term (current) use of aspirin; Z79.899 Other long term (current) drug therapy; Z87.891 Personal history of nicotine dependence; Z85.51 Personal history of malignant neoplasm of bladder; Z85.3 Personal history of malignant neoplasm of breast
CPT/HCPCS: 36415; 71045; 74176; 80048; 80053; 81001; 81003; 82040; 82330; 83036; 83605; 83690; 83735; 84100; 84132; 85025; 86850; 86900; 86901; 86920; 87040; 87070; 87077; 87086; 87150; 87205; 87493; 96361; 96365; 96367; 96368; 96375; 99283; 99284; 99285

== ENCOUNTER 2017-08-08 09:06 | Day surgery (SDC) | payer OTHER ==
[~2017-08-08 09:06] MED LIST: BUPIVACAINE 0.5%-EPI 1:200000 PF 10 ML VIAL ONE; LIDOCAINE 1% 50 ML MDV ONE; LIDOCAINE OINTMENT 5% 35.44 GM TUBE ONE; PIPERACILLIN/TAZOBACTAM 3.375 GM in SODIUM CHLORIDE 0.9% MINIBAG 100 ML IV ONE
[2017-08-08] MEDS ORDERED: LACTATED RINGERS 1,000 ML IV ONE (09:12)
[2017-08-08] MEDS ORDERED: BACITRACIN ZINC OINT 15 GM TOP ONE (11:20)
[2017-08-08] MEDS ORDERED: MIDAZOLAM 2 MG/2 ML VIAL IVP ONE (11:20)
[2017-08-08] MEDS ORDERED: fentaNYL 100 MCG/2 ML VIAL IVP ONE (11:20)
[2017-08-08] MEDS ORDERED: PROPOFOL 200 MG/20 ML VIAL IVP ONE (11:20)
[2017-08-08] MEDS ORDERED: LIDOCAINE-MPF 2% 5 ML VIAL IM ONE (11:20)
[2017-08-08] MEDS ORDERED: LIDOCAINE 1% 10 ML MDV SUBQ ONE (11:20)
[2017-08-08] MEDS ORDERED: BACITRACIN OINT TOP ONE (11:22)
[2017-08-08 12:39] VITALS: BP 140/58
--- NOTE | 2017-08-08 14:04 | OPERATIVE REPORT ---
DATE OF SERVICE: 08/08/2017 Physician: Danyel Cruz MD PREOPERATIVE DIAGNOSIS: Anal fistula POSTOPERATIVE DIAGNOSIS: Anal fistula. PROCEDURE: Second stage anal fistulectomy. OPERATING SURGEON: Danyel Cruz MD ANESTHESIA: General. 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 She underwent a modified Glenn procedure with a [place] drain placed around the posterior anal sphincter. She did not develop any problems with incontinence. The [place] drain that had been previously placed in the lateral abscesses, had been removed. She is now to undergo division of the small amount of tissue around the posterior portion of the anal sphincter involved with the fistula disease. FINDINGS AT SURGERY: The patient had a small amount of fibrous tissue, which the [place] drain was around. This tissue was excised without any fistulous disease being noted further. PROCEDURE: After informed consent was obtained, the patient was taken to the operating room and placed in supine position. General anesthesia was administered. The patient was then placed in the lithotomy position. The anal area was then prepped and draped in usual sterile fashion. A perianal block was then performed using local anesthesia. A [place] drain was then pulled up and the tissue wrapped around the [place] ring was then divided. There did not appear to be any other fistulous disease with a previous incision and drainage abscess area being completely healed. Neosporin was then applied to the surgical site. A dry dressing was then placed on top. The patient was then taken out of lithotomy position, awakened, extubated, and taken from the operating room in stable condition. ESTIMATED BLOOD LOSS: Less than 1 mL. COMPLICATIONS: None. CONDITION OF THE PATIENT AT END OF PROCEDURE: Stable. SPECIMENS: None. DRAINS AND PACKS: None. CLASSIFICATION OF WOUND: Clean, contaminated. cc: Juanito Wilkins DO TD: 08/08/2017 13:36
== END 2017-08-08 09:07 | disposition home or self-care (01) ==
LOC: SDS 09:06
PROVIDERS: ATTEND Surgery
PROC: 0DBQ0ZZ Excision of Anus, Open Approach (ICD-10-PCS; principal; 2017-08-08 10:15)
DX: K60.3 Anal fistula (principal); Z87.891 Personal history of nicotine dependence; C79.51 Secondary malignant neoplasm of bone; E11.9 Type 2 diabetes mellitus without complications; I10 Essential (primary) hypertension; E78.5 Hyperlipidemia, unspecified; Z79.4 Long term (current) use of insulin
CPT/HCPCS: 46285; A9270; J7120

== ENCOUNTER 2017-08-18 12:39 | Outpatient (CLI) | payer OTHER ==
--- NOTE | 2017-08-18 14:23 | Mammography Report ---
DIAGNOSTIC RIGHT MAMMOGRAM: 08/18/2017 CLINICAL INDICATION: Followup calcifications. TECHNIQUE: Right CC, MLO, laterally exaggerated CC, true lateral, spot magnification views. COMPARISON: 11/27/2016, 05/27/2016, 11/24/2015, 10/23/2015, 10/21/2014, 08/20/2013, 08/05/2012. FINDINGS: The right breast again demonstrates scattered fibroglandular densities. Postoperative and posttreatment changes are stable. Calcifications in the right lower inner quadrant continue to coarsen, compatible with dystrophic calcifications. No suspicious mass or architectural distortion is identified. IMPRESSION: PROBABLE BENIGN POSTOPERATIVE CHANGES AND DYSTROPHIC CALCIFICATIONS. RECOMMENDATION: Diagnostic bilateral mammogram in 6 months, to return the patient to an annual schedule. BI-RADS CATEGORY 3 - PROBABLE BENIGN FINDINGS. STANDARD QUALIFYING STATEMENTS: 1. This examination was reviewed with the aid of Computer-Aided Detection (CAD). 2. A negative or benign imaging report should not delay biopsy if clinically suspicious findings are present. Consider surgical consultation if warranted. More than 5% of cancers are not identified by imaging. 3. Dense breasts may obscure an underlying neoplasm. TD: 08/18/2017 13:57
== END 2017-08-18 12:40 | disposition home or self-care (01) ==
LOC: DI 12:39
PROVIDERS: ATTEND Family Medicine
DX: N63.10 Unspecified lump in the right breast, unspecified quadrant (principal)

== ENCOUNTER 2017-09-04 11:54 | Outpatient (CLI) | payer OTHER ==
[~2017-09-04 11:54] MED LIST changes: -BUPIVACAINE 0.5%-EPI 1:200000 PF 10 ML VIAL ONE; +GADOBUTROL 10 MMOL/10 ML VIAL ONE; -LIDOCAINE 1% 50 ML MDV ONE; -LIDOCAINE OINTMENT 5% 35.44 GM TUBE ONE; -PIPERACILLIN/TAZOBACTAM 3.375 GM in SODIUM CHLORIDE 0.9% MINIBAG 100 ML IV ONE
[2017-09-04] MEDS ORDERED: GADOBUTROL 10 MMOL/10 ML VIAL IVP ONE (13:52)
--- NOTE | 2017-09-04 15:31 | MRI Report ---
EXAM: MRI BRAIN WITHOUT AND WITH CONTRAST EXAM DATE: 09/04/2017 01:56 PM. CLINICAL HISTORY: Headache, secondary bone cancer. COMPARISON: Prior CT sinuses 11/21/2016. TECHNIQUE: Multiplanar, multisequence T1-weighted and fluid-sensitive MR sequences of the brain were performed. Sequences optimized for routine evaluation. Other: None. IV Contrast: 9 cc Gadavist. Findings: Relevant images are indicated (image number, series number). There is no acute or subacute ischemic change in the brain. There is no hemosiderin deposition is in the brain. There is no hemorrhage, mass or midline shift. Orbital contents negative, patient status post bilater al lens surgery. Mild right maxillary, posterior right ethmoidal sinus mucosal thickening. Remaining paranasal sinuses, mastoid air cells demonstrate no significant fluid signal. Normal expected vascular flow voids of the major arteries and veins. Mild generalized cortical atrophy, greater involvement bilateral parietal cortex, greater appearance of the bilateral marginal sulcus, minimal compensatory ventricular enlargement. Mild scattered perive ntricular, some focal white matter disease including left splenomegaly corpus callosum. Postcontrast imaging demonstrates no abnormal enhancement of the vein, meninges. There are no suspici ous marrow lesions. Pituitary, infundibulum, midbrain are unremarkable. Craniocervical junction, limited evaluation upper cervical cord negative. Impressions: 1. No acute or subacute ischemic change in the brain. 2. Mild generalized cortical atrophy however greater involvement of the bilateral parietal cortex, chaudhry perimposed mild scattered nonspecific matter disease most likely related to chronic small vessel isch emic disease. Postcontrast imaging negative, no evidence of metastatic disease to the brain, meninges . There are no suspicious enhancing marrow lesions. [facility] Referring Provider Line: [phone] SITE ID: [id number]
== END 2017-09-04 11:55 | disposition home or self-care (01) ==
LOC: LAB 11:54 → DI 11:55
PROVIDERS: ATTEND Family Medicine
DX: R51 Headache (principal); C79.51 Secondary malignant neoplasm of bone; C67.9 Malignant neoplasm of bladder, unspecified; N17.8 Other acute kidney failure
CPT/HCPCS: 70553; A9585; 36415; 80048

== ENCOUNTER 2017-12-12 07:15 | Outpatient (CLI) | payer OTHER ==
[2017-12-12 18:35] LABS: HB2 TOTAL 10.3 g/dL; HEMOGLOBIN A1C 0.45 g/dL; HEMOGLOBIN A1C % 6.1 % (4.6-6.2)
== END 2017-12-12 07:16 | disposition home or self-care (01) ==
LOC: LAB.WCP 07:15
PROVIDERS: ATTEND Family Medicine
DX: E11.9 Type 2 diabetes mellitus without complications (principal)
CPT/HCPCS: 36415; 82985; 83036

== ENCOUNTER 2018-01-14 00:52 | Emergency (ER) | payer MEDICARE, OTHER ==
[2018-01-14] MEDS ORDERED: HYDROmorphone 1 MG/ML CARPUJECT IVP STA ×2 (01:25→03:15)
--- NOTE | 2018-01-14 01:28 | ED Physician Documentation ---
History of Present Illness - Stated complaint Stated Complaint: L HIP PAIN - Chief complaint Chief Complaint: General - History obtained from History obtained from: Patient, Family - History of Present Illness Timing: How many weeks ago (1) Pain level max: 9 Pain level now: 9 Quality: pain Improved by: nothing Worsened by: movement, palpation - Additonal information Additional information: Patient is a 62-year-old female who presents to the emergency department with left lower quadrant abdominal pain for the last week. She also states that her left hip hurts. She has had constipation since being started on oxycodone for hip pain. Denies any fevers or vomiting. She states that it also hurts to attempt to urinate. Has had perirectal abscesses in the past. Review of Systems Constitutional: denies: Fever, Chills Ears: denies: Ear pain Nose: denies: Rhinorrhea / runny nose, Congestion Respiratory: denies: Cough GI: denies: Nausea, Vomiting, Diarrhea, Hematemesis, Bloody / black stool Skin: denies: Rash Musculoskeletal: denies: Neck pain, Back pain Neurologic: denies: Focal weakness, Numbness, Headache PD PAST MEDICAL HISTORY - Past Medical History Cardiovascular: Hypertension, High cholesterol, Murmur Respiratory: None Endocrine/Autoimmune: Type 2 diabetes GI: Hemorrhoids : Renal insuffiency HEENT: Chronic sinusitis Psych: None Musculoskeletal: Fatigue, Chronic back pain Derm: Psoriasis - Past Surgical History Past Surgical History: Yes General: Colonoscopy /CHANGE 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: section HEENT: Cataracts - Present Medications Home Medications: Ambulatory Orders Medication Instructions Recorded Confirmed Folic Acid 1 mg PO DAILY 10/21/12 01/14/18 Insulin Aspart [Novolog Flexpen] 0 - 10 units SUBQ TIDWM 03/20/15 01/14/18 Insulin Glargine [Lantus Solostar] 20 - 40 units SUBQ QPM 03/20/15 01/14/18 Letrozole [Femara] 2.5 mg PO DAILY 03/20/15 01/14/18 Palbociclib [Ibrance] 100 mg PO .21DAYSON,7DAYSOFF 03/20/15 01/14/18 Famotidine 20 mg PO BID 06/10/17 01/14/18 Potassium Chloride [Klor-Con M20] 20 meq PO DAILY 06/10/17 01/14/18 amLODIPine [Norvasc] 5 mg PO DAILY 06/10/17 01/14/18 Atorvastatin Calcium 40 mg PO QPM 06/14/17 01/14/18 Diphenoxylate/Atropine [Lomotil] 1 tab PO QID PRN #20 tablet 06/20/17 01/14/18 Doxycycline Hyclate 100 mg PO BID 08/01/17 01/14/18 Amox/Clav 875/125 [Augmentin] 1 each PO Q12H #20 tablet 01/14/18 Cyclobenzaprine [Flexeril] 10 mg PO TID PRN #20 tablet 01/14/18 Meloxicam [Mobic] 7.5 mg PO BID PRN #20 tablet 01/14/18 - Allergies Allergies/Adverse Reactions: Allergies Allergy/AdvReac Type Severity Reaction Status Date / Time shrimp Allergy Severe Hives Verified 01/14/18 00:59 indomethacin [From Indocin] Allergy Intermediate Rash Verified 01/14/18 00:59 lisinopril Allergy Intermediate cough Verified 01/14/18 00:59 levofloxacin [From Levaquin] Allergy Unknown rash? Verified 01/14/18 00:59 metformin Allergy Unknown Verified 01/14/18 00:59 telmisartan [From Micardis] Allergy Unknown Verified 01/14/18 00:59 oxycodone HCl * AdvReac Emesis Verified 01/14/18 00:59 [From Percocet] - Social History Does the pt smoke?: No Smoking Status: Never smoker PD ED PE NORMAL - Vitals Vital signs reviewed: Yes - General General: Alert and oriented X 3, No acute distress - HEENT HEENT: Moist mucous membranes - Neck Neck: Supple, no meningeal sign - Cardiac Cardiac: RRR - Respiratory Respiratory: No respiratory distress, Clear bilaterally - Abdomen Abdomen: Soft, Non distended, Other (Tender palpation left lower quadrant and suprapubic. No peritoneal signs. No tenderness or pain about the left hip. Full range of motion left hip) - Back Back: No CVA TTP, No spinal TTP - Derm Derm: Warm and dry - Neuro Neuro: Alert and oriented X 3 - Psych Psych: Normal mood, Normal affect Results - Vitals Vitals: Vital Signs - 24 hr 01/14/18 00:55 Temperature 36.6 C Heart Rate 122 H Respiratory 20 Rate Blood Pressure 146/73 H O2 Saturation 96 Oxygen O2 Source Room air - Rads (name of study) CT abdomen and pelvis Radiology: Prelim report reviewed, EMP read contemporaneously, See rad report (Findings suggestive of early changes of underlying hepatic cirrhosis. No new focal lesions in the liver. 2. Findings suggestive of focal colitis of the ascending colon. Normal-appearing appendix. 3. Negative CT scan of the pelvis. Atrophic uterus. 4. Sclerotic changes in the spine, pelvis, and proximal femora are stable. ) PD MEDICAL DECISION MAKING - ED course Complexity details: reviewed results, re-evaluated patient, considered differential, d/w patient, d/w family ED course: Patient is a 62-year-old female with what appears to be colitis. Feels better after Dilaudid. Will place on Augmentin. She is also having some muscle spasm in the extremities and will trial her on meloxicam and Flexeril for this. She is well-appearing, nontoxic. Afebrile. No perforation or abscess. Patient and family counseled regarding signs and symptoms for which I believe and urgent re- evaluation would be necessary. Patient with good understanding of and agreement to plan and is comfortable going home at this time This document was made in part using voice recognition software. While efforts are made to proofread this document, sound alike and grammatical errors may occur. - Sepsis Event Vital Signs: Vital Signs - 24 hr 01/14/18 00:55 Temperature 36.6 C Heart Rate 122 H Respiratory 20 Rate Blood Pressure 146/73 H O2 Saturation 96 Oxygen O2 Source Room air Departure - Departure Disposition: 01 Home, Self Care Clinical Impression: Colitis Condition: Good Instructions: ED Diverticulitis Follow-Up: Juanito Wilkins DO [Primary Care Provider] - Within 1 week Prescriptions: Amox/Clav 875/125 [Augmentin] 1 each PO Q12H #20 tablet Cyclobenzaprine [Flexeril] 10 mg PO TID PRN #20 tablet PRN Reason: Spasms Meloxicam [Mobic] 7.5 mg PO BID PRN #20 tablet PRN Reason: Pain Comments: Return if you worsen. Take all antibiotics until gone. This should improve over the next 2-[address] operate heavy machinery while taking the Flexeril.
[2018-01-14 01:41] LABS: BASOPHILS % (AUTO) 1.1 %; EOSINOPHILS # (AUTO) 0.1 10^3/uL (0.0-0.7); EOSINOPHILS % (AUTO) 1.5 %; LYMPHOCYTES # (AUTO) 0.6 10^3/uL (1.5-3.5); LYMPHOCYTES % (AUTO) 13.8 %; MEAN CORPUSCULAR HEMOGLOBIN 34.6 pg (27.0-31.0); MEAN CORPUSCULAR HGB CONC 34.9 g/dL (32.0-36.0); MEAN CORPUSCULAR VOLUME 99.1 fL (81.0-99.0); MEAN PLATELET VOLUME 8.2 fL (7.9-10.8); MONOCYTES # (AUTO) 0.3 10^3/uL (0.0-1.0); MONOCYTES % (AUTO) 7.5 %; NEUTROPHILS # (AUTO) 3.2 10^3/uL (1.5-6.6); NEUTROPHILS % (AUTO) 76.1 %; PLT - PLATELET COUNT 129 10^3/uL (130-450); RED BLOOD COUNT 3.46 10^6/uL (4.20-5.40); RED CELL DISTRIBUTION WIDTH 14.1 % (12.0-15.0); WHITE BLOOD COUNT 4.2 x10^3/uL (4.8-10.8)
[2018-01-14 01:54] LABS: ALBUMIN 4.5 g/dL (3.2-5.5); ALBUMIN/GLOBULIN RATIO 1.3 (1.0-2.2); BILIRUBIN,TOTAL 2.2 mg/dL (0.2-1.0); CALCIUM 10.1 mg/dL (8.5-10.3)
[2018-01-14 01:58] LABS: BILIRUBIN,URINE NEGATIVE (NEGATIVE); GLUCOSE, URINE (UA) NEGATIVE (NEGATIVE); KETONES,URINE (UA) TRACE mg/dL (NEGATIVE); LEUKOCYTE ESTERASE, URINE NEGATIVE (NEGATIVE); NITRITE,URINE NEGATIVE (NEGATIVE); OCCULT BLOOD,URINE MODERATE (NEGATIVE); PROTEIN,URINE >=300 mg/dL (NEGATIVE); UROBILINOGEN,URINE 0.2 (NORMAL) E.U./dL (NORMAL)
[2018-01-14] MEDS ORDERED: SODIUM CHLORIDE 0.9% 1,000 ML IV ONE (01:58)
[2018-01-14 01:59] LABS: CLARITY,URINE CLEAR (CLEAR)
[2018-01-14] MEDS ORDERED: IOPAMIDOL-300 100 ML VIAL ONE (02:00)
[2018-01-14 02:04] LABS: BACTERIA,URINE Few /HPF (None Seen); SQUAMOUS EPITHELIAL CELL,UR FEW Squamous (<= Few)
[2018-01-14] MEDS ORDERED: IOPAMIDOL-300 100 ML VIAL IVP ONE (02:47)
[2018-01-14] MEDS ORDERED: KETOROLAC 30 MG/ML VIAL IVP STA (02:59)
--- NOTE | 2018-01-14 03:06 | CT Report ---
Reason: LLQ abd pain Procedure Date: 01/14/2018 Accession Number: [id number] / [id number] Procedure: CT - Abdomen/Pelvis W/ CPT Code: FULL RESULT: EXAM: CT ABDOMEN AND PELVIS EXAM DATE: 01/14/2018 02:27 AM. CLINICAL HISTORY: LLQ abdominal pain. Lower abdominal and pelvic pain x4 days. Nausea. History of breast, bladder, and bone cancer. COMPARISONS: ABDOMEN/PELVIS W/O 06/14/2017 2:14 PM. TECHNIQUE: Routine helical CT imaging was performed through the abdomen and pelvis. IV contrast: 100 mL Isovue 300. Enteric contrast: No. Reconstructions: Coronal and sagittal. In accordance with CT protocol optimization, one or more of the following dose reduction techniques were utilized for this exam: automated exposure control, adjustment of mA and/or KV based on patient size, or use of iterative reconstructive technique. FINDINGS: Lung Bases: Unremarkable. Liver: The liver surface is slightly nodular suggesting developing underlying hepatic cirrhosis. There are no focal lesions within the liver. There is a small 5 mm hypoattenuating lesion near the dome of the liver similar to the prior study. This is too small to characterize yet may represent a small hepatic cyst. Gallbladder/Bile Ducts: Unremarkable. Spleen: Normal. Pancreas: Normal. Adrenal Glands: Normal. Kidneys: Normal. No masses or hydronephrosis. Peritoneal Cavity/Bowel: There is no retroperitoneal lymphadenopathy. The stomach and small bowel are unremarkable. There are some edematous changes in the de la torre of the ascending colon. The appendix is normal. There is some stranding of the fat around the ascending colon. Pelvic Organs: The uterus and adnexa are unremarkable. The bladder is decompressed. There are no bladder calculi. There is no free fluid in the pelvis. Vasculature: No aneurysms or other significant abnormality. Bones: The sclerotic changes involving the right iliac wing and a few small sclerotic foci within the pelvis are similar to the prior study. The sclerotic changes involving the L3 vertebral body are unchanged and the few small sclerotic foci in the proximal femora are unchanged. The sclerotic focus involving the left femoral neck is unchanged. Other: None. IMPRESSION: 1. Findings suggestive of early changes of underlying hepatic cirrhosis. No new focal lesions in the liver. 2. Findings suggestive of focal colitis of the ascending colon. Normal-appearing appendix. 3. Negative CT scan of the pelvis. Atrophic uterus. 4. Sclerotic changes in the spine, pelvis, and proximal femora are stable. RADIA
[2018-01-14] MEDS ORDERED: AMOX/CLAV 875 MG/125 MG TABLET PO STA (03:08)
[2018-01-14 03:36] VITALS: BP 134/76
== END 2018-01-14 03:36 | disposition home or self-care (01) ==
LOC: ED 00:52
DX: K52.9 Noninfective gastroenteritis and colitis, unspecified (principal); I10 Essential (primary) hypertension; E78.00 Pure hypercholesterolemia, unspecified; E11.9 Type 2 diabetes mellitus without complications; Z79.4 Long term (current) use of insulin
CPT/HCPCS: 36415; 74177; 80053; 81001; 81003; 83690; 85025; 87086; 99284

== ENCOUNTER 2018-01-14 16:36 | Emergency (ER) | payer MEDICARE, OTHER ==
[2018-01-14 16:54] VITALS: BP 146/96
[2018-01-14] MEDS ORDERED: HYDROmorphone 1 MG/ML CARPUJECT IM STA (18:15)
--- NOTE | 2018-01-14 18:18 | ED Physician Documentation ---
History of Present Illness - Stated complaint Stated Complaint: ABD PX/NAUS/LEG NUMBNESS - Chief complaint Chief Complaint: Abd Pain - History obtained from History obtained from: Patient - History of Present Illness Timing: Other (This is a 62-year-old woman with history of metastatic breast cancer. For the last several months she has had increasing bilateral right leg. She had a pelvic MRI per her without acute findings. Bone scans and PET scans this year have been negative. She was seen last night for this and for lower abdominal pain and diagnosed with diverticulitis. 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 HEENT: Cataracts - Present Medications Home Medications: Ambulatory Orders Medication Instructions Recorded Confirmed Folic Acid 1 mg PO DAILY 10/21/12 01/14/18 Insulin Aspart [Novolog Flexpen] 0 - 10 units SUBQ TIDWM 03/20/15 01/14/18 Insulin Glargine [Lantus Solostar] 20 - 40 units SUBQ QPM 03/20/15 01/14/18 Letrozole [Femara] 2.5 mg PO DAILY 03/20/15 01/14/18 Famotidine 20 mg PO BID 06/10/17 01/14/18 Potassium Chloride [Klor-Con M20] 20 meq PO DAILY 06/10/17 01/14/18 amLODIPine [Norvasc] 5 mg PO DAILY 06/10/17 01/14/18 Atorvastatin Calcium 40 mg PO QPM 06/14/17 01/14/18 Amox/Clav 875/125 [Augmentin] 1 each PO Q12H #20 tablet 01/14/18 Cyclobenzaprine [Flexeril] 10 mg PO TID PRN #20 tablet 01/14/18 HYDROmorphone [Dilaudid] 1 - 2 tab PO Q4H PRN #20 tablet 01/14/18 Meloxicam [Mobic] 7.5 mg PO BID PRN #20 tablet 01/14/18 - Allergies Allergies/Adverse Reactions: Allergies Allergy/AdvReac Type Severity Reaction Status Date / Time shrimp Allergy Severe Hives Verified 01/14/18 00:59 indomethacin [From Indocin] Allergy Intermediate Rash Verified 01/14/18 00:59 lisinopril Allergy Intermediate cough Verified 01/14/18 00:59 levofloxacin [From Levaquin] Allergy Unknown rash? Verified 01/14/18 00:59 metformin Allergy Unknown Verified 01/14/18 00:59 telmisartan [From Micardis] Allergy Unknown Verified 01/14/18 16:54 oxycodone HCl * AdvReac Emesis Verified 01/14/18 00:59 [From Percocet] - Social History Does the pt smoke?: No Smoking Status: Never smoker PD ED PE NORMAL - Vitals Vital signs reviewed: Yes - General General: Alert and oriented X 3, No acute distress, Other (She is uncomfortable and rubbing her legs) - Abdomen Abdomen: Normal bowel sounds, Soft, Non tender - Extremities Extremities: Other (She has muscular tenderness of both quadriceps and IT band areas, right greater than left. She has normal sensation throughout her legs. Normal patellar reflexes.) - Neuro Neuro: Alert and oriented X 3, Normal speech Results - Vitals Vitals: Vital Signs - 24 hr 01/14/18 16:51 Temperature 36.8 C Heart Rate 116 H Respiratory 20 Rate Blood Pressure 146/96 H O2 Saturation 97 Oxygen O2 Source Room air PD MEDICAL DECISION MAKING - ED course ED course: She has subacute to chronic bilateral leg pain with no clear reason and has had significant diagnostics for same. She really just needs pain management tonight before following up with her physician. - Sepsis Event Vital Signs: Vital Signs - 24 hr 01/14/18 16:51 Temperature 36.8 C Heart Rate 116 H Respiratory 20 Rate Blood Pressure 146/96 H O2 Saturation 97 Oxygen O2 Source Room air Departure - Departure Disposition: 01 Home, Self Care Clinical Impression: Bilateral leg pain Condition: Good Record reviewed to determine appropriate education?: Yes Instructions: ED Muscle Pain Leg Cramps Prescriptions: HYDROmorphone [Dilaudid] 1 - 2 tab PO Q4H PRN #20 tablet PRN Reason: Pain Comments: Follow-up with Dr. Wilkins as soon as possible for further evaluation and treatment. Return for new or worsening symptoms. Do not drink or drive while taking narcotic pain medication. Note that many narcotic pain relievers also contain Tylenol/acetaminophen. Please ensure that your total dose of acetaminophen from all sources does not exceed 3 g (3000 mg) per day. You may get constipated while on this medication. Take a stool softener such as Colace twice a day while you are on it. Also add an [id number] laxative such as senna or MiraLAX on any day that you do not have a bowel movement. If you received a narcotic pain medication or sedative while in the emergency department, do not drive for the next 24 hours.
== END 2018-01-14 18:28 | disposition home or self-care (01) ==
LOC: ED 16:36
DX: M79.605 Pain in left leg (principal); M79.604 Pain in right leg; K57.92 Diverticulitis of intestine, part unspecified, without perforation or abscess without bleeding; I10 Essential (primary) hypertension; E11.9 Type 2 diabetes mellitus without complications; Z79.4 Long term (current) use of insulin; Z85.3 Personal history of malignant neoplasm of breast; Z85.9 Personal history of malignant neoplasm, unspecified
CPT/HCPCS: 96372; 96374; 96375; 96376; 99283; J1170; 36415; 74177; 80053; 81001; 81003; 83690; 85025; 87086; 99284

== ENCOUNTER 2018-04-16 12:42 | Outpatient (CLI) | payer MEDICARE, OTHER ==
--- NOTE | 2018-04-16 15:31 | Mammography Report ---
Reason: 6 MO F/U - CAL[facility] Procedure Date: 04/16/2018 Accession Number: [id number] / [id number] Procedure: MANISHA - Diagnostic Dig Bilat CPT Code: FULL RESULT: EXAM: Diagnostic Dig Bilat DATE: 04/16/2018 2:36 PM CLINICAL HISTORY: Diagnostic mammogram. History of breast cancer status post right breast lumpectomy and chemoradiation in 2007. History of early menses. TECHNIQUE: Bilateral CC and MLO views were obtained. Additional right ML, magnified ML and magnified CC views were obtained. COMPARISON: 08/18/2017 through 08/20/2013. FINDINGS: The breasts demonstrate scattered fibroglandular densities bilaterally. Postsurgical and posttreatment changes are again seen in the right breast, within differences of technique these are stable during careful examination with multiple views. No suspicious mass or architectural distortion is identified. There are no developing suspicious calcifications. IMPRESSION: Benign findings RECOMMENDATION: Recommend routine annual Screening mammography unless otherwise clinically indicated. BIRADS CATEGORY 2: Benign findings STANDARD QUALIFYING STATEMENTS: 1. This examination was not reviewed with the aid of Computer-Aided Detection (CAD). 2. A negative or benign imaging report should not delay biopsy if clinically suspicious findings are present. Consider surgical consultation if warrented. More than 5% of cancers are not identified by imaging. 3. Dense breasts may obscure an underlying neoplasm. 4. This examination was reviewed with the aid of 3D imaging (tomography).
== END 2018-04-16 12:43 | disposition home or self-care (01) ==
LOC: DI 12:42
PROVIDERS: ATTEND Family Medicine
DX: N63.10 Unspecified lump in the right breast, unspecified quadrant (principal); R92.8 Other abnormal and inconclusive findings on diagnostic imaging of breast; Z08 Encounter for follow-up examination after completed treatment for malignant neoplasm; Z85.3 Personal history of malignant neoplasm of breast
CPT/HCPCS: 77066

== ENCOUNTER 2018-11-04 11:05 | Outpatient (CLI) | payer MEDICARE, OTHER ==
[2018-11-04 19:05] LABS: HB2 TOTAL 10.2 g/dL; HEMOGLOBIN A1C 0.47 g/dL; HEMOGLOBIN A1C % 6.4 % (4.6-6.2)
== END 2018-11-04 11:06 | disposition home or self-care (01) ==
LOC: LAB.WCP 11:05
PROVIDERS: ATTEND Family Medicine
DX: E11.9 Type 2 diabetes mellitus without complications (principal)
CPT/HCPCS: 36415; 83036

== ENCOUNTER → 2019-05-25 | Outpatient (CLI) | payer MEDICARE, OTHER ==
[2019-05-25 19:02] LABS: CALCIUM 9.3 mg/dL (8.5-10.3); CREATININE 1.7 mg/dL (0.4-1.0)
== END ==
LOC: LAB.WCP 13:24
PROVIDERS: ATTEND Family Medicine
DX: R60.9 Edema, unspecified (principal)
CPT/HCPCS: 36415; 80048

== ENCOUNTER 2019-08-20 08:00 | Outpatient (CLI) | payer MEDICARE, OTHER ==
[2019-08-20 19:11] LABS: FERRITIN 38.9 ng/mL (11.0-306.8)
== END 2019-08-20 23:59 | disposition home or self-care (01) ==
LOC: LAB.WCP 08:00
PROVIDERS: ATTEND Family Medicine
DX: L65.9 Nonscarring hair loss, unspecified (principal)
CPT/HCPCS: 36415; 82728; 84443

== ENCOUNTER 2020-08-01 12:06 | Outpatient (CLI) | payer MEDICARE, OTHER ==
--- NOTE | 2020-08-01 13:57 | XRAY Report ---
PROCEDURE: Chest 2 View X-Ray INDICATIONS: R SIDE RIB PX, METASTATIC BREAST CANCER TECHNIQUE: 2 view(s) of the chest. COMPARISON: None. FINDINGS: Surgical changes and devices: Surgical clips in the right breast with partial meniscectomy. Lungs and pleura: No pleural effusions or pneumothorax. Lungs are clear. Mediastinum: Mediastinal contours are normal. Heart size is normal. Bones and chest wall: No suspicious bony abnormalities. Soft tissues appear unremarkable. IMPRESSION: No acute cardiopulmonary process demonstrated radiographically. Reviewed by: West Colindres MD on 08/01/2020 1:56 PM PDT Approved by: West Colindres MD on 08/01/2020 1:56 PM PDT Station ID: [id number]
== END 2020-08-01 12:07 | disposition home or self-care (01) ==
LOC: DI.N 12:06
PROVIDERS: ATTEND Family Medicine
DX: R07.81 Pleurodynia (principal); C50.919 Malignant neoplasm of unspecified site of unspecified female breast

== ENCOUNTER 2021-02-19 14:01 | Observation (INO) | payer MEDICARE, OTHER ==
[2021-02-19] MEDS ORDERED: HYDROmorphone 1 MG/ML CARPUJECT IVP STA ×2 (14:33→16:07)
[2021-02-19] MEDS ORDERED: ONDANSETRON 4 MG/2 ML VIAL IVP STA (14:33)
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
[2021-02-19] MEDS ORDERED: IOVERSOL 320 100 ML VIAL IVP ONE ×2 (14:45→17:52)
[2021-02-19 14:52] LABS: BASOPHILS # (AUTO) 0.1 10^3/uL (0.0-0.1); BASOPHILS % (AUTO) 0.4 %; EOSINOPHILS % (AUTO) 0.1 %; HGB - HEMOGLOBIN 10.2 g/dL (12.0-16.0); LYMPHOCYTES # (AUTO) 0.8 10^3/uL (1.5-3.5); MEAN CORPUSCULAR HEMOGLOBIN 21.9 pg (27.0-31.0); MEAN CORPUSCULAR HGB CONC 29.1 g/dL (32.0-36.0); MEAN CORPUSCULAR VOLUME 75.3 fL (81.0-99.0); MEAN PLATELET VOLUME 9.9 fL (7.9-10.8); MONOCYTES # (AUTO) 0.9 10^3/uL (0.0-1.0); MONOCYTES % (AUTO) 6.4 %; NEUTROPHILS # (AUTO) 11.6 10^3/uL (1.5-6.6); NEUTROPHILS % (AUTO) 86.7 %; PLT - PLATELET COUNT 180 10^3/uL (130-450); RED BLOOD COUNT 4.65 10^6/uL (4.20-5.40); RED CELL DISTRIBUTION WIDTH 16.7 % (12.0-15.0); WHITE BLOOD COUNT 13.4 x10^3/uL (4.8-10.8)
[2021-02-19 15:06] LABS: ALBUMIN 3.8 g/dL (3.2-5.5); ALBUMIN/GLOBULIN RATIO 0.9 (1.0-2.2); BILIRUBIN,TOTAL 1.9 mg/dL (0.2-1.0); CALCIUM 9.8 mg/dL (8.5-10.3); CREATININE 1.1 mg/dL (0.4-1.0); POTASSIUM 3.9 mmol/L (3.5-5.0); TOTAL PROTEIN 8.2 g/dL (6.7-8.2)
[2021-02-19 15:07] LABS: INR 1.5 (0.8-1.2); PT - PROTHROMBIN TIME 16.7 secs (9.9-12.6)
[2021-02-19 15:29] LABS: GLUCOSE, URINE (UA) NEGATIVE (NEGATIVE); KETONES,URINE (UA) NEGATIVE (NEGATIVE); LEUKOCYTE ESTERASE, URINE NEGATIVE (NEGATIVE); NITRITE,URINE NEGATIVE (NEGATIVE); OCCULT BLOOD,URINE TRACE-INTA (NEGATIVE); PROTEIN,URINE 100 mg/dL (NEGATIVE); UROBILINOGEN,URINE 1 (NORMAL) E.U./dL (NORMAL)
[2021-02-19 15:56] LABS: BACTERIA,URINE Few /HPF (None Seen); BILIRUBIN,URINE NEGATIVE (NEGATIVE); CLARITY,URINE CLEAR (CLEAR); ICTOTEST,URINE NEGATIVE; MUCUS,URINE Few Strands; SQUAMOUS EPITHELIAL CELL,UR FEW Squamous (<= Few)
[2021-02-19] MEDS ORDERED: PIPERACILLIN/TAZOBACTAM 3.375 GM in SODIUM CHLORIDE 0.9% MINIBAG 100 ML IV STA (16:02)
--- NOTE | 2021-02-19 16:29 | CT Report ---
PROCEDURE: Abdomen/Pelvis W INDICATIONS: IV only rlq pain CONTRAST: IV CONTRAST: Optiray 320 ml: 100 PO CONTRAST: *NO PO CONTRAST TECHNIQUE: After the administration of intravenous contrast, 5 mm thick sections acquired from the diaphragms to the symphysis. 5 mm thick coronal and sagittal reformats were acquired. For radiation dose reducti on, the following was used: automated exposure control, adjustment of mA and/or kV according to estelita ent size. COMPARISON: CT abdomen and pelvis 01/14/2018. FINDINGS: Image quality: Excellent. ABDOMEN: Lung bases: Round glass opacity at the left lung base. No pleural effusion. Heart size is normal. Rig ht breast clips. Solid organs: There is surface appears nodular. No focal lesion seen. Gallbladder is not distended. L ayering calcified gallstones. Biliary system is non dilated. Pancreas enhances normally. Mild splen omegaly measuring 13.9 cm. No adrenal nodules. Kidneys demonstrate normal size and enhancement, wit hout hydronephrosis. Peritoneum and bowel: The appendix is mildly dilated measuring up to 1.1 cm, (). There is fat str anding in the right lower quadrant adjacent to the appendix. Trace ascites. No pneumoperitoneum. Nodes and vessels: No retroperitoneal or mesenteric adenopathy by size criteria. Aorta and inferior vena cava are normal in size. Small varices. Miscellaneous: No ventral hernias. PELVIS: Genitourinary: Bladder is mostly decompressed. Trace free fluid in the pelvis. Anteverted uterus. Miscellaneous: No inguinal hernias or adenopathy. Bones: Scattered sclerotic foci are increased. For example left femoral neck sclerosis. Foci are iden tified for example left ilium adjacent to the SI joint, (). No vertebral body compression fractur es. IMPRESSION: 1. Dilated appendix with surrounding inflammatory change. Findings consistent with acute appendicitis . 2. Increased sclerotic osseous lesions consistent with metastatic disease. 3. Trace ascites. Liver nodularity is suggestive of cirrhosis. Small varices and mild splenomegaly. F indings suggestive of portal hypertension. 4. Gallstones. Results were communicated to Dr. Mina Melvin at 02/19/2021 4:27 PM PST. Reviewed by: Carlos Zimmerman MD on 02/19/2021 4:28 PM PST Approved by: Carlos Zimmerman MD on 02/19/2021 4:28 PM PST Station ID: [id number]
--- NOTE | 2021-02-19 16:35 | SURGERY HX AND PHYSICAL(T) ---
Surgical History & Physical - Chief Complaint/HPI Chief Complaint: Right lower quadrant pain History of Present Illness: Mirna is a 65-year-old lady with a personal history of metastatic breast cancer who presented with almost 24 hours of right lower quadrant pain. She denied any associated nausea or vomiting. She reports that she is very hungry and would very much like to eat right now.She is currently taking Faslodex and is on some sort of immunotherapy. Her oncologist is at [facility]. Her history is complicated by liver failure presumably associated with chemotherapy. She has no history of alcohol abuse.She reports that she has a history of ascites and has had paracentesis on a couple of occasions - none in the last 18 months.She does have a history of multiple or other abdominal operations. - PMH/PSH/Social Hx Does the pt have a hx of MRSA?: No Eyes, Ears, Nose, Throat: Chronic sinusitis Cardiovascular: Hypertension, High cholesterol, Murmur Respiratory: None Skin: Psoriasis Endocrine/Autoimmune: Type 2 diabetes Gastrointestinal: Hemorrhoids Urinary: Renal insuffiency Musculoskeletal: Fatigue, Chronic back pain Blood Disorders: None Psychiatric: None General: Colonoscopy Urologic: Bladder surgery Eyes Ears Nose Throat (EENT): Cataracts Smoking Status: Never smoker Does the pt drink ETOH?: No Does the pt have substance abuse?: No - Home Meds and Allergies Home Medications: Folic Acid 1 mg PO DAILY 10/21/12 Insulin Aspart [Novolog Flexpen] 0 - 10 units SUBQ TIDWM 03/20/15 Insulin Glargine [Lantus Solostar] 20 - 40 units SUBQ QPM 03/20/15 Letrozole [Femara] 2.5 mg PO DAILY 03/20/15 Famotidine 20 mg PO BID 06/10/17 Potassium Chloride [Klor-Con M20] 20 meq PO DAILY 06/10/17 amLODIPine [Norvasc] 5 mg PO DAILY 06/10/17 Atorvastatin Calcium 40 mg PO QPM 06/14/17 Allergies/Adverse Reactions: Allergies Allergy/AdvReac Type Severity Reaction Status Date / Time shrimp Allergy Severe Hives Verified 02/19/21 14:11 indomethacin [From Indocin] Allergy Intermediate Rash Verified 02/19/21 14:11 lisinopril Allergy Intermediate cough Verified 02/19/21 14:11 levofloxacin [From Levaquin] Allergy Unknown rash? Verified 02/19/21 14:11 metformin Allergy Unknown Verified 02/19/21 14:11 telmisartan [From Micardis] Allergy Unknown Verified 02/19/21 14:11 oxycodone HCl * AdvReac Emesis Verified 02/19/21 14:11 [From Percocet] - Review of Systems Constitutional: Fatigue HEENT: No: Headaches, Visual changes, Sore throat Skin: No: Jaundice, Bruising Cardiac: No: AFIB Respiratory: No: Shortness of breath, Cough Gastrointestinal: Abdominal pain. No: Nausea, Vomiting, Constipation, Diarrhea Gentinourinary: No: Dysuria, Frequency Neurological: No: Dizziness Musculoskeletal: Back pain, Joint pain or stiffness Hematologic: Anemia, Bleeding or bruising Endocrinologic: Cold or heat intolerances - Vital Signs Heart Rate: 115 Blood Pressure: 120/61 Temperature: 37.3 C Respiratory Rate: 14 O2 Saturation: 95 Weight (kg): 90.718 kg Height: 1.63 m - Physical Exam General Appearance: positive: Alert, Mild distress Eyes Bilatera: positive: Normal inspection, PERRL, EOMI ENT: positive: ENT inspection nml, Pharynx nml, No signs of dehydration Neck: positive: Nml inspection, Thyroid nml, No JVD Respiratory: positive: Chest non-tender, No respiratory distress, Breath sounds nml Cardiovascular: positive: Regular rate & rhythm Peripheral Pulses: positive: 0 Abdomen: positive: Nml bowel sounds, Tenderness, Guarding, Rebound, Other (Rotund) Skin: positive: Color nml Extremities: positive: Non-tender, No pedal edema Neurologic/Psychiatric: positive: Oriented x3 - Patient Review Patient Review: Problems were reviewed with the patient during this visit. Medications were reviewed with the patient during this visit. Allergies were reviewed this patient during this visit. Pertinent Tests Reviewed: All pertitent test for this patient were reviewed. - Assessment & Plan Assessment and Plan: CT scan was reviewed and is consistent with mild to moderate acute appendicitis without evidence of perforation. Also she does have trace ascites. We have discussed the option of antibiotic therapy with surgery to follow if she does not improve overnight versus immediate surgical intervention. She is a higher than usual risk for complications related to surgical intervention due to her elevated prothrombin time, history of ascites, and chronic renal insufficiency as well as diabetes.I have recommended that we start with IV antibiotic therapy. I think we have a very strong chance of achieving a good result and being able to avoid surgery in this instance. Certainly if we are successful and appendicitis recurs, we will just have to take her appendix out at that time. She is in agreement with this plan. She will be admitted here for the beginning of IV antibiotic therapy and watchful waiting.
[2021-02-19] MEDS ORDERED: SODIUM CHLORIDE FLUSH 0.9% 10 ML SYRINGE IVP PRN (16:40)
[2021-02-19] MEDS ORDERED: ONDANSETRON 4 MG/2 ML VIAL IVP PRN (16:40)
[2021-02-19] MEDS ORDERED: CYCLOBENZAPRINE 10 MG TABLET PO PRN (16:46)
[2021-02-19] MEDS: INSULIN ASPART 300 UNIT/3 ML PEN SUBQ SCH ×2 (18:51→21:27)
[2021-02-19] MEDS: LACTATED RINGERS 1,000 ML IV SCH (18:54)
[2021-02-19] MEDS: SODIUM CHLORIDE FLUSH 0.9% 10 ML SYRINGE IVP SCH ×2 (18:54→23:59)
[2021-02-19 18:58] LABS: B. PARAPERTUSSIS- RESP PCR PAN NOT DETECTED; B. PERTUSSIS- RESP PCR PANEL NOT DETECTED; C. PNEUMONIAE- RESP PCR PANEL NOT DETECTED; CORONAVIRUS 229E-RESP PCR NOT DETECTED; CORONAVIRUS HKU1-RESP PCR NOT DETECTED; CORONAVIRUS NL63-RESP PCR NOT DETECTED; CORONAVIRUS OC43-RESP PCR NOT DETECTED; HUMAN METAPNEUMOVIRUS NOT DETECTED; INFLUENZA A- RESP PCR PANEL NOT DETECTED; INFLUENZA B - RESP PCR PANEL NOT DETECTED; M. PNEUMONIAE- RESP PCR PANEL NOT DETECTED; PARAINFLUENZA VIRUS 1 NOT DETECTED; PARAINFLUENZA VIRUS 2 NOT DETECTED; PARAINFLUENZA VIRUS 3 NOT DETECTED; PARAINFLUENZA VIRUS 4 NOT DETECTED; RHINOVIRUS/ENTEROVIRUS NOT DETECTED; RSV- RESP PCR PANEL NOT DETECTED; SARS-CoV-2 -RESP PCR PANEL NOT DETECTED
[2021-02-19] MEDS: PIPERACILLIN/TAZOBACTAM 3.375 GM in SODIUM CHLORIDE 0.9% MINIBAG 100 ML IV SCH (19:35)
[2021-02-19] MEDS ORDERED: ATORVASTATIN 40 MG TABLET PO SCH (21:00)
[2021-02-19] MEDS ORDERED: ACETAMINOPHEN 1,000 MG/100 ML 100 ML IV ONE (21:42)
[2021-02-19] MEDS ORDERED: LACTATED RINGERS 1,000 ML IV SCH (22:00)
[2021-02-19] MEDS ORDERED: KETOROLAC 15 MG/ML VIAL IVP SCH (22:00)
[2021-02-19] MEDS: HYDROmorphone 1 MG/ML CARPUJECT IVP PRN (23:59)
[2021-02-20] MEDS: HYDROmorphone 1 MG/ML CARPUJECT IVP PRN ×5 (02:57→19:14)
[2021-02-20] MEDS: PIPERACILLIN/TAZOBACTAM 3.375 GM in SODIUM CHLORIDE 0.9% MINIBAG 100 ML IV SCH ×2 (03:02→11:57)
[2021-02-20 05:42] LABS: BASOPHILS # (AUTO) 0.1 10^3/uL (0.0-0.1); BASOPHILS % (AUTO) 0.3 %; EOSINOPHILS % (AUTO) 0.2 %; HCT - HEMATOCRIT 33.1 % (37.0-47.0); HGB - HEMOGLOBIN 9.5 g/dL (12.0-16.0); LYMPHOCYTES # (AUTO) 1.6 10^3/uL (1.5-3.5); MEAN CORPUSCULAR HEMOGLOBIN 21.9 pg (27.0-31.0); MEAN CORPUSCULAR HGB CONC 28.7 g/dL (32.0-36.0); MEAN CORPUSCULAR VOLUME 76.4 fL (81.0-99.0); MEAN PLATELET VOLUME 10.4 fL (7.9-10.8); MONOCYTES # (AUTO) 1.3 10^3/uL (0.0-1.0); MONOCYTES % (AUTO) 7.4 %; NEUTROPHILS # (AUTO) 14.9 10^3/uL (1.5-6.6); NEUTROPHILS % (AUTO) 82.4 %; PLT - PLATELET COUNT 150 10^3/uL (130-450); RED BLOOD COUNT 4.33 10^6/uL (4.20-5.40); RED CELL DISTRIBUTION WIDTH 17.1 % (12.0-15.0)
[2021-02-20 05:44] LABS: SLIDE REVIEW? Indicated
[2021-02-20] MEDS: INSULIN REGULAR HUMAN 300 UNIT/3 ML VIAL SUBQ SCH ×3 (05:44→18:21)
[2021-02-20 05:55] LABS: ALBUMIN 3.4 g/dL (3.2-5.5); ALBUMIN/GLOBULIN RATIO 0.9 (1.0-2.2); BILIRUBIN,TOTAL 2.7 mg/dL (0.2-1.0); CALCIUM 9.2 mg/dL (8.5-10.3); CREATININE 1.8 mg/dL (0.4-1.0); POTASSIUM 4.4 mmol/L (3.5-5.0); TOTAL PROTEIN 7.2 g/dL (6.7-8.2)
[2021-02-20 06:03] LABS: PLATELET ESTIMATE, MANUAL NORMAL (130-450,000) (NORMAL); PLATELET MORPHOLOGY NORMAL APPEARANCE (NORMAL); RBC MORPHOLOGY (MULTIPLE) 1+ HYPOCHROMASIA (NORMAL); WBC MORPHOLOGY (MULTIPLE) NORMAL APPEARANCE (NORMAL)
[2021-02-20] MEDS ORDERED: PANTOPRAZOLE 40 MG VIAL IVP SCH (07:00)
[2021-02-20] MEDS ORDERED: amLODIPine 5 MG TABLET PO SCH (09:00)
[2021-02-20] MEDS ORDERED: ENOXAPARIN 40 MG/0.4 ML SYRINGE SUBQ SCH (09:00)
[2021-02-20] MEDS ORDERED: FOLIC ACID 1 MG TABLET PO SCH (09:00)
[2021-02-20] MEDS ORDERED: LETROZOLE 2.5 MG PO SCH (09:00)
[2021-02-20] MEDS: SODIUM CHLORIDE FLUSH 0.9% 10 ML SYRINGE IVP SCH ×2 (13:12→16:11)
[2021-02-20] MEDS: LACTATED RINGERS 1,000 ML IV SCH (16:10)
--- NOTE | 2021-02-20 16:45 | Discharge Plan ---
Discharge Plan Problem Reviewed?: Yes Disposition: 02 Transfer Acute Care Hosp Condition: Fair Assessment: 1. Acute appendicitis 2. Cirrhosis with elevated t bili and INR 3. Chronic renal insufficiency 4. Metastatic breast cancer Transfer to [facility] for coordinated surgical and specialist management No Smoking: If you smoke, Please STOP! Call for help. Follow-up with: Juanito Wilkins DO [Primary Care Provider] -
--- NOTE | 2021-02-20 16:48 | DISCHARGE SUMMARY ---
"Discharge Summary Admit Date: 02/19/21 Discharge Date: 02/20/21 Discharging Provider: MD Gigi Code Status: Attempt Resuscitation Condition at Discharge: Fair Discharge Disposition: 02 Transfer Acute Care Hosp Discharge Facility Name: [facility] - DIAGNOSES Admission Diagnoses: Acute appendicitis Discharge Diagnoses with Status of Each Condition: 1. Acute appendicitis - not responding to IV antibiotic therapy, increasing WBC 2. Cirrhosis - increasing bilirubin 3. Chronic renal insufficiency - Cr elevated 4. Metastatic breast cancer - stable - HPI History of Present Illness: Mirna is a 65-year-old lady with a personal history of metastatic breast cancer who presented with almost 24 hours of right lower quadrant pain. She denied any associated nausea or vomiting. She reports that she is very hungry and would very much like to eat right now.She is currently taking Faslodex and is on some sort of immunotherapy. Her oncologist is at [facility]. Her hi story is complicated by liver failure presumably associated with chemotherapy. She has no history of alcohol abuse.She reports that she has a history of ascites and has had paracentesis on a couple of occasions - none in the last 18 months.She does have a history of multiple or other abdominal operations. - CONSULTS | PROCEDURES Consultations: Hospitalist Service Procedures: None - HOSPITAL COURSE Hospital Course: The patient was admitted to the med/surg floor and started on Zosyn. She complained of pain throughout the night and was treated with 1 mg of dialudid every 3 hours. She was febrile overnight as well with temp as high as 38.6. Her temperature normalized with 1 dose of tylenol and 1 dose of toradol, 15mg. She was treated with gentle fluid resuscitation but required 1 - 2 L O2 per nasal cannula to maintain sat > 92%. She complained of pain and hunger throughout her admission. This morning she was noted to have an increase in WBC from 13 to 18 and reported her pain was as bad as at the time of admission if not worse. Her bilirubin was also notably heading in the wrong direction. Transfer was initiated and Dr. Camille Dee kindly agreed to take on the care of this un fortunate lady. I have spoken with the patient and her son, Moshe Cavanaugh ([phone]), and they have communicated with her who is having some phone issues. She is in agreement with the plan for transfer for specialist care and services not available at this facility. - ALLERGIES Allergies/Adverse Reactions: Allergies Allergy/AdvReac Type Severity Reaction Status Date / Time shrimp Allergy Severe Hives Verified 02/19/21 14:11 indomethacin [From Indocin] Allergy Intermediate Rash Verified 02/19/21 14:11 lisinopril Allergy Intermediate cough Verified 02/19/21 14:11 levofloxacin [From Levaquin] Allergy Unknown rash? Verified 02/19/21 14:11 metformin Allergy Unknown Verified 02/19/21 14:11 telmisartan [From Micardis] Allergy Unknown Verified 02/19/21 14:11 oxycodone HCl * AdvReac Emesis Verified 02/19/21 14:11 [From Percocet] - MEDICATIONS Home Medications: Ambulatory Orders Medication Instructions Recorded Confirmed Folic Acid 1 mg PO DAILY 10/21/12 02/20/21 Insulin Aspart [Novolog Flexpen] 18 - 25 units SUBQ TIDWM 03/20/15 01/14/18 Letrozole [Femara] 2.5 mg PO DAILY 03/20/15 02/20/21 Famotidine 20 mg PO BID 06/10/17 02/20/21 amLODIPine [Norvasc] 5 mg PO DAILY 06/10/17 02/20/21 Duloxetine HCl [Cymbalta] 60 mg PO DAILY 02/20/21 02/20/21 Furosemide [Lasix] 40 mg PO BID 02/20/21 02/20/21 Insulin NPH Human Isophane 62 units SUBQ BID 02/20/21 [Humulin N Kwikpen] Spironolactone [Aldactone] 50 mg PO BID 02/20/21 02/20/21 - PHYSICAL EXAM AT DISCHARGE General Appearance: positive: Alert, Mild distress Eyes Bilateral: positive: Normal inspection, PERRL, EOMI ENT: positive: ENT inspection nml Neck: positive: Nml inspection Respiratory: positive: Chest non-tender, No respiratory distress Cardiovascular: positive: Regular rate & rhythm Peripheral Pulses: positive: 0 Abdomen: positive: Nml bowel sounds, Tenderness, Guarding Skin: positive: Color nml Neurologic/Psychiatric: positive: Oriented x3 - LABS Result Diagrams: 02/20/21 05:34 02/20/21 05:34 - QUALITY (Female Hip Fx Only) Was patient sent home on osteoporosis medication?: No - FOLLOW UP Follow Up: Per [facility] - TIME SPENT Time Spent in Discharge (Minutes): 30"
[2021-02-20 18:27] VITALS: BP 96/62
== END 2021-02-20 19:15 | disposition short-term general hospital (02) ==
LOC: ED 14:01 → MS2 16:40
PROVIDERS: ADMIT Surgery; ATTEND Surgery
DX: K35.80 Unspecified acute appendicitis (principal); E78.00 Pure hypercholesterolemia, unspecified; I12.9 Hypertensive chronic kidney disease with stage 1 through stage 4 chronic kidney disease, or unspecified chronic kidney disease; E11.22 Type 2 diabetes mellitus with diabetic chronic kidney disease; N18.9 Chronic kidney disease, unspecified; K74.60 Unspecified cirrhosis of liver; C50.919 Malignant neoplasm of unspecified site of unspecified female breast; C79.9 Secondary malignant neoplasm of unspecified site; Z20.822 Contact with and (suspected) exposure to COVID-19; Z79.899 Other long term (current) drug therapy; Z79.4 Long term (current) use of insulin
CPT/HCPCS: 36415; 51701; 74177; 80053; 81001; 83690; 85025; 85610; 87631; 96365; 96366; 96372; 96375; 96376; 99284; 99285; A9270; G0378; J0131; J1170; J1650; J1815; J7120; Q9967; 0202U; 81003; 87086

== ENCOUNTER 2022-09-24 08:00 | Outpatient (CLI) | payer MEDICARE, OTHER ==
[2022-09-24 18:09] LABS: BILIRUBIN,URINE NEGATIVE (NEGATIVE); GLUCOSE, URINE (UA) NEGATIVE (NEGATIVE); KETONES,URINE (UA) NEGATIVE (NEGATIVE); LEUKOCYTE ESTERASE, URINE TRACE (NEGATIVE); NITRITE,URINE NEGATIVE (NEGATIVE); OCCULT BLOOD,URINE TRACE-LYSE (NEGATIVE); PROTEIN,URINE 30 mg/dL (NEGATIVE); UROBILINOGEN,URINE 1 (NORMAL) E.U./dL (NORMAL)
[2022-09-24 18:12] LABS: CLARITY,URINE HAZY (CLEAR)
[2022-09-24 18:19] LABS: BACTERIA,URINE Many /HPF (None Seen); RBC,URINE 0-5 /HPF (0-5); SQUAMOUS EPITHELIAL CELL,UR MOD Squamous (<= Few)
== END 2022-09-24 23:59 | disposition home or self-care (01) ==
LOC: LAB.N 08:00
PROVIDERS: ATTEND Physician Assistant
DX: Z85.51 Personal history of malignant neoplasm of bladder (principal)
CPT/HCPCS: 81001; 81003; 87086

== ENCOUNTER 2023-10-29 18:49 | Emergency (ER) | payer MEDICARE, OTHER ==
[2023-10-29 19:50] LABS: BASOPHILS % (AUTO) 0.7 %; EOSINOPHILS # (AUTO) 0.1 10^3/uL (0.0-0.7); EOSINOPHILS % (AUTO) 2.7 %; HCT - HEMATOCRIT 33.3 % (37.0-47.0); HGB - HEMOGLOBIN 10.8 g/dL (12.0-16.0); LYMPHOCYTES # (AUTO) 0.5 10^3/uL (1.5-3.5); LYMPHOCYTES % (AUTO) 10.9 %; MEAN CORPUSCULAR HEMOGLOBIN 32.4 pg (27.0-31.0); MEAN CORPUSCULAR HGB CONC 32.4 g/dL (32.0-36.0); MEAN PLATELET VOLUME 10.3 fL (7.9-10.8); MONOCYTES # (AUTO) 0.4 10^3/uL (0.0-1.0); MONOCYTES % (AUTO) 9.1 %; NEUTROPHILS # (AUTO) 3.4 10^3/uL (1.5-6.6); NEUTROPHILS % (AUTO) 76.4 %; PLT - PLATELET COUNT 115 10^3/uL (130-450); RED BLOOD COUNT 3.33 10^6/uL (4.20-5.40); RED CELL DISTRIBUTION WIDTH 20.7 % (12.0-15.0); WHITE BLOOD COUNT 4.4 x10^3/uL (4.8-10.8)
[2023-10-29] MEDS: ACETAMINOPHEN 500 MG TABLET PO STA (19:51)
[2023-10-29 19:53] LABS: SLIDE REVIEW? Indicated
--- NOTE | 2023-10-29 20:02 | ED Physician Documentation ---
History of Present Illness - Stated complaint Stated Complaint: LT SIDE PX - Chief complaint Chief Complaint: Trauma Ch/Bk - Additonal information Additional information: 68-year-old female presents emergency department after experiencing a mechanical ground-level fall. Patient says that she currently has breast cancer with bony mets lately she has been noticing that her left leg has been locking up on her today when she got up she felt her left leg lock up on her and she fell onto the floor mostly onto her left side, left hand/wrist left ribs and she did hit her face but says that she hardly hit her head because she is mostly able to catch her fall with her left hand. 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 : Renal insuffiency HEENT: Chronic sinusitis Psych: None Musculoskeletal: Fatigue, Chronic back pain Derm: Psoriasis Other Past Medical History: Bone mets - Past Surgical History Past Surgical History: Yes General: Colonoscopy /SUPERVISOR WET END: section HEENT: Cataracts - Present Medications Home Medications: Ambulatory Orders Medication Instructions Recorded Confirmed Folic Acid 1 mg PO DAILY 10/21/12 02/20/21 Insulin Aspart [Novolog Flexpen] 18 - 25 units SUBQ TIDWM 03/20/15 01/14/18 Letrozole [Femara] 2.5 mg PO DAILY 03/20/15 02/20/21 Famotidine 20 mg PO BID 06/10/17 02/20/21 amLODIPine [Norvasc] 5 mg PO DAILY 06/10/17 02/20/21 Duloxetine HCl [Cymbalta] 60 mg PO DAILY 02/20/21 02/20/21 Furosemide [Lasix] 40 mg PO BID 02/20/21 02/20/21 Insulin NPH Human Isophane 62 units SUBQ BID 02/20/21 [Humulin N Kwikpen] Spironolactone [Aldactone] 50 mg PO BID 02/20/21 02/20/21 HYDROcod/ACETAM 5/325 [[place] 5/325] 1 tablet PO Q6H PRN #10 tablet 10/29/23 - Allergies Allergies/Adverse Reactions: Allergies Allergy/AdvReac Type Severity Reaction Status Date / Time shrimp Allergy Severe Hives Verified 10/29/23 19:13 indomethacin [From Indocin] Allergy Intermediate Rash Verified 10/29/23 19:13 lisinopril Allergy Intermediate cough Verified 10/29/23 19:13 levofloxacin [From Levaquin] Allergy Unknown rash? Verified 10/29/23 19:13 metformin Allergy Unknown Verified 10/29/23 19:13 telmisartan [From Micardis] Allergy Unknown Verified 10/29/23 19:13 - Social History Does the pt smoke?: No Smoking Status: Never smoker Does the pt drink ETOH?: No Does the pt have substance abuse?: No - Immunizations Immunizations are current?: Yes - POLST Patient has POLST: No PD ED PE NORMAL - Vitals Vital signs reviewed: Yes - General General: Alert and oriented X 3, No acute distress, Well developed/nourished - HEENT HEENT: Atraumatic, PERRL, Moist mucous membranes - Neck Neck: C-Spine cleared by NEXUS criteria Results - Vitals Vitals: Vital Signs - 24 hr 10/29/23 10/29/23 10/29/23 19:00 19:32 21:00 Temperature 36.8 C Heart Rate 75 72 77 Respiratory 19 16 Rate Blood Pressure 126/53 L 124/61 O2 Saturation 97 98 10/29/23 23:07 Temperature Heart Rate 74 Respiratory 18 Rate Blood Pressure 128/66 O2 Saturation 98 Oxygen O2 Source Room air - Labs Labs: Laboratory Tests 10/29/23 10/29/23 19:44 19:44 WBC 4.4 L RBC 3.33 L Hgb 10.8 L Hct 33.3 L MCV 100.0 H MCH 32.4 H MCHC 32.4 RDW 20.7 H Plt Count 115 L MPV 10.3 Neut # (Auto) 3.4 Lymph # (Auto) 0.5 L [place] # (Auto) 0.4 Eos # (Auto) 0.1 Baso # (Auto) 0.0 Absolute Nucleated RBC 0.00 Nucleated RBC % 0.0 Manual Slide Review Indicated Platelet Estimate DECREASED (<130,000) Platelet Morphology NORMAL APPEARANCE RBC Morph Micro Appear 1+ ACANTHOCYTES Sodium 138 Potassium 3.9 Chloride 109 Carbon Dioxide 23 Anion Gap 6.0 BUN 21 H Creatinine 1.0 Estimated GFR (MDRD) 55 L Glucose 101 Calcium 10.0 Magnesium 1.8 Total Bilirubin 1.4 H AST 20 ALT 12 Alkaline Phosphatase 184 H Total Protein 6.8 Albumin 4.2 Globulin 2.6 Albumin/Globulin Ratio 1.6 Lipase 44 - Rads (name of study) Left wrist x-rays Relevant Findings:: Final report received, EMP independent interpretation of test, Other (No acute left wrist fracture dislocation) Left hand x-rays Relevant Findings:: Final report received, EMP independent interpretation of test, Other (Mild dorsal soft tissue swelling over the metacarpal bones no acute bony fractures or dislocations.) Chest CT without Relevant Findings:: Final report received, EMP independent interpretation of test, Other (No acute cardiopulmonary abnormalities. Mild thyromegaly without focal thyroid nodules. Small pulmonary nodules, nondisplaced left lateral axillary rib fracture at the sixth rib.) Head CT without Relevant Findings:: Final report received, EMP independent interpretation of test, Other (No intracranial hemorrhages or abnormalities.) PD Medical Decision Making - ED course ED course: 68-year-old female presents emergency department after experiencing a mechanical ground-level fall. Patient says it is very normal for her for her right leg to lock up on her and caused her to have some falls. She says that most of her pain is to the left anterior region of her rib area. She had no loss of consciousness no nausea or vomiting. Consider doing a cervical CT but patient denies any cervical pain or tenderness and C-spine cleared with Nexus criteria. Head CT was complete for further evaluation as she says that she did hit her head on her fall but no loss of consciousness no intracranial hemorrhages or abnormalities were found. Left wrist and hand x-rays were also complete as patient was complaining of some left anterior wrist pain and swelling and no acute bony fractures were found. Kemar wrap was applied over her left wrist that she could be experiencing possible sprain versus contusion she has no snuffbox tenderness. Chest CT without, radiology read did not state any rib fractures but was able to visualize left 6th anterior axillary rib fracture. I am prescribing a short course of short-acting opioid pain medication for this patient. 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 I have discussed that the opioids are for short term therapy only, and will not be refilled from the ED. Patient told strict return precautions told to follow-up with her primary care provider about today's ER visit she safer discharge at this time able to ambulate without any difficulty remains neurologically intact with no neurological deficits. Departure - Departure Disposition: 01 Home, Self Care Clinical Impression: Ground-level fall, Rib fracture, Sprain of wrist, left Instructions: Wrist Sprain, ED Fx Rib Prescriptions: HYDROcod/ACETAM 5/325 [[place] 5/325] 1 tablet PO Q6H PRN #10 tablet PRN Reason: Pain Comments: You have 1 single rib fracture at the sixth left rib. You can take Tylenol ibuprofen for pain and discomfort and I have also sent a prescription of [place] to [facility] for additional pain relief. You can also put lidocaine patch over the left rib. Keep in mind these can take up to 6 weeks to heal. If he started to have any fevers or chills shortness of breath or chest pain please come back into the emergency department for further evaluation. I am prescribing a short course of narcotic pain medication for you. These are potentially dangerous and addictive medications that should be used carefully. These medications may constipate you. Take an [id number]-[id number] stool softener (docusate) twice daily with plenty of water while taking these medications. If you go 24 hours without a bowel movement, take [id number] miralax, per package instructions. Do not drink or drive while taking these medications. If you received narcotic or sedating medications while in the emergency department, do not drive for 24 hours. Store this medication in a safe, secure place and out of reach of children. It is a violation of federal law to give or sell this medication to another person or to use in a manner other than prescribed. The ED will not refill narcotic prescriptions, including prescriptions lost or stolen. To dispose of unwanted medications: 1. [facility] at [address] in [place] has a medication drop box. They accept prescription medications (in pill form) Friday through Friday 9:00 a.m. to 5:00 p.m. 2. The [facility] [employer] accepts prescription medications (in pill form only) for disposal year round. Call for more information. 3. Contact the [facility] for the next [facility] sponsored prescription drug collection event. , [phone], or [phone]; Note that many narcotic pain relievers also contain Tylenol/acetaminophen. Please ensure that your total dose of acetaminophen from all sources does not exceed 3 g (3000 mg) per day.. Forms: PCP List Discharge Date/Time: 10/29/23 23:10
[2023-10-29 20:07] LABS: ALBUMIN 4.2 g/dL (3.2-5.5); ALBUMIN/GLOBULIN RATIO 1.6 (1.0-2.2); BILIRUBIN,TOTAL 1.4 mg/dL (0.2-1.0); MAGNESIUM 1.8 mg/dL (1.7-2.3); POTASSIUM 3.9 mmol/L (3.5-4.5); TOTAL PROTEIN 6.8 g/dL (6.4-8.9)
[2023-10-29 20:12] LABS: PLATELET ESTIMATE, MANUAL DECREASED (<130,000) (NORMAL); PLATELET MORPHOLOGY NORMAL APPEARANCE (NORMAL)
--- NOTE | 2023-10-29 20:39 | XRAY Report ---
PROCEDURE: Wrist 3+V LT INDICATIONS: left wrist pain and swelling after GLF TECHNIQUE: 3 views of the wrist were acquired. COMPARISON: None. FINDINGS: Bones: No fractures or dislocations. No suspicious bony lesions. Soft tissues: No suspicious soft tissue calcifications or masses. IMPRESSION: No acute left wrist fracture or dislocation. Reviewed by: Silverio Bush MD on 10/29/2023 8:38 PM PDT Approved by: Silverio Bush MD on 10/29/2023 8:38 PM PDT Station ID: [id number]
--- NOTE | 2023-10-29 20:40 | XRAY Report ---
PROCEDURE: Hand 1-2V LT INDICATIONS: GLF, left hand swelling TECHNIQUE: 3 views of the hand(s) acquired. COMPARISON: None. FINDINGS: Bones: No fractures or dislocations. No suspicious bony lesions. Soft tissues: No suspicious soft tissue calcifications or masses. IMPRESSION: No acute left hand fracture or dislocation. Mild dorsal soft tissue swelling over the metacarpal bone s. Reviewed by: Silverio Bush MD on 10/29/2023 8:39 PM PDT Approved by: Silverio Bush MD on 10/29/2023 8:39 PM PDT Station ID: [id number]
[2023-10-29] MEDS: KETOROLAC 15 MG/ML VIAL IVP STA (20:56)
[2023-10-29 21:03] VITALS: O2SAT 98
--- NOTE | 2023-10-29 21:22 | CT Report ---
PROCEDURE: Head WO INDICATIONS: GLF, head injury TECHNIQUE: Noncontrast 4.5 mm thick angled axial sections acquired from the foramen magnum to the vertex. For r adiation dose reduction, the following was used: automated exposure control, adjustment of mA and/or kV according to patient size. COMPARISON: MRI brain 09/04/2017. FINDINGS: Image quality: Excellent. CSF spaces: Basal cisterns are patent. No extra-axial fluid collections. Ventricles are normal in size and shape. Brain: No midline shift. No intracranial masses or hemorrhage. Age-related global volume loss and chronic microvascular ischemic changes. Intracranial atherosclerotic vascular calcifications. Coombs-w ольга matter interface is normal. Skull and face: Calvarium and visualized facial bones are intact, without suspicious lesions. Sinuses: Visualized sinuses and mastoids are clear. IMPRESSION: No acute intracranial pathology. Reviewed by: Jose Kennedy MD on 10/29/2023 9:21 PM PDT Approved by: Jose Kennedy MD on 10/29/2023 9:21 PM PDT Station ID: [id number]
--- NOTE | 2023-10-29 22:24 | CT Report ---
PROCEDURE: Chest WO INDICATIONS: GLF, severe left anterior rib pain TECHNIQUE: A CT scan of the chest was performed. Intravenous contrast media was not administered. Images were re corded and evaluated at appropriate window settings. Reformats: axial MIP of the chest, coronal and s agittal. For radiation dose reduction, the following was used: automated exposure control, adjustment of mA and/or kV according to patient size. COMPARISON: Chest radiograph dated 08/01/2020. FINDINGS: Image quality: Diagnostic. Chest wall and lower neck: No thyroid nodule which requires sonographic follow up. Generalized thyrom egaly. No axillary or supraclavicular adenopathy by size. Postsurgical changes of prior right partial mastectomy and right axillary node dissection. No suspicious mass lesions identified. Lungs and pleura: No consolidation. No pleural effusions. No pneumothorax. 3 mm right upper lobe nod ule (43 5 series 4). A 3 mm posterior left lower lobe nodule (63/series 4). Bibasilar atelectasis. N o septal thickening or nodularity. Mediastinum: Heart size is normal. No pericardial effusion. No large vessel abnormality. No mediastin al adenopathy by size criteria. Bones: Multiple scattered sclerotic foci seen throughout the imaged cervical and thoracic spine as we ll as multiple ribs, left clavicle, bilateral humeri and bilateral scapula. No pathologic fracture se en. No acute compression fracture. Upper Abdomen: Cholelithiasis without CT evidence for acute cholecystitis. Nodular liver contour sugg estive of cirrhosis. Splenomegaly.. IMPRESSION: CT chest without acute cardiopulmonary abnormalities. Findings compatible with prior partial right mastectomy and right axillary dissection without evidenc e for suspicious mass or adenopathy. However, numerous scattered sclerotic osseous lesions seen throu ghout the imaged skeleton suspicious for osseous metastases. Recommend outpatient nuclear medicine cinthya ne scan for further evaluation. Mild thyromegaly without focal thyroid nodules. Small pulmonary nodules measuring up to 3 mm seen in the right upper lobe and left lower lobe. Follow -up recommended. Cholelithiasis without CT evidence for acute cholecystitis. Findings compatible with cirrhosis and splenomegaly. Reviewed by: Justin Gibson MD on 10/29/2023 10:23 PM PDT Approved by: Justin Gibson MD on 10/29/2023 10:23 PM PDT Station ID: [id number]
[2023-10-29] MEDS: HYDROcod/ACET 5/325 Prepack 4 PO STA (22:58)
[2023-10-29] MEDS: oxyCODONE 5 MG TABLET PO STA (22:58)
[2023-10-29 23:08] VITALS: BP 128/66
== END 2023-10-29 23:10 | disposition home or self-care (01) ==
LOC: ED 18:49
DX: S22.32XA Fracture of one rib, left side, initial encounter for closed fracture (principal); S63.502A Unspecified sprain of left wrist, initial encounter; S09.90XA Unspecified injury of head, initial encounter; W19.XXXA Unspecified fall, initial encounter; M79.89 Other specified soft tissue disorders; R91.8 Other nonspecific abnormal finding of lung field
CPT/HCPCS: 36415; 70450; 71250; 73110; 73120; 80053; 83690; 83735; 85025; 96374; 99284; A9270